=== PATIENT | female | born 1990 | race Caucasian/White ===

== ENCOUNTER 2019-07-13 08:53 | Outpatient (RCR) | payer OTHER, SELFPAY ==
[2019-07-13] MEDS: TETANUS,DIPHTHERIA,AC PERTUSSIS ADULT 0.5 ML (ADACEL) IM (09:17)
[2019-07-13] MEDS: RHO(D) IMMUNE GLOBULIN 300 MCG SYRINGE IM (09:18)
== END 2019-10-10 23:59 | disposition home or self-care (01) ==
LOC: ANHLAB 08:53
PROVIDERS: PCP Internal Medicine; Visit Provider Student in an Organized Health Care Education/Training Program
DX: Z29.13 Encounter for prophylactic Rho(D) immune globulin (principal); O36.0990 Maternal care for other rhesus isoimmunization, unspecified trimester, not applicable or unspecified; Z3A.00 Weeks of gestation of pregnancy not specified; Z23 Encounter for immunization
CPT/HCPCS: 36415; 86900; 86901; 90384; 90715; 96372; J2790

== ENCOUNTER 2019-07-15 09:47 | Outpatient (RCR) | payer OTHER, SELFPAY ==
[2019-07-15 10:21] VITALS: BMI 39.6
== END 2019-10-13 23:59 | disposition home or self-care (01) ==
LOC: ANHDMC 09:47
PROVIDERS: PCP Internal Medicine
DX: O24.410 Gestational diabetes mellitus in pregnancy, diet controlled (principal); Z71.3 Dietary counseling and surveillance; Z71.89 Other specified counseling
CPT/HCPCS: 97802; G0108

== ENCOUNTER 2019-09-15 15:24 | Outpatient (CLI) | payer OTHER, SELFPAY ==
[2019-09-15 15:46] VITALS: BP 156/85; PULSE 77
[2019-09-15 15:57] LABS: Basophils Percent Auto 0.1 % (0.2-1.2); Eosinophils Percent Auto 0.4 % (0-4.4); Hematocrit 35.9 % (37.0-47.0); Hemoglobin 12.1 g/dL (12.0-15.0); Immature Granulocyte Absolute 0.02 K/mm3 (0.00-0.031); Immature Granulocyte Percent A 0.2 % (0-0.5); Lymphocytes Absolute Auto 2.09 K/mm3 (0.9-3.2); Lymphocytes Percent Auto 22.2 % (18.3-44.2); Mean Corpuscular HGB Conc 33.7 g/dl (32-36); Mean Corpuscular Hemoglobin 29.4 pg (26-34); Mean Corpuscular Volume 87.3 fl (80-100); Mean Platelet Volume 9.9 fl (7.4-10.4); Monocytes Absolute Auto 0.6 K/mm3 (0.1-0.6); Monocytes Percent Auto 5.8 % (2.6-8.5); Neutrophils Absolute Auto 6.7 K/mm3 (1.3-6.7); Neutrophils Percent Auto 71.3 % (45.5-73.1); Platelet Count Result 215 k/mm3 (150-375); Red Blood Count 4.11 M/mm3 (4.2-5.4); Red Cell Distribution Width 14.6 % (11.5-14.5); White Blood Count 9.4 K/mm3 (4.5-10.0)
[2019-09-15 16:00] VITALS: BP 146/80; PULSE 73
[2019-09-15 16:02] LABS: Add Urine Microscopic? YES; Appearance Urine Cloudy (Clear); Bacteria Urine 3+ /hpf; Bilirubin Urine Negative (Negative); Blood Urine Negative (Negative); Color Urine Straw (Yellow); Glucose Urine UA Negative (Negative); Ketones Urine Trace mg/dL (Negative); Leukocyte Esterase Ur 3+ LEU/UL (NEGATIVE); Nitrate Urine Negative (Negative); Protein Urine Negative (Negative); Specific Grav Ur 1.006 (1.001-1.035); Squamous Epithelial Cell Urine Many /hpf (Few); Urobilinogen Urine Negative mg/dL (<2.0)
[2019-09-15 16:09] LABS: Alanine Aminotransferase 17 U/L (4-35); Albumin Level 3.4 g/dL (3.5-5.1); Alkaline Phosphatase 184 U/L (38-126); Aspartate Amino Transferase 24 U/L (14-36); Bilirubin,Total 0.2 mg/dL (0.2-1.3); Blood Urea Nitrogen 10 mg/dL (7-17); Calcium 9.3 mg/dL (8.4-10.2); Carbon Dioxide 19 mmol/L (22-30); Chloride 108 mmol/L (98-107); Estimated Glomerular Filt Rate > 60; Glucose 96 mg/dL (65-105); Potassium 3.7 mmol/L (3.4-5.0); Sodium 133 mmol/L (137-145); Uric Acid 5.1 mg/dL (2.5-7.5)
[2019-09-15 16:15] VITALS: BP 139/79; PULSE 71
[2019-09-15 16:17] LABS: Creatinine Urine 16.1 mg/dL; Total Protein Urine Random 14 mg/dL
[2019-09-15 16:30] VITALS: BP 136/75; PULSE 73
[2019-09-15 16:32] VITALS: BP 139/79; PULSE 78
--- NOTE | 2019-09-15 16:44 | PC.NURSE ---
Spoke with Dr Galeana, reveed labs. Orders to discharge to home with a 24 hour urine and twice weekly NST .
== END 2019-09-15 16:41 | disposition home or self-care (01) ==
LOC: ANHOBOP 15:28 → ANHOBPP 15:29
PROVIDERS: PCP Internal Medicine; Visit Provider Student in an Organized Health Care Education/Training Program
DX: O13.9 Gestational [pregnancy-induced] hypertension without significant proteinuria, unspecified trimester (principal); Z3A.00 Weeks of gestation of pregnancy not specified
CPT/HCPCS: 36415; 59025; 80053; 81001; 82570; 84156; 84550; 85025; 87086; 99199

== ENCOUNTER 2019-09-16 18:01 | Outpatient (CLI) | payer OTHER, SELFPAY ==
[2019-09-16 18:21] VITALS: BMI 39.5
[2019-09-16 18:41] LABS: Collection Time Urine 24 HOURS; Patient Weight 252 Lbs; Specific Gravity Ur 1.006; Total Volume 24 Hour Urine 4300 ml
[2019-09-16 20:13] LABS: Creatinine Clearance Urine 149.9 ml/min (75-125); Creatinine Urine 25.8 mg/dL
[2019-09-17 05:18] LABS: Total Protein Urine 24 Hr < 215 mg/24hr (0-149); Total Protein Urine Random < 5.0 mg/dL (0.0-11.9)
== END 2019-09-16 18:02 | disposition home or self-care (01) ==
LOC: ANHOBOP 18:10
PROVIDERS: PCP Internal Medicine; Visit Provider Student in an Organized Health Care Education/Training Program
DX: O13.9 Gestational [pregnancy-induced] hypertension without significant proteinuria, unspecified trimester (principal); Z3A.00 Weeks of gestation of pregnancy not specified
CPT/HCPCS: 81050; 82575; 84156

== ENCOUNTER 2019-09-30 16:21 | Outpatient (RCR) | payer OTHER, SELFPAY ==
[2019-09-18 09:47] VITALS: BP 137/83; PULSE 77
[2019-09-22 16:00] VITALS: BP 131/76; PULSE 77
[2019-09-27 08:03] VITALS: BP 133/77; PULSE 65
[2019-09-30 17:00] VITALS: BP 131/74; PULSE 73
== END 2019-10-06 07:53 | disposition home or self-care (01) ==
LOC: ANHOBOP 16:21
PROVIDERS: PCP Internal Medicine; Visit Provider Student in an Organized Health Care Education/Training Program
DX: O24.419 Gestational diabetes mellitus in pregnancy, unspecified control (principal); O26.891 Other specified pregnancy related conditions, first trimester; R03.0 Elevated blood-pressure reading, without diagnosis of hypertension; Z3A.37 37 weeks gestation of pregnancy; Z3A.38 38 weeks gestation of pregnancy
CPT/HCPCS: 59025

== ENCOUNTER 2019-10-03 18:52 | Inpatient (IN) | payer OTHER, SELFPAY ==
[2019-10-03] VITALS (9 sets, daily range): BP systolic 131–162; BP diastolic 68–103; PULSE 72–84; RESP 20; TEMP 37–37.2; BMI 39.5
--- NOTE | 2019-10-03 18:52 | LDADM ---
This patient, Latisha Laurent, was admitted to Labor/Delivery/Recovery 108 on 10/03/19 at 18:52. Plans for labor, pain management and were discussed with patient. Patient/family oriented to hospital policies and general routines including ID bracelet, bed and alarms, visiting hours, pain management, procedures, bathroom and other care routines, personal items, smoking policy, room service/diet and guest tray routines, security routines, and visiting hours. Patient/Family are encouraged to report perceived risks to care and to ask questions if they do not understand what they are told or what they should do. See OBIX for further documentation.
[2019-10-03 19:34] LABS: Glucose Point of Care 70 (65-105)
[2019-10-03 19:39] LABS: Basophils Percent Auto 0.1 % (0.2-1.2); Eosinophils Percent Auto 0.5 % (0-4.4); Hemoglobin 12.1 g/dL (12.0-15.0); Immature Granulocyte Absolute 0.04 K/mm3 (0.00-0.031); Immature Granulocyte Percent A 0.5 % (0-0.5); Lymphocytes Absolute Auto 2.29 K/mm3 (0.9-3.2); Lymphocytes Percent Auto 28.6 % (18.3-44.2); Mean Corpuscular HGB Conc 34.6 g/dl (32-36); Mean Corpuscular Hemoglobin 29.8 pg (26-34); Mean Corpuscular Volume 86.2 fl (80-100); Mean Platelet Volume 10.3 fl (7.4-10.4); Monocytes Absolute Auto 0.5 K/mm3 (0.1-0.6); Monocytes Percent Auto 5.9 % (2.6-8.5); Neutrophils Absolute Auto 5.2 K/mm3 (1.3-6.7); Neutrophils Percent Auto 64.4 % (45.5-73.1); Platelet Count Result 157 k/mm3 (150-375); Red Blood Count 4.06 M/mm3 (4.2-5.4)
[2019-10-03] MEDS: DINOPROSTONE 10 MG VAG INSERT VAGINAL (19:50)
[2019-10-03 20:46] LABS: Alanine Aminotransferase 18 U/L (4-35); Albumin Level 3.3 g/dL (3.5-5.1); Alkaline Phosphatase 224 U/L (38-126); Aspartate Amino Transferase 29 U/L (14-36); Bilirubin,Total 0.2 mg/dL (0.2-1.3); Blood Urea Nitrogen 12 mg/dL (7-17); Calcium 9.4 mg/dL (8.4-10.2); Carbon Dioxide 18 mmol/L (22-30); Chloride 108 mmol/L (98-107); Estimated CRCL calculation 179 ml/min; Estimated Glomerular Filt Rate > 60; Glucose 93 mg/dL (65-105); Potassium 3.8 mmol/L (3.4-5.0); Sodium 132 mmol/L (137-145); Uric Acid 5.8 mg/dL (2.5-7.5)
[2019-10-03] MEDS: glyBURIDE 5 MG TABLET PO (21:50)
[2019-10-03 23:04] LABS: Glucose Point of Care 103 (65-105)
[2019-10-04] VITALS (121 sets, daily range): BP systolic 106–160; BP diastolic 51–95; PULSE 58–104; RESP 18–20; TEMP 36.3–37.3; O2SAT 96–100
[2019-10-04 02:12] LABS: Glucose Point of Care 98 (65-105)
[2019-10-04 05:35] LABS: Glucose Point of Care 97 (65-105)
[2019-10-04] MEDS: LACTATED RINGERS 1,000 ML 125 ML IV CONT ×2 (05:55→12:30)
[2019-10-04] MEDS: OXYTOCIN 30 UNITS/NS 500 ML 30 UNITS/500 ML BAG IV CONT (05:56)
--- NOTE | 2019-10-04 07:13 | WPDHPUPDATE1 ---
History and Physical Update Update Date/Time: 10/04/19 07:13 29 yo G1 at 39w3d who presents for IOL for gestational diabetes, diet controlled. She endorses good FM. She denies contractions, vaginal bleeding or leakage of fluid. History and Physical has been reviewed, including an updated exam of the patient. There are NO changes in the patient's condition. Risks, benefits, and alternatives have been discussed and questions answered. Patient agrees to proceed with procedure. A/P: admit to L&D routine admission orders Rh neg, will need rhogam after delivery GBS neg FHT cat 1 regular ctx on toco Cervidil overnight will proceed with pitocin continuous EFM
[2019-10-04 07:41] LABS: Rapid Plasma Reagin Non-Reactive (NonReactive)
--- NOTE | 2019-10-04 09:29 | PM.OBPNLAB ---
Pain Control Date/time seen: 10/04/19 09:29 Pain control: tolerating well Comments: BS within normal limits. pt comofortable. Pelvic Exam Dilation (cm): 3 Effacement (%): 50 station: -3 Amniotic membrane status: Ruptured (clear) Comments: AROM for clear fluid Contractions Monitor mode: External Contraction frequency: 4 Contraction pattern: Regular Status status: Category l Assessment and Plan Pitocin rate (mU/min): 14 Assessment: induction ongoing Plan: continuous present management Comments: AROM for clear fluid, IUPC placed
[2019-10-04 09:32] LABS: Glucose Point of Care 80 (65-105)
--- NOTE | 2019-10-04 11:01 | WPDANESEPP ---
Anes - Eval Pre Procedure Procedure: labor epidural Date/Time: 10/04/19 11:01 Surgeon: sabine Pre Op Diagnosis: IOL Patient Data Age: 29 Gender: F Height: 1.7 m Weight: 114.5 kg Last Vital Signs Temp 36.3 C L 10/04/19 08:19 Pulse 58 L 10/04/19 10:21 Resp 20 10/04/19 05:26 BP 154/95 H 10/04/19 10:21 Allergies Allergy/AdvReac Type Severity Reaction Status Date / Time No Known Allergies Allergy Verified 10/01/19 12:53 Home Medications Medication Instructions Recorded Confirmed Type ferrous sulfate [Iron (ferrous 65 mg PO BID 09/18/19 10/03/19 History sulfate)] glyburide 5 mg PO HS 09/18/19 10/03/19 History PNV cmb#95-ferrous fumarate-FA 1 tablet PO DAILY 10/01/19 10/03/19 History [] Laboratory Tests 10/03/19 10/03/19 10/03/19 19:26 19:26 19:26 WBC 8.0 K/mm3 K/mm3 (4.5-10.0) RBC 4.06 M/mm3 L M/mm3 (4.2-5.4) Hgb 12.1 g/dL g/dL (12.0-15.0) Hct 35.0 % L % (37.0-47.0) MCV 86.2 fl fl (80-100) MCH 29.8 pg pg (26-34) MCHC 34.6 g/dl g/dl (32-36) RDW 14.0 % % (11.5-14.5) Plt Count 157 k/mm3 k/mm3 (150-375) MPV 10.3 fl fl (7.4-10.4) Immature Gran % (Auto) 0.5 % % (0-0.5) Neut % (Auto) 64.4 % % (45.5-73.1) Lymph % (Auto) 28.6 % % (18.3-44.2) [place] % (Auto) 5.9 % % (2.6-8.5) Eos % (Auto) 0.5 % % (0-4.4) Baso % (Auto) 0.1 % L % (0.2-1.2) Lymph # (Auto) 2.29 K/mm3 K/mm3 (0.9-3.2) [place] # (Auto) 0.5 K/mm3 K/mm3 (0.1-0.6) Eos # (Auto) 0.0 K/mm3 K/mm3 (0-0.3) Baso # (Auto) 0.0 K/mm3 K/mm3 (0.0-0.1) Abs Immat Gran (auto) 0.04 K/mm3 H K/mm3 (0.00-0.031) Absolute Neuts (auto) 5.2 K/mm3 K/mm3 (1.3-6.7) Absolute Nucleated RBC 0.0 K/mm3 K/mm3 (0.0-0.012) Nucleated RBC % 0.0 % % (0.0-0.2) Sodium Potassium Chloride Carbon Dioxide BUN Creatinine Estim Creat Clear Calc Estimated GFR Glucose POC Capillary Glucose Uric Acid Calcium Total Bilirubin AST ALT Alkaline Phosphatase Total Protein Albumin RPR Non-reactive (NonReactive) Blood Type O Negative Antibody Screen Negative 10/03/19 10/03/19 10/03/19 19:27 19:30 23:02 WBC RBC Hgb Hct MCV MCH MCHC RDW Plt Count MPV Immature Gran % (Auto) Neut % (Auto) Lymph % (Auto) [place] % (Auto) Eos % (Auto) Baso % (Auto) Lymph # (Auto) [place] # (Auto) Eos # (Auto) Baso # (Auto) Abs Immat Gran (auto) Absolute Neuts (auto) Absolute Nucleated RBC Nucleated RBC % Sodium 132 mmol/L L mmol/L (137-145) Potassium 3.8 mmol/L mmol/L (3.4-5.0) Chloride 108 mmol/L H mmol/L (98-107) Carbon Dioxide 18 mmol/L L mmol/L (22-30) BUN 12 mg/dL mg/dL (7-17) Creatinine 0.50 mg/dL L mg/dL (0.7-1.0) Estim Creat Clear Calc 179 ml/min ml/min Estimated GFR > 60 (59 - ) Glucose 93 mg/dL mg/dL (65-105) POC Capillary Glucose 70 mg/dl mg/dl 103 mg/dl mg/dl (65-105) (65-105) Uric Acid 5.8 mg/dL mg/dL (2.5-7.5) Calcium 9.4 mg/dL mg/dL (8.4-10.2) Total Bilirubin 0.2 mg/dL mg/dL (0.2-1.3) AST 29 U/L U/L (14-36) ALT 18 U/L U/L (4-35) Alkaline Phosphatase 224 U/L H U/L (38-126) Total Pr
[2019-10-04 14:51] LABS: Glucose Point of Care 105 (65-105)
[2019-10-04] MEDS: ACETAMINOPHEN 500 MG TABLET 1000 MG PO (17:35)
[2019-10-04 17:45] LABS: Glucose Point of Care 91 (65-105)
[2019-10-04] MEDS: ONDANSETRON INJ 4 MG/2 ML VIAL IV PUSH (18:48)
[2019-10-04 22:08] LABS: Glucose Point of Care 103 (65-105)
[2019-10-05] VITALS (42 sets, daily range): BP systolic 113–162; BP diastolic 57–90; PULSE 65–167; RESP 14–16; TEMP 36.5–37.5; O2SAT 98
[2019-10-05] MEDS: LACTATED RINGERS 1,000 ML 125 ML IV CONT (00:08)
[2019-10-05 00:16] LABS: Glucose Point of Care 120 (65-105)
[2019-10-05] MEDS: ONDANSETRON INJ 4 MG/2 ML VIAL IV PUSH (00:48)
[2019-10-05] MEDS: ACETAMINOPHEN 500 MG TABLET 1000 MG PO (01:35)
[2019-10-05 03:21] LABS: Glucose Point of Care 116 (65-105)
[2019-10-05] MEDS: AMPICILLIN 2 GM/NS 100 ML 2 GM/100 ML BAG IVPB (03:42)
[2019-10-05] MEDS: OXYTOCIN 30 UNITS/NS 500 ML 30 UNITS/500 ML BAG IV CONT (04:05)
[2019-10-05] MEDS: MISOPROSTOL 200 MCG TABLET 800 MCG (06:47)
--- NOTE | 2019-10-05 06:52 | PM.OBPRVD ---
OB - Delivery Note Procedure Procedure: Patient pushed for a spontaneous vaginal delivery. The fetus was delivered atraumatically and placed on the maternal abdomen. The cord was clamped and cut after 1 minute of life. The cord was double clamped and cut and a segment of cord was collected for cord gases. Cord blood was collected for blood type and Coomb's testing. The placenta delivered spontaneously and was noted to be intact. The perineum was inspected and there was a 2nd degree perineal laceration. The laceration was repaired with 3-0 vicryl in the usual fashion. The uterus was noted to be boggy with brisk bleeding. 800 mcg of cytotec was placed SC. Fundal massage was applied. The uterus was firm and good hemostasis was noted after interventions. The patient and fetus were stable in the delivery room. events: Gestational Diabetes Intrapartal events: None Induction method: other (Dinoprostone ) Delivery augmentation: rupture of membranes and pitocin Delivery monitor: external FHT and internal uterine Route of delivery: Episiotomy description: None Laceration description: Perineal - 2nd Degree Delivery repair: vicryl Specimen: No Estimated blood loss (mL): 350 Anesthesia type: Epidural Disposition: floor () Complications: No immediate complications [place] [facility] Date of : 10/05/19 Time of : 06:31 Weeks of gestation at delivery: 39 Infant gender: Female Weight (pounds): 7 Weight (ounces): 14 presentation: vertex position: Right Occiput Anterior Placenta delivery description: Spontaneous cord vessel description: 3 Vessels score one minute: 8 score five minutes: 9
[2019-10-05] MEDS: OXYTOCIN 30 UNITS/NS 500 ML 30 UNITS/500 ML BAG 125 UNITS IV CONT (07:11)
[2019-10-05] MEDS: WITCH HAZEL 40 PADS 1 PAD TOPICAL (08:20)
[2019-10-05] MEDS: IBUPROFEN 600 MG TABLET PO ×3 (08:20→21:33)
[2019-10-05] MEDS: BENZOCAINE 20% AER SPR (*SP) 56 GM CAN 1 SPRAY TOPICAL (08:20)
--- NOTE | 2019-10-05 09:48 | OBPPTRN ---
Patient transferred to post room # 281 via wheelchair. Support person present. Oriented to unit, room, information board, rooming in, admission packet and security measures. Patient verbalizes understanding.
--- NOTE | 2019-10-05 10:05 | PC.NURSE ---
Consult with pt., mother states she wishes to pump and bottle feed. Offered to assist mother with pumping. Mother states she will bottle feed while here in the hospital and will begin pumping once at home. Discussed stimulation and milk supply. Mother states she may pump, she will inform LC if she is ready.
[2019-10-06] MEDS: IBUPROFEN 600 MG TABLET PO (05:27)
[2019-10-06 05:33] LABS: Hematocrit 26.8 % (37.0-47.0); Hemoglobin 9.3 g/dL (12.0-15.0)
--- NOTE | 2019-10-06 07:05 | PM.OBDSVD ---
OB - DS: Summary OB Procedures : None OB Procedures Intrapartum: Spontaneous Vag Delivery OB Procedures: : None Status at Discharge Functional status at discharge: independent ambulation Overall status at discharge: patient is back to baseline Time Spent with Patient Time attestation: Total time spent providing and/or coordinating discharge services: Time spent: Less than 30 minutes Exam Const: General: comfortable and no acute distress Resp: Effort & Inspection: normal respiratory effort Auscultation: clear to auscultation bilaterally Cardio: Rate: regular rate GI: GI Palp: Yes Soft to palpation Auscultation: normal bowel sounds Other: Fundus firm below umbilicus Psych: Appearance: grossly normal Mental Status: mental status grossly normal Affect: normal affect DS: Data Data Completed and Pending Labs on day of discharge: Labs from last 24 hours 10/06/19 05:25 Hgb 9.3 L Hct 26.8 L Discharge Plan Discharge Attending physician on discharge: Kleber Galeana Discharging Clinician: Kleber Galeana Patient Disposition: Home, Self-Care Activity: as tolerated and pelvic rest Diet: regular Discharge Instructions: call or return for temperature >100.4, bleeding >2 pads/hr for 2 hrs, pain not controlled with medications, signs/symptoms of mastitis Patient Instructions: Antibiotic Form, Vaginal Delivery (DC) Stand Alone Forms: General Discharge Information Follow-up/Referrals: Kleber Galeana MD [Physician] - Discharge Medications: New acetaminophen [Mapap (acetaminophen)] 325 mg Tablet 650 mg PO Q6H PRN (Reason: Mild Pain (1-3) Or Headache) Qty: 30 RF: 0 Dermoplast (with menthol) 20-0.5 % Aerosol 1 spray topical PRN PRN (Reason: Perineal Discomfort) Qty: 1 RF: 0 ibuprofen 600 mg Tablet 600 mg PO Q6H PRN (Reason: Cramping) Qty: 30 RF: 0 Puy-B-Jrpewo Cream 1 applic topical PRN PRN (Reason: Sore Nipples) Qty: 1 RF: 0 Continued ferrous sulfate [Iron (ferrous sulfate)] 325 mg (65 mg iron) tablet 65 mg PO BID RF: 0 PNV cmb#95-ferrous fumarate-FA [] 28 mg iron- 800 mcg Tablet 1 tablet PO DAILY RF: 0 Discontinued glyburide 5 mg Tablet 5 mg PO HS RF: 0 Date of admission: 10/03/19 18:52 Primary Care Provider: Nilesh,Eliu Telles Admitting Provider: Kleber Galeana Attending physician on admission: Kleber Galeana
[2019-10-06 07:50] VITALS: BP 121/79; PULSE 64; RESP 18; TEMP 36.6; O2SAT 98
--- NOTE | 2019-10-06 08:21 | PC.NURSE ---
On 10/06/19, all charting on this pt. from [phone] to [phone] under the name Candelaria Parsons RN was actually performed and completed by Olga Logan RN
[2019-10-06] MEDS: WITCH HAZEL 40 PADS 1 PAD TOPICAL (09:01)
[2019-10-06] MEDS: BENZOCAINE 20% AER SPR (*SP) 56 GM CAN 1 SPRAY TOPICAL (09:01)
[2019-10-06] MEDS: POLYSACCHARIDE IRON COMPLEX 150 MG CAPSULE PO (09:01)
[2019-10-06] MEDS: MULTIVIT/MIN/PREN/FOL AC/IRON TABLET 1 TAB PO (09:01)
[2019-10-06] MEDS: DOCUSATE SODIUM 100 MG CAPSULE PO (09:01)
--- NOTE | 2019-10-06 09:34 | WPDANLDPN2 ---
Anes-Prog Note L&D Date/Time: 10/06/19 09:34 Comfortable throughout: labor and delivery Neuraxial method: epidural Epidural/Spinal procedure site: clean & non-tender Neuro status: Neuro function grossly intact. Cardiovascular status: normal Respiratory status: normal Airway patency: baseline Mental status: baseline Post-Op hydration status: normal Vital Signs: Last Vital Signs Temp 36.6 C 10/06/19 07:50 Pulse 64 10/06/19 07:50 Resp 18 10/06/19 07:50 BP 121/79 10/06/19 07:50 Pulse Ox 98 10/06/19 07:50 Post-procedural complaints: none Patient feedback: Patient satisfied with anesthetic care.
--- NOTE | 2019-10-06 10:30 | PC.NURSE ---
Consult with pt., offering to assist with pumping before discharge. Mother does not wish to pump. Discussed mother's wishes for education of engorgement or pumping. Mother states she is unsure and will seek assist from family if needed.
[2019-10-07 08:35] VITALS: BP 146/90; PULSE 62; RESP 24
== END 2019-10-06 11:06 | disposition home or self-care (01) | DRG 806 ==
LOC: ANHLDR 23:06 → ANHOB2 10-05 10:06
PROVIDERS: Admitting Provider Student in an Organized Health Care Education/Training Program; PCP Internal Medicine; Visit Provider Student in an Organized Health Care Education/Training Program
DX: O42.02 Full-term premature rupture of membranes, onset of labor within 24 hours of rupture (principal); O36.0930 Maternal care for other rhesus isoimmunization, third trimester, not applicable or unspecified; Z37.0 Single live birth; O24.420 Gestational diabetes mellitus in childbirth, diet controlled; Z3A.39 39 weeks gestation of pregnancy; O36.8330 Maternal care for abnormalities of the fetal heart rate or rhythm, third trimester, not applicable or unspecified; O70.1 Second degree perineal laceration during delivery; O99.214 Obesity complicating childbirth; E66.9 Obesity, unspecified; O99.02 Anemia complicating childbirth; D64.9 Anemia, unspecified
CPT/HCPCS: 36415; 80053; 84550; 85014; 85018; 85025; 86592; 86850; 86900; 86901; A9270; J0290; J2405; J2590; J2795; J7120

== ENCOUNTER → 2020-04-17 12:47 | Outpatient (CLI) | payer OTHER, SELFPAY ==
--- NOTE | ~2020-04-17 | MMUS_ITS ---
EXAMINATION: MM diagnostic mauri BI w hernán, US breast LT limited HISTORY: Left breast abnormality TECHNIQUE: Additional 3-D tomosynthesis images of the left breast were performed and synthetic 2-D im ages were generated. CAD analysis was submitted and interpreted. High resolution Limited left breast ultrasound was performed. COMPARISON: None BREAST PARENCHYMAL COMPOSITION: Breast composed of scattered areas of fibroglandular density FINDINGS: MAMMOGRAPHIC FINDINGS: There are no suspicious masses, calcifications or architectural distortion in either breast to sugges t malignancy. ULTRASOUND: Limited left breast ultrasound: There is an oval circumscribed hypoechoic mass with parallel orientat ion and internal striations parallel to the skin surface measuring 1.8 x 0.5 x 1.4 cm, compatible wit h benign lipoma. No internal vascularity or posterior features. No suspicious masses to suggest malig edy. IMPRESSION: 1. No evidence for malignancy in either breast. Benign findings of the left breast. BI-RADS CATEGORY 2 - BENIGN FINDINGS Reviewed, dictated and finalized at location A. T OFFICE AGENT IMPRESSION: 1. No evidence for malignancy in either breast. Benign findings of the left ivan ast. BI-RADS CATEGORY 2 - BENIGN FINDINGS
== END ==
PROVIDERS: PCP Internal Medicine; Visit Provider Student in an Organized Health Care Education/Training Program
DX: N63.20 Unspecified lump in the left breast, unspecified quadrant (principal)
CPT/HCPCS: 76642; 77062; 77066; G0279

== ENCOUNTER 2021-02-11 10:30 | Day surgery (SDC) | payer BC, SELFPAY ==
[2021-02-11] VITALS (18 sets, daily range): BP systolic 97–146; BP diastolic 54–112; PULSE 67–98; RESP 12–30; TEMP 36.2–36.7; O2SAT 97–100
--- NOTE | ~2021-02-11 | US_ITS ---
EXAMINATION: US OB <=14 wk fetus w TV DATE: 02/11/2021 11:29 INDICATION: Vaginal bleeding during first trimester TECHNIQUE: Real-time pelvic transabdominal and transvaginal ultrasound was performed. COMPARISON: None. FINDINGS: The uterus measures 10.3 x 5.4 x 4.0 cm. There is a complex fluid collection in the endocer vical canal. The ovaries are not visualized however no adnexal abnormality is seen. There is no free fluid in the pelvis. IMPRESSION: 1. Complex fluid collection in the endocervical canal possibly reflecting in progress. Reviewed, dictated and finalized at location A. IMPRESSION: 1. Complex fluid collection in the endocervical canal possibly reflecting abort ion in progress.
[2021-02-11 11:05] LABS: Basophils Percent Auto 0.3 % (0.2-1.2); Eosinophils Absolute Auto 0.1 K/mm3 (0-0.3); Hematocrit 38.8 % (37.0-47.0); Hemoglobin 13.2 g/dL (12.0-15.0); Immature Granulocyte Absolute 0.05 K/mm3 (0.00-0.031); Immature Granulocyte Percent A 0.5 % (0-0.5); Lymphocytes Absolute Auto 3.08 K/mm3 (0.9-3.2); Lymphocytes Percent Auto 30.2 % (18.3-44.2); Mean Corpuscular Hemoglobin 29.3 pg (26-34); Mean Corpuscular Volume 86.2 fl (80-100); Mean Platelet Volume 8.7 fl (7.4-10.4); Monocytes Absolute Auto 0.8 K/mm3 (0.1-0.6); Monocytes Percent Auto 7.6 % (2.6-8.5); Neutrophils Absolute Auto 6.2 K/mm3 (1.3-6.7); Neutrophils Percent Auto 60.4 % (45.5-73.1); Platelet Count Result 273 k/mm3 (150-375); Red Cell Distribution Width 12.4 % (11.5-14.5); White Blood Count 10.2 K/mm3 (4.5-10.0)
--- NOTE | 2021-02-11 11:27 | PC.NURSE ---
RN called to ultra sound due to patient's feeling light headed, patient stable at time of arrival and reports that she stood up and got dizzy. patient's vitals stable at this time, EDP aware.
--- NOTE | 2021-02-11 12:03 | ED.PREGNANCY ---
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 Patient reports she had an US last week that showed impending miscarriage with no yolk sac. She has been have mild vaginal spotting. Just prior to arrival she developed heavy vaginal bleeding and she is passing large clots. She was having lower abdominal cramping but that has resolved. She denies being lightheaded or dizzy currently. Her blood type is O negative. OBGYN is Dr. Galeana. Related Data Home Medications Medication Instructions Recorded Confirmed ferrous sulfate [Iron (ferrous 65 mg PO BID 09/18/19 10/03/19 sulfate)] PNV cmb#95-ferrous fumarate-FA 1 tablet PO DAILY 10/01/19 10/03/19 [] Allergies Allergy/AdvReac Type Severity Reaction Status Date / Time No Known Allergies Allergy Verified 02/11/21 10:43 Review of Systems Review of Systems: All systems reviewed & are unremarkable except as noted in HPI and below PMFSH Past Medical History Medical History Anemia Gestational diabetes Obesity Family History Family History Father Hypertension Renal cell carcinoma Mother Hypertension Social History Social History Smoking status: Never smoker Substance use: never Spiritual care concerns: No Exam Const: General: no acute distress and alert Orientation/consciousness: patient oriented x3 HENMT: Head: normocephalic and atraumatic Face and sinus: face symmetric Eyes: EOM: EOMs intact bilaterally Resp: Effort & Inspection: normal respiratory effort and no retractions Auscultation: clear to auscultation bilaterally Cardio: Rate: regular rate Rhythm: regular rhythm Heart sounds: no murmurs GI: GI Palp: Yes Soft to palpation, No Tenderness to palpation present (GI) and No Guarding due to palpation present (GI) Auscultation: normal bowel sounds : Other: open cervix, large red clot in vulva and vaginal vault, able to clear and small clot coming from cervix but no immediate blood pooling Neuro: General: patient oriented x3, moves all extremities and CN's II-XI intact bilaterally Extrem: General: normal to inspection Psych: Mental Status: mental status grossly normal Affect: normal affect Course Reevaluation(s) Reevaluation #1: I discussed with patient plan to go to OR for D and C. Date: 02/11/21 Time: 12:00 Consultations Consultation #1: Dr. Rosa Reid in ER to take patient to get D and C for her miscarriage. PAtient was complaining of being lightheaded so IV fluids started. Rhogam pending Date: 02/11/21 Time: 12:11 Vital Signs Vital signs: Vital Signs Temperature 98.0 F 02/11/21 10:37 Pulse Rate 72 02/11/21 10:37 Respiratory Rate 17 02/11/21 10:37 Blood Pressure 146/112 H 02/11/21 10:37 Pulse Oximetry 98 02/11/21 10:37 Temperature 97.2 F L 02/11/21 14:10 Pulse Rate 70 02/11/21 14:30 Respiratory Rate 16 02/11/21 14:30 Blood Pressure 116/77 02/11/21 14:30 Pulse Oximetry 98 02/11/21 13:35 MDM - OB/Uterine Contractions Lab Data Attestation: I reviewed the patient's lab results. Result diagrams: 02/11/21 10:48 Labs: Lab Results 02/11/21 02/11/21 02/11/21 Range/Units 10:48 10:48 10:48 WBC 10.2 H (4.5-10.0) K/mm3 RBC 4.50 (4.2-5.4) M/mm3 Hgb 13.2 D (12.0-15.0) g/dL Hct 38.8 (37.0-47.0) % MCV 86.2 (80-100) fl MCH 29.3 (26-34) pg MCHC 34.0 (32-36) g/dl RDW 12.4 (11.5-14.5) % Plt Count 273 D (150-375
--- NOTE | 2021-02-11 12:06 | WPDANESEPP ---
Anes - Eval Pre Procedure Procedure: Operation Date: 02/11/21 12:30 Proposed Procedures p D&C Suction and Sharp - Peter Corona MD Date/Time: 02/11/21 12:06 Pre Op Diagnosis: miscarriage Patient Data Age: 31 Gender: F Height: 1.7 m Weight: 103.1 kg Last Vital Signs Temp 36.7 C 02/11/21 10:37 Pulse 72 02/11/21 12:00 Resp 20 02/11/21 12:00 BP 97/54 L 02/11/21 12:00 Pulse Ox 99 02/11/21 12:00 Allergies Allergy/AdvReac Type Severity Reaction Status Date / Time No Known Allergies Allergy Verified 02/11/21 10:43 Home Medications Medication Instructions Recorded Confirmed Type ferrous sulfate [Iron (ferrous 65 mg PO BID 09/18/19 10/03/19 History sulfate)] PNV cmb#95-ferrous fumarate-FA 1 tablet PO DAILY 10/01/19 10/03/19 History [] acetaminophen [Mapap 650 mg PO Q6H PRN #30 tablet 10/06/19 Rx (acetaminophen)] benzocaine-menthol [Dermoplast 1 spray TOPICAL PRN PRN #1 g 10/06/19 Rx (with menthol)] ibuprofen 600 mg PO Q6H PRN #30 tablet 10/06/19 Rx lanolin [Kzp-N-Majxnp] 1 applic TOPICAL PRN PRN #1 g 10/06/19 Rx Laboratory Tests 02/11/21 02/11/21 10:48 10:48 WBC 10.2 K/mm3 H K/mm3 (4.5-10.0) RBC 4.50 M/mm3 M/mm3 (4.2-5.4) Hgb 13.2 g/dL D g/dL (12.0-15.0) Hct 38.8 % % (37.0-47.0) MCV 86.2 fl fl (80-100) MCH 29.3 pg pg (26-34) MCHC 34.0 g/dl g/dl (32-36) RDW 12.4 % % (11.5-14.5) Plt Count 273 k/mm3 D k/mm3 (150-375) MPV 8.7 fl fl (7.4-10.4) Immature Gran % (Auto) 0.5 % % (0-0.5) Neut % (Auto) 60.4 % % (45.5-73.1) Lymph % (Auto) 30.2 % % (18.3-44.2) [place] % (Auto) 7.6 % % (2.6-8.5) Eos % (Auto) 1.0 % % (0-4.4) Baso % (Auto) 0.3 % % (0.2-1.2) Lymph # (Auto) 3.08 K/mm3 K/mm3 (0.9-3.2) [place] # (Auto) 0.8 K/mm3 H K/mm3 (0.1-0.6) Eos # (Auto) 0.1 K/mm3 K/mm3 (0-0.3) Baso # (Auto) 0.0 K/mm3 K/mm3 (0.0-0.1) Abs Immat Gran (auto) 0.05 K/mm3 H K/mm3 (0.00-0.031) Absolute Neuts (auto) 6.2 K/mm3 K/mm3 (1.3-6.7) Absolute Nucleated RBC 0.0 K/mm3 K/mm3 (0.0-0.012) Nucleated RBC % 0.0 % % (0.0-0.2) Beta HCG, Quant 8952.80 mIU/ML mIU/ML Patient hx anesthesia problems: none Family hx anesthesia problems: none Results Review: All pre-operative results and documents have been reviewed as part of the pre-operative evaluation. [facility] Past Medical History Medical History Anemia Gestational diabetes Obesity Family History Family History Father Hypertension Renal cell carcinoma Mother Hypertension Social History Social History Smoking status: Never smoker Substance use: never Spiritual care concerns: No Exam Day of Procedure 02/11/21 12:06 Patient weight: obese Heart: regular rate and rhythm Lungs: normal air movement Airway: Mallampati scale
--- NOTE | 2021-02-11 12:12 | PM.IMHP ---
H&P: HPI History of Present Illness Date/Time: 02/11/21 12:12 31-year-old multiparous patient with first-trimester incomplete AB. She was seen through the ER with heavy bleeding and ultrasound proves were tissue remaining. Risks and benefits reviewed. Chief Complaint: Early bleeding Review of Systems Review of Systems: All systems reviewed & are unremarkable except as noted in HPI and below PMFSH Past Medical History Medical History Anemia Gestational diabetes Obesity Family History Family History Father Hypertension Renal cell carcinoma Mother Hypertension Social History Social History Smoking status: Never smoker Substance use: never Spiritual care concerns: No Meds Home Medications and Allergies Home Medications Medication Instructions Recorded Confirmed Type ferrous sulfate [Iron (ferrous 65 mg PO BID 09/18/19 10/03/19 History sulfate)] PNV cmb#95-ferrous fumarate-FA 1 tablet PO DAILY 10/01/19 10/03/19 History [] acetaminophen [Mapap 650 mg PO Q6H PRN #30 tablet 10/06/19 Rx (acetaminophen)] benzocaine-menthol [Dermoplast 1 spray TOPICAL PRN PRN #1 g 10/06/19 Rx (with menthol)] ibuprofen 600 mg PO Q6H PRN #30 tablet 10/06/19 Rx lanolin [Wkc-J-Ckaqhu] 1 applic TOPICAL PRN PRN #1 g 10/06/19 Rx Allergies Allergy/AdvReac Type Severity Reaction Status Date / Time No Known Allergies Allergy Verified 02/11/21 10:43 Vital Signs Vital Signs - 24 hr 02/11/21 10:37 02/11/21 11:27 02/11/21 11:54 Temperature 98.0 F Pulse Rate 72 84 71 Respiratory Rate 17 18 22 H Blood Pressure 146/112 H 127/66 111/59 L Pulse Oximetry 98 98 98 02/11/21 12:00 Temperature Pulse Rate 72 Respiratory Rate 20 Blood Pressure 97/54 L Pulse Oximetry 99 Exam Const: General: no acute distress Eyes: General: appearance normal, both eyes and all related structures Neck: Neck: supple and no JVD Thyroid: thyroid normal Resp: Effort & Inspection: normal respiratory effort Auscultation: clear to auscultation bilaterally Cardio: Rate: regular rate Rhythm: regular rhythm GI: Inspection: non-distended GI Palp: Yes Soft to palpation, No Tenderness to palpation present (GI) and No Guarding due to palpation present (GI) Auscultation: normal bowel sounds : External Female Exam: normal external appearance Speculum Exam - Vagina: normal appearance of the vagina and vaginal bleeding Speculum Exam - Cervix: Cervical os open Bimanual exam- vagina & uterus: enlarged Skin: General skin exam: no rashes or lesions noted Extrem: General: normal to inspection and no edema Psych: Mental Status: mental status grossly normal Affect: normal affect H&P: Results Labs Labs: Short CBC 02/11/21 Range/Units 10:48 WBC 10.2 H (4.5-10.0) K/mm3 Hgb 13.2 D (12.0-15.0) g/dL Hct 38.8 (37.0-47.0) % Plt Count 273 D (150-375) k/mm3 Assessment and Plan Additional Plan Impression: 1st trimester incomplete AB Plan: Suction dilatation curettage. Risks and benefits reviewed. She will require RhoGAM postop
--- NOTE | 2021-02-11 12:13 | WPDHPUPDATE1 ---
History and Physical Update Update Date/Time: 02/11/21 12:13 History and Physical has been reviewed, including an updated exam of the patient. There are NO changes in the patient's condition. Risks, benefits, and alternatives have been discussed and questions answered. Patient agrees to proceed with procedure.
[2021-02-11] MEDS: LACTATED RINGERS 1,000 ML 30 ML IV CONT (12:35)
--- NOTE | 2021-02-11 12:46 | W.PM.PROC2 ---
Procedure Note - Detailed Date of Procedure 02/11/21 Pre-op Diagnosis miscarriage Post-op Diagnosis same Procedure Performed Suction dilatation and curettage Surgeon Peter Corona MD Anesthesia general Indications This is a 31-year-old with an incomplete AB Findings Products of conception Description of Procedure The patient was prepped draped in the normal sterile fashion placed in the dorsal lithotomy position. Under excellent general endotracheal anesthesia weighted speculum placed in posterior fornix vagina. Anterior lip of the cervix grasped with a ring forceps. Uterus sounded to 10cm. Serial dilatation with fragmented dilators performed followed passes the 10. Suction curette pretty. When a good grating sound was heard no further tissue was removed. The procedure was terminated all sponge, needle, instrument counts were correct. There were no immediate complications Estimated Blood Loss 25 Drains No Packing No Pathology yes Complications No immediate complications Condition stable Disposition PACU
--- NOTE | 2021-02-11 14:17 | PC.NURSE ---
1415 rhogam shot given to pt in rt upper arm.
--- NOTE | 2021-02-11 14:33 | SUR.PHASEII ---
1430 pt doing ok after rhogam shot, pt ready to be discharged. vital signs stable. no pain on roomair
== END 2021-02-11 14:40 | disposition home or self-care (01) ==
LOC: ANHED 12:02 → ANHSURGERY 12:13
PROVIDERS: Emergency Provider General Practice; PCP Internal Medicine; Visit Provider Obstetrics & Gynecology
PROC: (CPT 59812; principal; 2021-02-11 12:30)
DX: O03.4 Incomplete spontaneous abortion without complication (principal); Z3A.12 12 weeks gestation of pregnancy
CPT/HCPCS: 59812; 36415; 76801; 76817; 84702; 85025; 85461; 88305; 90384; 99285; A9270; J0330; J2250; J2270; J2405; J2704; J2790; J7030; J7120

== ENCOUNTER 2022-09-11 14:07 | Outpatient (RCR) | payer OTHER, SELFPAY ==
[2022-08-03 09:23] VITALS: BP 122/62; PULSE 87
[2022-08-08 13:11] VITALS: BP 120/62; PULSE 78
[2022-08-15 07:50] VITALS: BP 127/57; PULSE 74
[2022-08-22 14:46] VITALS: BP 128/65; PULSE 79
[2022-08-29 16:12] VITALS: BP 125/64; PULSE 76
[2022-09-05 14:31] VITALS: BP 119/64; PULSE 74
[2022-09-11] VITALS (8 sets, daily range): BP systolic 115–122; BP diastolic 64–65; PULSE 78–88; O2SAT 98–99
== END 2022-09-20 17:41 | disposition home or self-care (01) ==
LOC: ANHOBOP 14:07
PROVIDERS: Visit Provider Obstetrics & Gynecology
DX: O24.419 Gestational diabetes mellitus in pregnancy, unspecified control (principal); Z3A.32 32 weeks gestation of pregnancy; O16.3 Unspecified maternal hypertension, third trimester; Z3A.33 33 weeks gestation of pregnancy; Z3A.34 34 weeks gestation of pregnancy; Z3A.35 35 weeks gestation of pregnancy; Z3A.36 36 weeks gestation of pregnancy; Z3A.37 37 weeks gestation of pregnancy; Z3A.38 38 weeks gestation of pregnancy
CPT/HCPCS: 59025

== ENCOUNTER 2022-09-18 16:01 | Inpatient (IN) | payer OTHER, SELFPAY ==
[2022-09-18] VITALS (10 sets, daily range): BP systolic 121–134; BP diastolic 63–73; PULSE 68–89; RESP 16–18; TEMP 36.2–36.7; BMI 40.1
[2022-09-18 16:35] LABS: Basophils Percent Auto 0.1 % (0.2-1.2); Eosinophils Percent Auto 0.5 % (0-4.4); Hemoglobin 10.7 g/dL (12.0-15.0); Immature Granulocyte Absolute 0.04 K/mm3 (0.00-0.031); Immature Granulocyte Percent A 0.5 % (0-0.5); Lymphocytes Absolute Auto 1.84 K/mm3 (0.9-3.2); Lymphocytes Percent Auto 20.9 % (18.3-44.2); Mean Corpuscular HGB Conc 33.4 g/dl (32-36); Mean Corpuscular Volume 83.8 fl (80-100); Mean Platelet Volume 9.2 fl (7.4-10.4); Monocytes Absolute Auto 0.5 K/mm3 (0.1-0.6); Monocytes Percent Auto 6.1 % (2.6-8.5); Neutrophils Absolute Auto 6.4 K/mm3 (1.3-6.7); Neutrophils Percent Auto 71.9 % (45.5-73.1); Platelet Count Result 213 k/mm3 (150-375); Red Blood Count 3.82 M/mm3 (4.2-5.4); Red Cell Distribution Width 13.6 % (11.5-14.5); White Blood Count 8.8 K/mm3 (4.5-10.0)
--- NOTE | 2022-09-18 16:40 | LDADM ---
This patient, Latisha Laurent, was admitted to Labor/Delivery/Recovery 108 on 09/18/22 at 16:01. Plans for labor, pain management and were discussed with patient. Patient/family oriented to hospital policies and general routines including ID bracelet, bed and alarms, visiting hours, pain management, procedures, bathroom and other care routines, personal items, smoking policy, room service/diet and guest tray routines, security routines, and visiting hours. Patient/Family are encouraged to report perceived risks to care and to ask questions if they do not understand what they are told or what they should do. See OBIX for further documentation.
[2022-09-18 16:46] LABS: Alanine Aminotransferase 26 U/L (6-35); Albumin Level 3.3 g/dL (3.5-5.1); Alkaline Phosphatase 175 U/L (38-126); Anion Gap 6 mmol/L (8-16); Aspartate Amino Transferase 28 U/L (14-36); Bilirubin,Total 0.3 mg/dL (0.2-1.3); Blood Urea Nitrogen 13 mg/dL (7-17); Calcium 8.7 mg/dL (8.4-10.2); Carbon Dioxide 22 mmol/L (22-30); Chloride 107 mmol/L (98-107); Estimated CRCL calculation 149 ml/min; Estimated Glomerular Filt Rate > 60; Glucose 97 mg/dL (65-110); Potassium 3.7 mmol/L (3.4-5.0); Sodium 135 mmol/L (137-145)
[2022-09-18] MEDS: DINOPROSTONE 10 MG VAG INSERT VAGINAL (16:56)
[2022-09-18 17:08] LABS: Uric Acid 4.4 mg/dL (2.5-7.5)
--- NOTE | 2022-09-18 18:14 | WPDANESEPPF ---
Anes - Initial Pre Proc Eval Procedure: Labor Epidural Date/Time: 09/18/22 18:14 Surgeon: Sukhdev Gutierrez MD Pre Op Diagnosis: Labor pain Pre Op Diagnosis: IOL Patient Data Age: 32 Gender: F Height: 1.7 m Weight: 116.4 kg Last Vital Signs Pulse 83 09/18/22 18:00 BP 133/68 09/18/22 18:00 O2 Del Method Room Air 09/18/22 16:38 Allergies Allergy/AdvReac Type Severity Reaction Status Date / Time No Known Allergies Allergy Verified 09/18/22 16:45 Home Medications Medication Instructions Recorded Confirmed Type vit no.95-ferrous 1 tablet PO DAILY 10/01/19 09/18/22 History fumarate 28 mg-folic acid 800 mcg tablet () nifedipine 30 mg tablet,extended 30 mg PO DAILY 08/08/22 09/18/22 History release 24 hr glyburide 5 mg tablet 10 mg PO DAILY 09/05/22 09/05/22 History Laboratory Tests 09/18/22 16:15 WBC 8.8 K/mm3 (4.5-10.0) RBC 3.82 L M/mm3 (4.2-5.4) Hgb 10.7 L g/dL (12.0-15.0) Hct 32.0 L % (37.0-47.0) MCV 83.8 fl (80-100) MCH 28.0 pg (26-34) MCHC 33.4 g/dl (32-36) RDW 13.6 % (11.5-14.5) Plt Count 213 k/mm3 (150-375) MPV 9.2 fl (7.4-10.4) Immature Gran % (Auto) 0.5 % (0-0.5) Neut % (Auto) 71.9 % (45.5-73.1) Lymph % (Auto) 20.9 % (18.3-44.2) [place] % (Auto) 6.1 % (2.6-8.5) Eos % (Auto) 0.5 % (0-4.4) Baso % (Auto) 0.1 L % (0.2-1.2) Lymph # (Auto) 1.84 K/mm3 (0.9-3.2) Treg[place] # (Auto) 0.5 K/mm3 (0.1-0.6) Eos # (Auto) 0.0 K/mm3 (0-0.3) Baso # (Auto) 0.0 K/mm3 (0.0-0.1) Abs Immat Gran (auto) 0.04 H K/mm3 (0.00-0.031) Absolute Neuts (auto) 6.4 K/mm3 (1.3-6.7) Absolute Nucleated RBC 0.0 K/mm3 (0.0-0.012) Nucleated RBC % 0.0 % (0.0-0.2) Sodium 135 L mmol/L (137-145) Potassium 3.7 mmol/L (3.4-5.0) Chloride 107 mmol/L (98-107) Carbon Dioxide 22 mmol/L (22-30) Anion Gap 6 L mmol/L (8-16) BUN 13 mg/dL (7-17) Creatinine 0.60 L mg/dL (0.7-1.0) Estim Creat Clear Calc 149 ml/min Estimated GFR > 60 (59 - ) Glucose 97 mg/dL (65-110) Uric Acid 4.4 mg/dL (2.5-7.5) Calcium 8.7 mg/dL (8.4-10.2) Total Bilirubin 0.3 mg/dL (0.2-1.3) AST 28 U/L (14-36) ALT 26 U/L (6-35) Alkaline Phosphatase 175 H U/L (38-126) Total Protein 7.0 g/dL (6.3-8.2) Albumin 3.3 L g/dL (3.5-5.1) RPR Pending Blood Type O Negative Antibody Screen Negative Patient hx anesthesia problems: none Family hx anesthesia problems: none Results Review: All pre-operative results and documents have been reviewed as part of the pre-operative evaluation. [facility] Past Medical History Medical History Anemia Gestational diabetes Obesity Family History Family History Father Hypertension Renal cell carcinoma Mother Hypertension Social History Social History Smoking status: Never smoker Substance use: never Lack of Transportation: No Lack of Food: Never True Current Housing: I Have Housing Concerned About Future Housing: No Difficulty Paying Gas/Electric Bills: No Difficulty Paying for Meds: No Currently Unemployed: No Education: Bachelor's Degree Difficulty w/ Childcare or Family Care: No Spiritual care concerns: No Anes - Eval Final PreProcedure Day of Procedure 09/18/22 18:14 Patient weight: obese Heart: regular rate and rhythm Lungs: clear to auscultation Neurological: alert and oriented ASA classification: III Emergent: no Anesthetic plan: proceed Anesthesia type and monitoring: regional epidural and standard monitoring Results Review: All pre-operative results and documents have been reviewed as part of the pre-operative evaluation.
[2022-09-18 20:46] LABS: Glucose Point of Care 116 mg/dl (65-105)
[2022-09-19] VITALS (194 sets, daily range): BP systolic 92–140; BP diastolic 49–104; PULSE 62–267; RESP 16–18; TEMP 36.3–37.3; O2SAT 87–100
[2022-09-19 01:02] LABS: Glucose Point of Care 96 mg/dl (65-105)
[2022-09-19 05:15] LABS: Glucose Point of Care 71 mg/dl (65-105)
[2022-09-19] MEDS: OXYTOCIN 30 UNITS/NS 500 ML 30 UNITS/500 ML BAG IV CONT (05:38)
[2022-09-19] MEDS: LACTATED RINGERS 1,000 ML 125 ML IV CONT ×3 (05:39→15:19)
[2022-09-19] MEDS: NIFEdipine 30 MG TAB.ER.24 PO (07:15)
--- NOTE | 2022-09-19 08:54 | WPDOBADMIT ---
Obstetrics - Admit Note Admission Note: record reviewed. Additions to the history and/or subsequent changes in the physical findings follow. 32 y/o at 39 1/7 weeks here for induction of labor. Cervidil last night, has been withdrawn. Type 2 DM, with good glycemic control. CHTN with good bp control. GBS neg. AVSS NST reactive TOCO: rare contractions ABD soft, nontender, gravid, vertex EXT nontender Cervix 2/50/-2. AROM with clear fluid. IUPC placed. Vertex. A: IUP at term with Type 2 DM, CHTN, here for induction. P: Oxytocin. Monitor bp and glucose. Anticipate .
[2022-09-19 08:59] LABS: Glucose Point of Care 145 mg/dl (65-105)
[2022-09-19 09:58] LABS: Rapid Plasma Reagin Non-Reactive (NonReactive)
[2022-09-19 11:03] LABS: Glucose Point of Care 85 mg/dl (65-105)
--- NOTE | 2022-09-19 12:30 | PM.OBPNLAB ---
Pain Control Date/time seen: 09/19/22 12:30 Comments: Feeling more contractions. Pelvic Exam Dilation (cm): 4 Effacement (%): 50 station: -2 Contractions Contraction frequency: 3 Status status: Category l Assessment and Plan Pitocin rate (mU/min): 16 Plan: continuous present management
[2022-09-19 15:21] LABS: Glucose Point of Care 95 mg/dl (65-105)
--- NOTE | 2022-09-19 16:22 | PM.OBPNLAB ---
Pain Control Date/time seen: 09/19/22 16:22 Comments: Comfortable with epidural Pelvic Exam Dilation (cm): 5 Effacement (%): 50 station: -2 Contractions Contraction frequency: 3 Contraction pattern: Regular Status status: Category l Assessment and Plan Pitocin rate (mU/min): 18 Plan: continuous present management
[2022-09-19] MEDS: ACETAMINOPHEN 500 MG TABLET 1000 MG PO (18:40)
[2022-09-19 18:56] LABS: Glucose Point of Care 85 mg/dl (65-105)
--- NOTE | 2022-09-19 20:04 | PM.OBPNLAB ---
Pain Control Date/time seen: 09/19/22 20:04 Comments: Comfortable with epidural. Pelvic Exam Dilation (cm): 9 Effacement (%): 90 station: +1 Contractions Contraction frequency: 2 Contraction pattern: Regular Status status: Category ll Assessment and Plan Comments: Attempt pushing
--- NOTE | 2022-09-19 20:43 | P.PCNOB_ITS ---
OB - Delivery Note Procedure Delivery date: 09/19/22 Procedure: Induction of labor with Events: Chronic Hypertension and Diabetes Mellitus Induction method: Per Cervidil Protocol Delivery augmentation: Rupture of Membranes and Pitocin Delivery monitor: External FHT, External Uterine and Internal Uterine Route of delivery: Laceration Description: Perineal - 1st Degree Delivery repair: vicryl (3-0) Specimen: Yes (Cord blood, placenta) Quantitative Blood Loss (ml): 330 Anesthesia type: Epidural Disposition: PACU Complications: Shoulder dystocia Narrative: 32 y/o at 39 1/7 weeks gestation who presented to the hospital for induction of labor. Cervidil was placed overnight, then withdrawn the following morning. Oxytocin was administered intravenously. Amniotomy was performed with return of clear fluid. She received an epidural for pain control. Accuchecks remained normal during labor. Her labor progressed and her cervix dilated completely. She pushed with good effort and delivered the infant's head to the perineum. At this point a shoulder dystocia was diagnosed. She was told to s top pushing. Fundal pressure was strictly avoided, as was traction on the head. Markie maneuver was employed. The posterior shoulder was able to be grasped. A counterclockwise corkscrew was attempted unsuccessfully, followed by a clockwise corkscrew. The posterior arm was then able to be delivered and the anterior shoulder delivered easily, followed by the body. The nose and mouth w ere bulb suctioned. After a delay, the cord was clamped and cut. The was handed off the field. Cord blood was collected. The placenta delivered spontaneously and was grossly normal in appearance. The usual 3 vessel cord was noted. A first degree midline perineal laceration was sustained. This was reapproximated using 3 0 Vicryl in interrupted figure of eight fashion. Excellent hemostasis resulted as did excellent reapproximation of the normal anatomy. Needle and instrument counts were correct. The patient was taken to recovery room in stable condition. The infant went to the nursery in stable condition. I was present and scrubbed for the entire delivery. [place] Baby Date of : 09/19/22 Time of : 20:18 Weeks of gestation at delivery: 39 Infant gender: Male Weight (pounds): 9 Weight (ounces): 10 presentation: vertex position: Right Occiput Anterior Placenta delivery description: Spontaneous and Normal Configuration Cord Vessel Description: 3 Vessels score one minute: 8 score five minutes: 9
--- NOTE | 2022-09-19 20:48 | PM.OBDSVD ---
DS: Admitting Diagnosis Discharge Date 09/21/22 Admitting Diagnosis IUP at 39 1/7 weeks Chronic hypertension Type 2 DM DS: Discharge Diagnosis Discharge Diagnosis (1) (normal spontaneous vaginal delivery): Code(s): O80 - Encounter for full-term uncomplicated delivery Status: Acute (2) Diabetes in : Code(s): O24.919 - Unspecified diabetes mellitus in , unspecified trimester Status: Acute (3) Chronic hypertension affecting : Code(s): O10.919 - Unspecified pre-existing hypertension complicating , unspecified trimester Status: Acute OB - DS: Summary OB Procedures : NST OB Procedures Intrapartum: Spontaneous Vag Delivery OB Procedures: : None Time Spent with Patient Time attestation: Total time spent providing and/or coordinating discharge services: DS: Data Data Completed and Pending Labs on day of discharge: Labs from last 24 hours 09/19/22 09/19/22 09/19/22 18:43 15:15 10:55 POC Capillary Glucose 85 95 85 RPR 09/19/22 09/19/22 09/19/22 08:55 04:53 00:59 POC Capillary Glucose 145 H 71 96 RPR 09/18/22 16:15 POC Capillary Glucose RPR Non-reactive Discharge Plan Discharge Attending physician on discharge: Sukhdev Gutierrez Consulting providers: Maite Abad; Yajaira Duran Discharging Clinician: Sukhdev Gutierrez Patient Disposition: Home, Self-Care Activity: pelvic rest Diet: diabetic Discharge Instructions: Call or return if temperature above 100.4? F, increased abdominal pain, increased vaginal bleeding or any new problems. Submit accucheck 1x daily for a few days (Do a fasting and postprandial for a few days and report MD office) Education: Mom and Baby Guide Given to: Mother Follow-Up: Call your delivering provider's office for an appointment to be seen in: 6 Weeks [facility]. Appointment Date/Time: September 23, 2022 at 2:30 pm What to expect at your follow-up visit: Physical Assessment Call [phone] if you are unable to keep your appointment time. BREAST CARE: * Wear a snug supportive bra. * For engorgement discomfort: Breast Feeding/Pumping: * Apply warm moist washcloths * Express milk as needed to relieve engorgement * Wear loose clothing Bottle Feeding: * May apply ice packs * For sore nipples: * Identify correct latch-on/Flange size * Apply warm moist washcloths before and after nursing * Air dry nipples after nursing * May apply Lansinoh cream to nipples EPISIOTOMY/PERINEAL CARE: * Until bleeding stops, use your jose l bottle after urinating * Change your pad frequently throughout the day * You may take sitz baths several times a day (fill your bathtub with warm water and soak for 20 minutes.) Do NOT bathe in the water * No tub baths until seen by your physician - You may shower ACTIVITY: * Rest as much as possible. * Do not exercise or lift anything heavier than your baby (such as laundry or other children.) * Avoid stairs or driving as much as possible. * Do not put anything into the vagina. No douching, tampons, or sexual activity until seen by physician. NOTIFY PHYSICIAN IF YOU HAVE ANY QUESTIONS OR IF ANY OF THE FOLLOWING SYMPTOMS OCCUR: * If your episiotomy becomes red, swollen, or more painful than what you have experienced in the hospital. * If your vaginal bleeding becomes foul smelling. * If your vaginal bleeding becomes more heavy than a period or if your bleeding changes from pink to bright red. However, you may pass an occasional walnut-sized clot once or twice for the first week . * If you experience a sharp, shooting pain in you calves. * If you discover a hard, reddened area on your breast or if you experience flu-like symptoms. DIET:
[2022-09-19] MEDS: IBUPROFEN 600 MG TABLET PO (20:50)
[2022-09-19] MEDS: OXYTOCIN 30 UNITS/NS 500 ML 30 UNITS/500 ML BAG 125 UNITS IV CONT (20:50)
[2022-09-19] MEDS: miSOPROStol 200 MCG TABLET 800 MCG RECTAL (21:50)
[2022-09-19] MEDS: WITCH HAZEL 40 PADS 1 PAD TOPICAL (22:52)
[2022-09-19] MEDS: BENZOCAINE 20% AER SPR (*SP) 56 GM CAN 1 SPRAY TOPICAL (22:53)
--- NOTE | 2022-09-19 23:10 | OBPPTRN ---
Patient transferred to post room #287 via wheelchair. Support person present. Oriented to unit, room, information board, rooming in, admission packet and security measures. Patient verbalizes understanding. with patient.
[2022-09-20] MEDS: IBUPROFEN 600 MG TABLET PO ×2 (03:58→10:51)
[2022-09-20 04:51] LABS: Hematocrit 31.5 % (37.0-47.0); Hemoglobin 10.5 g/dL (12.0-15.0)
[2022-09-20 05:21] VITALS: BP 129/69; PULSE 79; RESP 16; TEMP 36.4; O2SAT 98
[2022-09-20 08:30] VITALS: BP 127/72; PULSE 79; RESP 18; TEMP 36.3; O2SAT 100
--- NOTE | 2022-09-20 08:53 | PM.OBPNVD ---
OB - PN: Subj Subjective Date/time seen: 09/20/22 08:53 Narrative: Pain OK. Would like circumcision for son. OB - PN: Obj Data Labs 09/20/22 04:01 09/18/22 16:15 Labs: Laboratory Results - last 24 hr 09/18/22 09/19/22 09/19/22 16:15 08:55 10:55 Hgb Hct POC Capillary Glucose 145 H 85 RPR Non-reactive 09/19/22 09/19/22 09/20/22 15:15 18:43 04:01 Hgb 10.5 L Hct 31.5 L POC Capillary Glucose 95 85 RPR OB - PN A/P Plan day: 1 Comments: A: PPD#1, doing well. BP normal. P: Check accuchecks fasting and 1h pp. Continue Procardia XL 30 mg daily. We reviewed the shoulder dystocia and its management. Reviewed circumcision. Plan home tomorrow. Exam Psych: Other: AVSS ABD soft, nontender, fundus firm EXT nontender
[2022-09-20] MEDS: DOCUSATE SODIUM 100 MG CAPSULE PO (09:06)
[2022-09-20] MEDS: MULTIVIT/MIN/PREN/FOL AC/IRON TABLET 1 TAB PO (09:06)
[2022-09-20] MEDS: NIFEdipine 30 MG TAB.ER.24 PO (09:07)
[2022-09-20 09:12] LABS: Glucose Point of Care 145 mg/dl (65-105)
[2022-09-20 10:29] LABS: Glucose Point of Care 116 mg/dl (65-105)
--- NOTE | 2022-09-20 12:44 | WPDANLDPN2 ---
Anes-Prog Note L&D Date/Time: 09/20/22 12:44 Neuro status: Neuro function grossly intact. Cardiovascular status: normal Respiratory status: normal Airway patency: baseline Mental status: baseline Post-Op hydration status: normal Vital Signs: Last Vital Signs Temp 36.3 C L 09/20/22 08:30 Pulse 79 09/20/22 08:30 Resp 18 09/20/22 08:30 BP 127/72 09/20/22 08:30 Pulse Ox 100 09/20/22 08:30 O2 Del Method Room Air 09/19/22 23:10 Pain score (VAS): 0 I/O: Intake & Output 09/19/22 09/20/22 09/20/22 23:59 07:59 15:59 Intake Total 1500 Output Total 330 Balance 1170 Post-procedural complaints: none Patient feedback: Patient satisfied with anesthetic care.
[2022-09-20 12:45] VITALS: BP 120/74; PULSE 69; RESP 18; TEMP 36.2; O2SAT 98
[2022-09-20 13:55] LABS: Glucose Point of Care 125 mg/dl (65-105)
[2022-09-20] MEDS: TOBRAMYCIN SULFATE 0.3% OPHTH SOLN 5 ML 1 DROP EACH EYE (18:45)
[2022-09-20 20:10] VITALS: BP 125/73; PULSE 65; RESP 16; TEMP 36.2; O2SAT 100
[2022-09-20 20:20] LABS: Glucose Point of Care 120 mg/dl (65-105)
[2022-09-21] MEDS: IBUPROFEN 600 MG TABLET PO (04:00)
[2022-09-21 07:02] LABS: Glucose Point of Care 115 mg/dl (65-105)
[2022-09-21] MEDS: NIFEdipine 30 MG TAB.ER.24 PO (07:21)
[2022-09-21] MEDS: DOCUSATE SODIUM 100 MG CAPSULE PO (07:21)
[2022-09-21] MEDS: MULTIVIT/MIN/PREN/FOL AC/IRON TABLET 1 TAB PO (07:21)
[2022-09-21 08:00] VITALS: BP 121/73; PULSE 64; RESP 16; TEMP 36.3; O2SAT 100
[2022-09-21 10:25] LABS: Glucose Point of Care 113 mg/dl (65-105)
--- NOTE | 2022-09-21 12:09 | PC.NURSE ---
Patient encouraged to view the discharge video Mother & Baby Care, The First Two Weeks online. Patient was given the opportunity and encouraged to ask questions with discharge instructions. Patient verbalized understanding of information shared and has been given the mother/baby guide for home reference.
[2022-09-23 14:52] VITALS: BP 131/72; PULSE 72; RESP 18; TEMP 36.7; O2SAT 100
== END 2022-09-21 12:35 | disposition home or self-care (01) | DRG 806 ==
LOC: ANHLDR 09-19 20:50 → ANHOB2 09-19 23:44
PROVIDERS: Admitting Provider Obstetrics & Gynecology; Visit Provider Obstetrics & Gynecology
DX: O24.12 Pre-existing type 2 diabetes mellitus, in childbirth (principal); O10.92 Unspecified pre-existing hypertension complicating childbirth; Z37.0 Single live birth; O70.0 First degree perineal laceration during delivery; O66.0 Obstructed labor due to shoulder dystocia; Z3A.39 39 weeks gestation of pregnancy
CPT/HCPCS: 36415; 80053; 82948; 84550; 85014; 85018; 85025; 86592; 86850; 86900; 86901; 88307; A9270; J2590; J2795; J7120

== ENCOUNTER 2024-09-07 17:34 | Emergency (ER) | payer BC, SELFPAY ==
--- NOTE | 2024-09-07 17:36 | ED.URI ---
HPI - URI/Sore Throat General Chief Complaint: Upper Respiratory Infection Stated Complaint: cough and congestion Time Seen by Provider: 09/07/24 17:36 Source: patient Mode of arrival: ambulatory Limitations: no limitations History of Present Illness HPI Narrative: Patient is a 34-year-old female who presents with 4 days of sore throat, congestion, fever with highest being 100.4, cough. Body aches and chills started today along with sore throat read worse. Her kids are currently being treated for strep throat. Patient is 16 weeks and her Ob sentence a Z-Jose Carlos for her yesterday which she started. Patient was told to come get swabbed for strep throat and have antibiotic changed if positive. Denies any nausea, vomiting, diarrhea. Has had negative COVID test at home Related Data Home Medications Medication Instructions Recorded Confirmed Last Taken Type cholecalciferol (vitamin D3) 50 50 mcg PO DAILY 11/13/22 09/07/24 Unknown History mcg (2,000 unit) capsule multivitamin (Daily Multi-Vitamin 1 tablet PO DAILY 11/13/22 09/07/24 Unknown History tablet) sertraline 50 mg tablet 50 mg PO DAILY 10/31/23 09/07/24 Unknown History azithromycin 250 mg tablet mg 09/07/24 Unknown History (Zithromax Z-Jose Carlos) glyburide 5 mg tablet mg 09/07/24 Unknown History insulin glargine 100 unit/mL (3 unit subcut 09/07/24 Unknown History mL) subcutaneous pen (Lantus Solostar U-100 Insulin) lancets (Microlet Lancet) 09/07/24 09/07/24 Unknown History Allergies Allergy/AdvReac Type Severity Reaction Status Date / Time No Known Allergies Allergy Verified 09/07/24 17:40 Review of Systems Review of Systems: All systems reviewed & are unremarkable except as noted in HPI and below Constitutional: Constitutional: Reports chills, Denies fatigue, Reports fever(s), Denies headache(s), Denies malaise and Denies weakness Eyes: Eyes: Denies blurry vision, Denies itchy eyes and Denies loss of vision ENT: Denies otalgia, Denies headache(s), Reports nasal congestion, Denies sinus pain and Reports sore throat Cardiovascular: Cardiovascular: Denies chest pain, Denies irregular heart rhythm and Denies dyspnea Respiratory: Respiratory: Reports cough and Denies dyspnea Gastrointestinal: Gastrointestinal: Denies abdominal pain, Denies diarrhea, Denies nausea and Denies vomiting Musculoskeletal: Musculoskeletal: Denies back pain, Reports myalgias and Denies arthralgias Integumentary/Breasts: Skin/Breast: Denies pruritus and Denies rash Neurologic: Denies headache(s), Denies loss of vision and Denies weakness Psychiatric: Psychiatric: Reports no additional psychiatric complaints Endocrine: Endocrine: Denies fatigue Allergic/Immunologic: Allergic/Immunologic: Denies itchy eyes PMFSH Past Medical History Medical History Hospital discharge follow-up Obesity Abdominal pain Encounter to establish care with new doctor Weight loss counseling, encounter for Diabetes type 2, controlled Anemia Obesity Gestational diabetes Surgical History Surgical History Hx of tonsillectomy Family History Family History Father Hypertension Renal cell carcinoma Mother Hypertension Social History Social History Social History: 05/27/24 very confident with medical forms Smoking status: Never smoker Alcohol intake: current Substance use: never Do You Feel Safe in your Home?: Yes Lack of Transportation: No Lack of Food: Never True Current Housing: I Have Housing Concerned About Future Housing: No Difficulty Paying Gas/Electric Bills: No Difficulty Paying for Meds: No Currently Unemployed: No Education: Bachelor's Degree Difficulty w/ Childcare or Family Care: No Living arrangements: with family Occupation/Education: occupation 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 There is no relevant family history pertinent to the presenting complaint. Exam Const: General: cooperative, healthy appearing, comfortable, no acute distress and well nourished Nutritional Appearance: well nourished Orientation/consciousness: patient oriented x3 Limitations: no limitations HENMT: Head: normal to inspection, normocephalic and atraumatic Ears: hearing grossly normal bilaterally, external ears normal, TM's normal bilaterally, EAC's normal and no periauricular adenopathy Face/Nose/Sinus: Normal external nose present, Abnormal mucous membranes and turbinates present erythematous bilateral and diffuse, normal facial exam, sinuses nontender and face symmetric Face and sinus: normal facial exam, sinuses nontender and face symmetric Mouth: Yes Normal oral and palatal mucosa present, Yes lip normal, Yes tongue normal, Yes Normal salivary glands and ducts present, Yes oropharynx normal and Yes moist mucous membranes Teeth and gingiva: dentition normal Throat: posterior oropharynx normal, uvula midline and tonsils absent Eyes: General: appearance normal, both eyes and all related structures Alignment and Position: alignment normal and position normal Periorbital: periorbital findings normal Eyelids: eyelids normal Pupils: Equal, round and reactive pupils present Neck: Neck: normal visual inspection, full ROM, no lymphadenopathy and supple Chest: Chest palpation & inspection: normal inspection of the chest and normal palpation of entire chest wall Resp: Effort & Inspection: normal respiratory effort and able to speak in complete sentences Auscultation: clear to auscultation bilaterally, no crackles, no rales, no rhonchi and no wheezes Cardio: Rate: regular rate Rhythm: regular rhythm Heart sounds: S1 normal heart sound present and S2 normal heart sound present GI: Inspection: normal to inspection Skin: General skin exam: normal color and no rashes or lesions noted Neuro: General: patient oriented x3 and moves all extremities Cranial nerves: Yes Equal, round and reactive pupils present Speech: normal speech Gait exam (Neuro): Normal gait present Extrem: General: normal to inspection, full ROM and no edema Psych: Appearance: grossly normal and well kempt Mental Status: mental status grossly normal Speech and movement: Normal speech and movement present Affect: normal affect Attitude: cooperative Thought process: Normal thought process present Course Course Emergency Course: Discharge instructions reviewed with patient, as well as provided in writing per nursing staff. The instructions also include specific and strict return/GO TO THE ER as well as f/u information. All questions have been answered, and the patient deny any further questions with discharge and discharge plan. Portions of this record may have been created with voice recognition software Level of Care: Express Care Visit Vital Signs Vital signs: Vital Signs Temperature 37.2 C 09/07/24 17:49 Pulse Rate 84 09/07/24 17:49 Respiratory Rate 17 09/07/24 17:49 Blood Pressure 123/67 09/07/24 17:49 Pulse Oximetry 98 09/07/24 17:49 Oxygen Delivery Room Air 09/07/24 17:49 Temperature 37.2 C 09/07/24 17:49 Pulse Rate 84 09/07/24 17:49 Respiratory Rate 17 09/07/24 17:49 Blood Pressure 123/67 09/07/24 17:49 Pulse Oximetry 98 09/07/24 17:49 Oxygen Delivery Room Air 09/07/24 17:49 Reviewed MDM - URI/Sore Throat MDM Narrative Medical decision making narrative: Negative for strep throat will send for culture. Pt well hydrated appearing, in no respiratory distress, hemodynamically stable. Recommend supportive care. The patient is stable at time of discharge the clinical impression was discussed and the patient was given the opportunity to ask questions, which were addressed as completely as possible given the information available at present. Anticipatory guidance and return to care precautions were discussed and the importance of primary care follow-up was stressed and encouraged. The patient voiced understanding of the plan, indications to return, and the need for follow-up. Exam findings show no acute concerns or changes Patient is appropriate for outpatient treatment and follow-up. Differential diagnosis considered: Cisneros virus, strep pharyngitis, allergic rhinitis, upper respiratory tract infection, sinusitis, rhinosinusitis, nasopharyngitis. viral pharyngitis, otitis media, otitis externa, otitis effusion, foreign body, cerumen impaction, viral syndrome, and influenza. Medical Records Attestation: I reviewed the patient's medical records. Lab Data Attestation: I reviewed the patient's lab results. Lab results narrative: Patient was negative for strep throat Discharge Plan Discharge Clinical Impression: Upper respiratory infection Qualifiers: URI type: acute nasopharyngitis (common cold) Qualified Code(s): J00 - Acute nasopharyngitis [common cold] Patient Disposition: Home Condition: Stable Instructions: Upper Respiratory Infection (ED) Additional Instructions: Your rapid strep swab was negative today at [facility]. A throat culture will be sent to the laboratory for further testing. If the test is positive, you will receive a phone call within 48 hours and an appropriate antibiotic will be initiated at that time. Your symptoms are likely due to a viral illness, which is not treated with antibiotics. Viral symptoms can be present for up to a few weeks. -For pain/fever, you may take: Tylenol 650-1000mg by mouth every 4-6 hours. Do not exceed 4000mg in 24 hours. Advil (Ibuprofen) 600 mg by mouth every 6 hours. Do not exceed 2400mg in 24 hours. 8 AM: Tylenol 11 AM: Ibuprofen 2 PM: Tylenol 5 PM: Ibuprofen 8 PM: Tylenol 11 PM: Ibuprofen 2 AM: Tylenol 5 AM: Ibuprofen -Antihistamine medication such as Benadryl/Zyrtec at night and Claritin/Renetta during the day can help improve symptoms. -Use Flonase twice a day for 5 days then daily to help reduce the inflammation and dry up your sinuses. -You can also use Sudafed behind the pharmacy counter(12 or 24 hour). Be sure to drink plenty of water with these medications at least 8 ounces with every dose and it is important to drink 8 to 10 glasses of water per day. Water is a natural decongestant -Eat and drink things that are easy to swallow, like tea or soup, or popsicles. -Oral rinses such as: Salt water gargles and/or may use topical anesthetic (eg. Chloraseptic spray) or lozenges to relieve dryness or throat pain). -Frequent hand washing or hand stereo plotter operator is one of the best ways to prevent spread of infection. -Using a vaporizer or humidifier at night will also help thin secretions and help with coughing up phlegm. Call your Primary Care Doctor and make a follow-up appointment in 3 days. If your cough worsens, you develop a fever greater than 103, you develop shaking chills, a fast heartbeat, trouble breathing and/or feel you are are breathing much faster than usual, call your Primary Care Doctor or go to the ER. Patient Language: Greek Prescriptions: New fluticasone propionate [Flonase Allergy Relief] 50 mcg/actuation spray,suspension 1 spray intranasal DAILY Qty: 16 0RF Rx Instructions: administer into each nostril No Action azithromycin [Zithromax Z-Jose Carlos] 250 mg tablet glyburide 5 mg tablet (DME) lancets [Microlet Lancet] Misc MISCELLANEOUS insulin glargine [Lantus Solostar U-100 Insulin] 100 unit/mL (3 mL) insulin pen SUBCUT sertraline 50 mg tablet 50 mg PO DAILY cholecalciferol (vitamin D3) 50 mcg (2,000 unit) capsule 50 mcg PO DAILY multivitamin [Daily Multi-Vitamin] Tablet 1 tablet PO DAILY Mounjaro 12.5 mg/0.5 mL pen injector 12.5 mg subcut WEEKLY Qty: 2 0RF metformin 500 mg tablet 500 mg PO DAILY Qty: 90 1RF nifedipine 30 mg tablet extended release 24hr 30 mg PO DAILY Qty: 90 1RF Follow-up/Referrals: Cecily Mendoza APRN [Primary Care Provider] - 3 Days Time of Disposition: 18:08
--- OUTSIDE RECORDS SUMMARY | 2024-09-07 17:37 | XMS_ITS | Referral Summary ---
Author Organization [facility] Address [address] [place] [id number] Phone Care Team Providers Care Welfare Analyst Name Role Phone ClemonsGavino paradaelle Tiara CIGARETTE SELLER Primary Care Provider + Allergies No known active allergies Medications sertraline (ZOLOFT) 50 mg tablet Take 1 tablet (50 mg total) by mouth daily 4 Active Mounjaro 15 mg/0.5 mL pen injector INJECT 1 SYRINGE SUBCUTANEOUSLY ONCE A WEEK 4 Active NIFEdipine XL 30 mg 24 hr tablet Take 1 tablet (30 mg total) by mouth daily 4 Active Active Problems Problem Noted Date Diagnosed Date Myopia of both eyes 05/04/2024 Assessment & Plan (05/04/2024 9:24 AM INTERACTIVE MEDIA PROJECT MANAGER): Referral from Dr. Goldstein/ Dr. Trejo [facility] Good ocular health Lattice degeneration OS Elevated IOP's, Normal ONH LASIK OU with femtosecond laser flap creation Discussed risks of LASIK surgery. Discussed risk of dryness, glare and halo and flap complications. Discussed risk of enhancement surgery and no guarantee of 20/20 vision. Discussed risk of keratectasia. Discussed presbyopia and need for reading glasses. I gave patient ample time to ask questions and reviewed all concerns. Wore CL's in today, Return for repeat MR and Topos on day of surgery. Same day exam/surgery LASIK OU [place] [facility] House Discussed lattice and symptoms of RD Social History Tobacco Use Types Packs/Day Years Used Date Smoking Tobacco: Never Smokeless Tobacco: Never Tobacco Cessation:Counseling Given: Not Answered Comments Unknown Sex and Gender Information Value Date Recorded Sex Assigned at Not on file Legal Sex Female 7:20 AM INTERACTIVE MEDIA PROJECT MANAGER Gender Identity Female 05/03/2024 11:01 AM INTERACTIVE MEDIA PROJECT MANAGER Sexual Orientation Straight 05/03/2024 11 :01 AM INTERACTIVE MEDIA PROJECT MANAGER Plan of Treatment Not on file Insurance [employer] Care Teams Welfare Analyst Relationship Specialty Start Date End Date Cecily Mendoza NP PCP - General Nurse Practitioner 05/04/24
--- OUTSIDE RECORDS SUMMARY | 2024-09-07 17:37 | XMS_ITS | Clinical Summary ---
Author Organization [facility] Address [address] [place] [phone] Phone Care Team Providers Care Chauffeur Motorbus Name Role Phone OcalaGavino paradaelle Tiara WATERSHED MANAGER Primary Care Provider + Allergies No known [...] 05/04/2024 Assessment & Plan (05/04/2024 9:24 AM EGG BREAKING MACHINE OPERATOR): Referral from Dr. Goldstein/ Dr. Trejo [facility] Good ocular health Lattice degeneration OS Elevated [...] of surgery. Same day exam/surgery LASIK OU [place] [facility] In House Discussed lattice and symptoms of RD Social History Tobacco Use Types Packs/Day Years Used Date Smoking Tobacco: Never Smokeless Tobacco: Never Tobacco Cessation:Counseling Given: Not Answered Comments Unknown Sex and Gender Information Value Date Recorded Sex Assigned at Not on file Legal Sex Female 7:20 AM EGG BREAKING MACHINE OPERATOR Gender Identity Female 05/03/2024 11:01 AM EGG BREAKING MACHINE OPERATOR Sexual Orientation Straight 05/03/2024 11 :01 AM EGG BREAKING MACHINE OPERATOR Obstetrics History Plan of Treatment Health Maintenance Due Date Last Done Comments Cervical Cancer Screening 1989 Depression Screening 1989 Hepatitis C Screening 1989 Varicella Vaccines (1 of 2 - 13+ 2-dose series) 2002 Hepatitis B Screening 2007 Regular Well Visit/Exam 18-64 2007 Covid-19 Vaccine ( - season) 2023 04/26/2021, 06/23/2020 Influenza Vaccine (Season Ended) 2024 02/19/2023, 03/11/2022, 03/12/2021, Additional history exists DTaP/Tdap/Td Vaccine (3 - Td or Tdap) 07/11/2032 07/11/2022, 07/13/2019 HPV Vaccines Aged Out No longer eligi ble based on patient's age to complete this topic Pneumococcal vaccine <65 Aged Out No longer eligible based on patient's age to complete this topic Insurance [employer] Care Teams Chauffeur Motorbus Relationship Specialty Start Date End Date Cecily Mendoza NP PCP - General Nurse Practitioner 05/04/24
--- OUTSIDE RECORDS SUMMARY | 2024-09-07 17:37 | XMS_ITS | Clinical Summary ---
Author Organization [email or web address] Address [address] [place] [address] Care Team Providers Care Management Scientist Name Role Phone Eliu Galloway MD Primary Care Provider Source Comments [email or web address],non-owned Affiliates and Associated Physician Practices is amultiple site organization consisting of ambulatory clinics and hospital sitesin [place], [place], [place] and [place]. This disclosure is being madepursuant to the Care Everywhere program and may not contain all information available regarding this patient. Last updated 18.City Notes [email or web address] Allergies No known active allergies Medications * Be aware that medications may not be up to date on this document. Alwaysverify current medications with the patient. NIFEdipine CR 24hr (Adalat CC) 30 MG tabletIndicati ons:Hypertensi on Take 1 (one) tablet by mouth once daily Take on an empty stomach. Reasons: High Blood Pressure Active sertraline (Zoloft) 50 MG tablet Take 1 (one) tablet by mouth once daily Active Vit-Fe Fumarate-FA ( vitamin) 28-0.8 MG tabletIndicati ons: Take 1 (one) tablet by mouth once daily Reasons: Active insulin glargine (Lantus/Semgle e) 100 units/mL pen Inject 10 units at bedtime. Take dosages approximately the same time daily. Increase dose as directed due to increasing insulin requirements during . Max total daily dose = 50u 15 mL 5 5 Active insulin pen needle (Novofine) 32G X 6 MM MISCIndication s:Pre-existing type 2 diabetes mellitus during in first trimester (HCC) 1 (one) Each by Injection route once daily 100 Each 5 5 Active Glucagon (Baqsimi One Pack) 3 MG/DOSE POWD [place] 1 Each into the nose as needed For emergency use only 1 Each 5 Active blood glucose (JOHN CONTOUR NEXT TEST) test stripIndicatio ns:Pre-existin g type 2 diabetes mellitus during in first trimester ([facility]) Use 1 (one) strip 4 times daily 125 strip 5 5 Active lancetsIndicat ions:Pre-exist ing type 2 diabetes mellitus during in first trimester ([facility]) Use 1 (one) Each once daily 100 Each 11 5 Active glyBURIDE (Diabeta; Micronase) 5 MG tabletIndicati ons:Type 2 Diabetes Mellitus Take 1 (one) tablet by mouth daily with dinner Take with a meal. Reasons: Type 2 Diabetes Active Active Problems Problem Noted Date Diagnosed Date Advanced maternal age in multigravida, first tri mester 08/02/2024 Pre-existing type 2 diabetes mellitus during in first trimester 08/02/2024 Hypertension affecting in first trimes ter 08/02/2024 11 weeks gestation of 08/02/2024 Estimated Date of Delivery Comme nts Yes 02/18/2025 Based on last me nstrual period of 05/14/2024 Encounters Date Type Department Care Team Description 08/04/2024 1:39 PM CDT - 08/04/2024 11:59 PM CDT Hospital Encounter [facility] Maternal & Care [address] [place] [id number] Dimas Barnes MD Discharge Disposition: Home or Self Care 08/04/2024 1:00 PM CDT - 08/04/2024 1:38 PM CDT Hospital Encounter [facility] Maternal & Care [address] [place] [address] Dimas Barnes MD Discharge Disposition: Home or Self Care from Last 3 Months Family History Medical History Relation Name Comments Diabetes - Type 2 Father Hypertension Father Diabetes - Type 2 Maternal Grandfather Diabetes - Type 2 Maternal Grandmother Hypertension Mother Relation Name Status Comments Father Maternal Grandfather Maternal Grandmother Mother Social History Tobacco Use Types Packs/Day Years Used Date Smoking Tobacco: Never Smokeless Tobacco: Never Tobacco Cessation:Counseling Given: Not Answered Alcohol Use Standard Drinks/Week Comments Not Currently 0 (1 standard drink = 0.6 oz pur e alcohol) Estimated Date of Delivery Comme nts Yes 02/18/2025 Based on last me nstrual period of 05/14/2024 Sex and Gender Information Value Date Recorded Sex Assigned at Not on file Legal Sex Female 8:55 AM CDT Gender Identity Not on file Sexual Orientation Not on file Last Filed Vital Signs Vital Sign Reading Time Taken Comments Blood Pressure 124/67 08/04/2024 1:04 PM CDT Pulse 76 08/04/2024 1:04 PM CDT Temperature - - Respiratory Rate - - Oxygen Saturation - - Inhaled Oxygen Concentration - - Weight 103.8 kg (228 lb 12.8 oz) 08/04/2024 1:04 PM CDT Height 170.2 cm (5' 7 ) 08/04/2024 1:04 PM CDT Body Mass Index 35.84 08/04/2024 1:04 PM CDT Plan of Treatment Upcoming Encounters Date Type Department Care Team (Late st Contact Info) Description 09/08/2024 1:45 PM CDT Hospital Encounter [facility] Maternal & Care [address] [place] [address] Coral Dias MD [address] [place] [address] [address] [place] [address] Health Maintenance Due Date Last Done Comments PAP SMEAR 1989 HIV SCREENING 01/03/2004 HEPATITIS C SCREENING 12/29/2006 DTAP/TDAP/TD VACCINES (1 - Tdap) 01/03/2008 HEPATITIS B VACCINE (1 of 3 - 19+ 3-dose series) 01/03/2008 COVID-19 VACCINE ( - season) 2023 04/26/2021, 06/23/2020 DEPRESSION SCREENING 04/21/2024 INFLUENZA VACCINE (Season Ended) 2024 02/19/2023, 03/11/2022, 03/12/2021, Additional history exists Respiratory Syncytial Virus (RSV) Vaccine Pt: or over 60 yrs (1 - Risk 1-dose series) 12/24/2024 ZOSTER VACCINE (1 of 2) 2039 HIB VACCINE Aged Out No longer eligi ble based on patient's age to complete this topic HPV VACCINE Aged Out No longer eligi ble based on patient's age to complete this topic MENINGOCOCCAL (Group B) VACCINE SHARED DECISION-MAKING Aged Out No longer eligible based on patient's age to complete this topic MENINGOCOCCAL GROUPS A/C/Y/W VACCINE Aged Out No longer eligible based on patient's age to complete this topic PNEUMOCOCCAL VACCINE Aged Out No long er eligible based on patient's age to complete this topic Procedures Procedure Name Priority Date/Time Associated Diagnosis Comments SONOGRAM - COMPLETE Routine 08/04/2024 1 :49 PM CDT 11 weeks gestation of (HCC) Hypertension affecting in first trimester (HCC) Pre-existing type 2 diabetes mellitus during in first trimester (HCC) Advanced maternal age in multigravida, first trimester ([facility]) from Last 3 Months Results * SONOGRAM - COMPLETE (08/04/2024 1:49 PM CDT) Linked Results Indication ======== AMA 35 NIPT being drawn with primary OB Type II DM on glyburide, cHTN on nifedipine, Pre- obesity class I, Anxiety & depression on sertraline History ====== OB History 4. Para 2 [id number] 1. live 2019. Gest. age 39 w + 0 d. Weight 3,572 g. Sex of child: female. Details: 2. miscarriage 2020 3. live 2022. Gest. age 39 w + 5 d. Weight 4,365 g. Sex of child: male. Details: Maternal Assessment Physical Exam Height 170 cm, 5 ft 7 in. Weight 103 kg, 228 lb. Initial weight 98 kg, 216 lb. BMI 35.71 kg/m . Initial BMI 33.83 kg/m . Weight gain 5 kg, 12 lb Method ====== Transabdominal ultrasound. View: Sufficient ========= Marcelino . Number of fetuses: 1 Dating ====== Date Details Gest. age DAMIAN LMP 05/14/2024 11 w + 5 d 02/18/2025 U/S 08/04/2024 based upon CRL 11 w + 5 d 02/18/2025 Assigned dating based on the LMP, selected on 08/04/2024 11 w + 5 d 02/18/2025 General Evaluation Cardiac activity present Amniotic fluid: normal Biometry FHR 160 bpm CRL 50.5 mm 11w 5d 34% [place] NT 1.40 mm Anatomy Face: nasal bone suboptimal. The following structures appear normal: Cranium. Neck. Thorax. Abdominal wall. Stomach. Arms. Legs. The following structures could not be adequately visualized: Heart. Great vessels. Kidneys. Bladder. Spine. Impression ========= * Marcelino IUP at 11 weeks of gestation by stated EDC from LMP & early U/S * Referred to [facility] for obstetrical U/S & request for consult secondary to: Chronic hypertension, on nifedipine Diabetes mellitus Type II, on glyburide * Other relevant clinical diagnoses include: Advanced maternal age (AMA) 35 years at the EDC Pre- obesity Class I, BMI = 33.8 Anxiety & depression, on sertraline Prior complicated by LGA and humeral fracture * Today's ultrasound (U/S) findings: Living marcelino intrauterine fetus [place] rump length (CRL) is normal-range Nuchal translucency (NT) is normal-range Amniotic fluid volume appears normal COUNSELING & RECOMMENDATIONS (PLEASE SEE FULL CONSULT IN EPIC) * In my best medical opinion, I would advise: Today we will discontinue oral DM medications and start insulin Please also refer to the separate Diabetic/Lending Manager consultation report of today Low-dose aspirin (162 mg/day) preeclampsia prophylaxis start at 12 weeks Laboratory evaluation, if not recently done, to be done in OB office: Baseline preeclampsia labs (i.e. CBC, CMP & PCR), repeat PRN change in condition Baseline hemoglobin A1c MS-AFP at 15-18 weeks Initiate daily ambulatory BP monitoring, with appropriate size cuff Target goals for managing CHTN in : The 2018 ACOG PB-203 recommends 120-159/80-109 mmHg Based upon the 2021 CHAP study, ACOG now recommends < 140/90 mmHg Thresholds of BP for which she should notify her OB provider: For trends in SBP >= 140 or DBP >= 90 mmHg For any SBP >= 160 or DBP >= 110 mmHg Follow-up assessment: Early basic anatomy at 16 weeks Comprehensive anatomic survey & cervical length screening at 20 weeks Then U/S for growth & amniotic fluid volume every 4 weeks echocardiogram (for DM) by Pediatric Cardiology at 24 weeks Start 2x-weekly NST and 1x-weekly BPP at 32 weeks Would advise reviewing the G3 delivery note to determine if shoulder dystocia occured Delivery planning (timing, mode, location): too early to determine at present Follow-up ======== Follow-up U/S at 16 weeks Coding ====== Procedures 64954: 1st Trimester 04400: Nuchal Translucency [facility] [employer] PACS Anatomical Region Laterality Modality Other 08/04/2024 1:49 PM CDT Dimas Barnes MD [facility] ORDERABLES Edited Result - Final from Last 3 Months Insurance [employer] Care Teams Management Scientist Relationship Specialty Start Date End Date Eliu Galloway MD [address] [place] [id number] PCP - General 02/14/21
[2024-09-07 17:49] VITALS: BP 123/67; PULSE 84; RESP 17; TEMP 37.2; O2SAT 98
[2024-09-07 18:11] LABS: EDSTREPNEGPOS1 Negative (Negative)
== END 2024-09-07 18:17 | disposition home or self-care (01) ==
PROVIDERS: Emergency Provider Nurse Practitioner Family; PCP Nurse Practitioner Family
DX: O99.512 Diseases of the respiratory system complicating pregnancy, second trimester (principal); J00 Acute nasopharyngitis [common cold]; O24.912 Unspecified diabetes mellitus in pregnancy, second trimester; Z79.84 Long term (current) use of oral hypoglycemic drugs; Z79.85 Long-term (current) use of injectable non-insulin antidiabetic drugs; Z3A.16 16 weeks gestation of pregnancy
CPT/HCPCS: 87081; 87880; 99213; G0463

== ENCOUNTER 2025-01-11 12:18 | Outpatient (CLI) | payer BC, SELFPAY ==
--- OUTSIDE RECORDS SUMMARY | 2025-01-10 08:56 | XMS_ITS | Encounter Summary ---
Author Organization [facility] Address [address] [place] [address] Care Team Providers Care Teacher Vocal Name Role Phone Eliu Galloway MD Primary Care Provider [phone] Reason for Referral * (Routine) - Open Specialty Diagnoses / Procedures Referred By Madison ryan Referred To Contact Diagnoses Advanced maternal age in multigravida, first trimester (HCC) Pre-existing type 2 diabetes mellitus during in first trimester (HCC) Hypertension affecting in first trimester (HCC) 32 weeks gestation of (HCC) Encounter for ultrasound to assess growth (HCC) Encounter for other screening follow-up (HCC) Placenta previa in third trimester (HCC) Procedures Biophysical Profile w LUCIAT Sukhdev Gutierrez MD [address] [address] Phone: tel: fax: Referral ID Status Reason Start Date Expiration Date Visits Re quested Visits Authorized [id number] Open 12/21/2024 12/21/2025 4 4 Reason for Visit * Reason Comments Ultrasound * (Routine) - Open Specialty Diagnoses / Procedures Referred By Madison ryan Referred To Contact Diagnoses Advanced maternal age in multigravida, first trimester (HCC) Pre-existing type 2 diabetes mellitus during in first trimester (HCC) Hypertension affecting in first trimester (HCC) 32 weeks gestation of (HCC) Encounter for ultrasound to assess growth (HCC) Encounter for other screening follow-up (HCC) Placenta previa in third trimester (HCC) Procedures Biophysical Profile w Sukhdev Hernandez MD [address] [address] Phone: tel: fax: Referral ID Status Reason Start Date Expiration Date Visits Re quested Visits Authorized [id number] Open 12/21/2024 12/21/2025 4 4 Encounter Details Date Type Department Care Team (Latest Contact Info) Description 01/10/2025 8:56 AM CDT - 01/10/2025 11:59 PM CDT Hospital Encounter [facility] Maternal & Care [address] [place] [id number] Kirti Bui MD [address] [place] [address] Discharge Disposition: Home or Self Care Social History Tobacco Use Types Packs/Day Years Used Date Smoking Tobacco: Never Smokeless Tobacco: Never Alcohol Use Standard Drinks/Week Comments Not Currently 0 (1 standard drink = 0.6 oz pur e alcohol) Estimated Date of Delivery Comme nts Yes 02/18/2025 Based on last me nstrual period of 05/14/2024 Sex and Gender Information Value Date Recorded Sex Assigned at Not on file Legal Sex Female 8:55 AM CDT Gender Identity Not on file Sexual Orientation Not on file documented as of this encounter Last Filed Vital Signs Vital Sign Reading Time Taken Comments Blood Pressure 128/66 01/10/2025 11:26 AM CDT Pulse 74 01/10/2025 11:26 AM CDT Temperature - - Respiratory Rate - - Oxygen Saturation - - Inhaled Oxygen Concentration - - Weight - - Height - - Body Mass Index - - documented in this encounter Medications at Time of Discharge aspirin EC (Ecotrin) 81 MG tablet Take 2 (two) tablets by mouth once daily blood glucose (JOHN CONTOUR NEXT TEST) test stripIndications :Pre-existing type 2 diabetes mellitus during in first trimester (HCC) Use 1 (one) strip 4 times daily Test blood sugar fasting and 1 hour after breakfast, lunch and dinner. 125 strip 5 12/13/2024 docusate sodium (Colace) 100 MG capsuleIndicatio ns:Constipation Take 1 (one) capsule by mouth once daily Reasons: Constipation Glucagon (Baqsimi One Pack) 3 MG/DOSE POWD [place] 1 Each into the nose as needed For emergency use only 1 Each 08/04/2024 insulin glargine (Lantus/Semglee) 100 units/mL pen Inject 26 units in the morning and 56 units at bedtime. Take dosages approximately 12 hours apart. Increase dose as directed due to increasing insulin requirements during . Max total daily dose = 100u 30 mL 12/01/2024 Insulin Pen Needle (Pen [place]) 32G X 4 MM MISCIndications: Pre-existing type 2 diabetes mellitus during in first trimester ([facility]) Use 1 Each 2 times daily 100 Each 10/06/2024 lancetsIndicatio ns:Pre-existing type 2 diabetes mellitus during in first trimester ([facility]) Use 1 (one) Each once daily 100 Each 12/13/2024 NIFEdipine CR 24hr (Adalat CC) 30 MG tabletIndication s:Hypertension Take 1 (one) tablet by mouth once daily Take on an empty stomach. Reasons: High Blood Pressure Vit-Fe Fumarate-FA ( vitamin) 28-0.8 MG tabletIndication s: Take 1 (one) tablet by mouth once daily Reasons: sertraline (Zoloft) 50 MG tablet Take 1 (one) tablet by mouth once daily documented as of this encounter Progress Notes * Lizbeth Dias RN - 01/10/2025 11:28 AM CDT Patient here today for NST/BPP performed at [place] 34w3d. Patient reports positive movement. Denies cramping, contractions, vaginal bleeding, and leakage of fluid. Patient denies headache, epigastric pain and visual changes. BP 128/66 (BP Location: Left arm, Patient Position: Sitting, BP Cuff Size: Large adult) Pulse 74 Patient states her last OB appt was 01/06 and her next one is scheduled 01/17. Patient and OB plan for delivery between [id number] via section due to complete placenta previa. Patient inquiring about corticosteriods a week prior to delivery for lung maturity. Reports her OB was going to check in with MFM regarding steriods. RN reached out to Dr. Bui remotely regarding patient's question/concern about steriods one week prior to delivery in regards to lung maturity. MFM reports late steriods are controversial. Patient has T2dm so she would not be a good candidate. MFM stated in patient's with T2dm there is not enough evidence to support giving steroids in regards to the risk versus benefits. Notified. Fatuma Disla NP at Dr. Gutierrez's office of MFM recommendations. Patient is scheduled out for twice weekly NST and Weekly BPP's with MFM until delivery. Lizbeth Dias RN 01/10/2025 11:39 AM documented in this encounter Plan of Treatment Upcoming Encounters Date Type Department Care Team (Late st Contact Info) Description 01/14/2025 8:15 AM CDT Hospital Encounter [facility] Maternal & Care [address] [place] [id number] 01/18/2025 7:30 AM CDT Appointment [facility] Maternal & Care [address] [place] [phone] 01/18/2025 8:15 AM CDT Appointment [facility] Maternal & Care [address] [place] [address] 01/21/2025 9:00 AM CDT Appointment [facility] Maternal & Care [address] [place] [address] 01/25/2025 7:30 AM CDT Appointment [facility] Maternal & Care [address] [place] [phone] 01/25/2025 8:15 AM CDT Appointment [facility] Maternal & Care [address] [place] [address] 01/25/2025 9:00 AM CDT Appointment [facility] Maternal & Care [address] [place] [phone] documented as of this encounter Procedures Procedure Name Priority Date/Time Associated Diagnosis Comments BIOPHYSICAL PROFILE W NST Routine 01/10/2025 10:06 AM CDT Advanced maternal age in multigravida, first trimester (HCC) Pre-existing type 2 diabetes mellitus during in first trimester ([facility]) Hypertension affecting in first trimester ([facility]) 32 weeks gestation of ([facility]) Encounter for ultrasound to assess growth ([facility]) Encounter for other screening follow-up ([facility]) Placenta previa in third trimester ([facility]) documented in this encounter Results * Biophysical Profile w NST (01/10/2025 10:06 AM CDT) Linked Results Indication ======== Pre-existing type 2 diabetes mellitus, in Chronic hypertension (CHTN) complicating Maternal obesity complicating , class 1 (BMI 30.0 - 34.9) Advanced maternal age (AMA), multigravida Complete placenta previa NOS or without hemorrhage History ====== OB History 4. Para 2 [id number] 1. live 2019. Gest. age 39 w + 0 d. Weight 3,572 g. Sex of child: female. Details: 2. miscarriage 2020 3. live 2022. Gest. age 39 w + 5 d. Weight 4,365 g. Sex of child: male. Details: Lab Tests Test Date Result NIPT Low risk, Female Maternal Assessment = Physical Exam Height 170 cm, 5 ft 7 in. Weight 118 kg, 260 lb. Initial weight 98 kg, 216 lb. BMI 40.72 kg/m . Initial BMI 33.83 kg/m . Weight gain 20 kg, 44 lb Method ====== Transabdominal ultrasound. View: Sufficient ========= Goel . Number of fetuses: 1 Dating ====== Date Details Gest. age DAMIAN LMP 05/14/2024 34 w + 3 d 02/18/2025 Stated DAMIAN 34 w + 3 d 02/18/2025 Assigned dating based on the LMP, selected on 08/04/2024 34 w + 3 d 02/18/2025 General Evaluation Cardiac activity present. FHR 131 bpm. Presentation: cephalic Placenta: Placental site: left lateral, posterior previa Amniotic Fluid Assessment ===== Amount of AF: normal MVP 6.4 cm. B[place] 22.7 cm. Q1 5.7 cm, Q2 6.4 cm, Q3 5.9 cm, Q4 4.7 cm Biophysical Profile 2: breathing movements 2: Gross body movements 2: tone 2: Amniotic fluid volume NST: reactive 01/28 Biophysical profile score Non Stress Test NST interpretation: reactive. Test duration 30 min. Baseline FHR 130 bpm. Baseline variability: moderate. Accelerations: present. Decelerations: absent. Uterine activity: absent Growth Overview = Exam date GA BPD (mm) HC (mm) AC (mm) FL (mm) HL (mm) EFW (g) 10/06/2024 20w 5d 48 41% 182.6 38% 163.8 68% 34.3 44% 34.6 84% 397 64% 11/03/2024 24w 5d 58.5 17% 218.8 9% 208 62% 46 54% 771 58% 12/01/2024 28w 5d 68.9 12% 266.3 26% 251.5 63% 57.6 76% 51.3 78% 1397 65% 12/29/2024 32w 5d 78.2 10% 301.4 31% 290.2 60% 64.5 54% 59.9 96% 2095 49% Anatomy The following structures appear normal: Abdomen Stomach. Kidneys. Bladder. sex: female. Impression ========= Single, live, intrauterine at 34w3d The amniotic fluid volume is normal The biophysical profile is 01/28 Follow-up ======== Continue twice weekly testing Repeat growth assessment in two weeks Coding ====== Diagnoses O09.523: Supervision of elderly multigravida O99.213, E66.811: Obesity complicating , class 1 (BMI 30.0 - 34.9) O10.013, I10: Pre-existing essential hypertension complicating , Essential (primary) hypertension O24.113: Pre-existing type 2 diabetes mellitus, in O44.03: Complete placenta previa NOS or without hemorrhage Z36.2: Encounter for other screening follow-up O44.03: Complete placenta previa NOS or without hemorrhage O09.523: Supervision of elderly multigravida O99.213, E66.811: Obesity complicating , class 1 (BMI 30.0 - 34.9) O10.013, I10: Pre-existing essential hypertension complicating , Essential (primary) hypertension O24.113: Pre-existing type 2 diabetes mellitus, in Procedures 40972: US Uterus Limited 71438: Biophysical Profile W NST [facility] [employer] PACS Anatomical Region Laterality Modality Other 01/10/2025 10:0 6 AM CDT Sukhdev Gutierrez MD [facility] ORDERABLES Edited Result - Final documented in this encounter Visit Diagnoses Diagnosis Advanced maternal age in multigravida, first trimester (HCC)- Primary Pre-existing type 2 diabetes mellitus during in first trimester (HCC) Hypertension affecting in first trimester (HCC) 34 weeks gestation of ([facility]) state, incidental Encounter for other screening follow-up ([facility]) Encounter for ultrasound ([facility]) Encounter for routine screening for malformation using ultrasonics 32 weeks gestation of ([facility]) state, incidental Encounter for ultrasound to assess growth ([facility]) Placenta previa in third trimester (HCC) Advanced maternal age in multigravida, first trimester (HCC)- Primary Pre-existing type 2 diabetes mellitus during in first trimester (HCC) Hypertension affecting in first trimester (HCC) Encounter for other screening follow-up ([facility]) 34 weeks gestation of ([facility]) state, incidental Placenta previa in third trimester (HCC) documented in this encounter Care Teams Teacher Vocal Relationship Specialty Start Date End Date Eliu Galloway MD [address] [place] [id number] PCP - General 02/14/21 documented as of this encounter
--- OUTSIDE RECORDS SUMMARY | 2025-01-10 08:56 | XMS_ITS | Encounter Summary ---
Author Organization [facility] Address [address] [place] [address] Care Team Providers Care [facility] Name Role Phone Eliu Galloway MD Primary Care Provider [phone] Encounter Details Date Type Department Care Team (Latest Contact Info) Description 01/10/2025 8:56 AM CDT - 01/10/2025 11:59 PM CDT Hospital Encounter [facility] [address] [place] [id number] Kirti Bui MD [address] [address] Discharge Disposition: Home or Self Care Social [...] on file documented as of this encounter Medications at Time of Discharge [...] Glucagon (Baqsimi One Pack) 3 MG/DOSE POWD [place] 1 Each into the nose as needed For emergency use only 1 Each 08/04/2024 insulin glargine (Lantus/Semglee) 100 units/mL pen Inject 26 units in the morning and 56 units at bedtime. Take dosages approximately 12 hours apart. Increase dose as directed due to increasing insulin requirements during . Max total daily dose = 100u 30 mL 5 12/01/2024 Insulin Pen Needle (Pen [place]) 32G X 4 MM MISCIndications: Pre-existing type 2 diabetes mellitus during in first trimester ([facility]) Use 1 Each 2 times daily 100 Each 10/06/2024 lancetsIndicatio ns:Pre-existing type 2 diabetes mellitus during in first trimester ([facility]) Use 1 (one) Each once daily 100 Each 11 12/13/2024 NIFEdipine CR 24hr (Adalat CC) 30 MG tabletIndication s:Hypertension Take 1 (one) tablet by mouth once daily Take on an empty stomach. Reasons: High Blood Pressure Vit-Fe Fumarate-FA ( vitamin) 28-0.8 MG tabletIndication s: Take 1 (one) tablet by mouth once daily Reasons: sertraline (Zoloft) 50 MG tablet Take 1 (one) tablet by mouth once daily documented as of this encounter Plan of Treatment Upcoming Encounters Date Type Department Care Team (Late st Contact Info) Description 01/14/2025 8:15 AM CDT Hospital Encounter [facility] [address] [place] [id number] 01/18/2025 7:30 AM CDT Appointment [facility] [address] [place] [id number] 01/18/2025 8:15 AM CDT Appointment [facility] [address] [place] [id number] 01/21/2025 9:00 AM CDT Appointment [facility] [address] [place] [id number] 01/25/2025 7:30 AM CDT Appointment [facility] [address] [place] [id number] 01/25/2025 8:15 AM CDT Appointment [facility] [address] [place] [phone] 01/25/2025 9:00 AM CDT Appointment [facility] [address] [place] [phone] documented as of this encounter Visit Diagnoses Not on filedocumented in this encounter Care Teams [facility] Relationship Specialty Start Date End Date Eliu Galloway MD [address] [place] [id number] PCP - General 02/14/21 documented as of this encounter
--- NOTE | ~2025-01-11 | US_ITS ---
EXAMINATION: US OB BPP wo non-stress DATE: 01/11/2025 14:33 INDICATION: tachycardia TECHNIQUE: Real-time pelvic ultrasound was performed. The interpreting radiologist was not present for the study. COMPARISON: None. FINDINGS: There is a single living fetus in transverse presentation. The placenta is maternal right/posterior without previa. cardiac activity and movement are demonstrated. heart rate is 146 beats per minute (bpm). BAYRON is normal measuring 12.3 cm. Biophysical profile performed by the technologist: breathing (30 sec sustained breathing in 30 minutes): 2 out of 2 movement (3 gross body movements in 30 minutes): 2 out of 2 tone (one episode of edyovgc-[id number]-layfniu limb movement): 2 out of 2 Amniotic fluid pocket (2 cm): 2 out of 2 Total score: 8 out of 8 IMPRESSION: 1. Single living intrauterine in transverse presentation with heart rate of 146 bpm. 2. Placenta previa. 3. Biophysical profile 8 out of 8. Reviewed, dictated and finalized at location O. IMPRESSION: 1. Single living intrauterine in transverse presentation with h eart rate of 146 bpm. 2. Placenta previa. 3. Biophysical profile 8 out of 8.
[2025-01-11 12:50] VITALS: TEMP 36.4
--- NOTE | 2025-01-11 13:00 | PC.NURSE ---
Labs obtained under recurring NST number.
--- OUTSIDE RECORDS SUMMARY | 2025-01-11 13:15 | XMS_ITS | Clinical Summary ---
Author Organization [facility] Address [address] [facility] [facility] [place] [address] Care Team Providers Care Panel Maker Name Role Phone Eliu Galloway MD Primary Care Provider [phone] Source Comments [facility] [employer],non-owned Affiliates and Associated Physician Practices is amultiple site organization consisting of ambulatory clinics and hospital sitesin [place], [place], [place] and [place]. This disclosure is being madepursuant to the Care Everywhere program and may not contain all information available regarding this patient. Last updated [email or web address] Allergies No known active allergies Medications * [...] tablet by mouth once daily Reasons: Active Glucagon (Baqsimi One Pack) 3 MG/DOSE POWD [facility] 1 Each into the nose as needed For emergency use only 1 Each 08/05/19 25 Active aspirin EC (Ecotrin) 81 MG tablet Take 2 (two) tablets by mouth once daily Active docusate sodium (Colace) 100 MG capsuleIndicat ions:Constipat ion Take 1 (one) capsule by mouth once daily Reasons: Constipation Active Insulin Pen Needle (Pen Fenwick) 32G X 4 MM MISCIndication s:Pre-existing type 2 diabetes mellitus during in first trimester (HCC) Use 1 Each 2 times daily 100 Each 5 10/07/19 25 Active insulin glargine (Lantus/Semgle e) 100 units/mL pen Inject 26 units in the morning and 56 units at bedtime. Take dosages approximately 12 hours apart. Increase dose as directed due to increasing insulin requirements during . Max total daily dose = 100u 30 mL 5 12/02/19 25 Active Additional Information Patient taking differently: Inject 28 units in the morning and 66 units at bedtime. Take dosages approximately 12 hours apart. Increase dose as directed due to increasing insulin requirements during . Max total daily dose = 100u, Reason: Provider adjusted, Informant: Patient, Reported on 12/29/2024 lancetsIndicat ions:Pre-exist ing type 2 diabetes mellitus during in first trimester ([facility]) Use 1 (one) Each once daily 100 Each 11 12/14/19 25 Active blood glucose (JOHN CONTOUR NEXT TEST) test stripIndicatio ns:Pre-existin g type 2 diabetes mellitus during in first trimester ([facility]) Use 1 (one) strip 4 times daily Test blood sugar fasting and 1 hour after breakfast, lunch and dinner. 125 strip 5 12/14/19 25 Active blood glucose (JOHN CONTOUR NEXT TEST) test stripIndicatio ns:Pre-existin g type 2 diabetes mellitus during in first trimester ([facility]) Use 1 (one) strip 4 times daily 125 strip 5 08/05/19 25 12/13/2 025 Discontin ued(Reord er) lancetsIndicat ions:Pre-exist ing type 2 diabetes mellitus during in first trimester ([facility]) Use 1 (one) Each once daily 100 Each 11 08/05/19 25 12/13/2 025 Discontin ued(Reord er) blood glucose (JOHN CONTOUR NEXT TEST) test stripIndicatio ns:Pre-existin g type 2 diabetes mellitus during in first trimester ([facility]) Use 1 (one) strip 4 times daily Test blood sugar fasting and 1 hour after breakfast, lunch and dinner. 125 strip 5 12/14/19 25 12/13/2 025 Discontin ued(Reord er) Active Problems Problem Noted Date Diagnosed Date Placenta previa in third trimester 12/01/2024 Advanced maternal age in multigravida, first tri mester 08/02/2024 Pre-existing type 2 diabetes mellitus during in first trimester 08/02/2024 Hypertension affecting in first trimes ter 08/02/2024 11 weeks gestation of 08/02/2024 Estimated Date of Delivery Comme nts Yes 02/18/2025 Based on last me nstrual period of 05/14/2024 Encounters Date Type Department Care Team Description 01/10/2025 8:56 AM CDT - 01/10/2025 11:59 PM CDT Hospital Encounter [facility] [address] [place] [phone] Kirti Bui MD Discharge Disposition: Home or Self Care 01/10/2025 8:56 AM CDT - 01/10/2025 11:59 PM CDT Hospital Encounter [facility] [address] [place] [phone] Kirti Bui MD Discharge Disposition: Home or Self Care 01/07/2025 8:14 AM CDT - 01/07/2025 11:59 PM CDT Hospital Encounter [facility] [address] [place] [phone] Dimas Barnes MD Discharge Disposition: Home or Self Care 01/04/2025 8:16 AM CDT - 01/04/2025 11:59 PM CDT Hospital Encounter [facility] [address] [place] [phone] Dimas Barnes MD Discharge Disposition: Home or Self Care 01/04/2025 8:15 AM CDT Hospital Encounter [facility] [address] [place] [phone] Dimas Barnes MD Discharge Disposition: Home or Self Care 12/29/2024 9:45 AM CDT - 12/29/2024 11:59 PM CDT Hospital Encounter [facility] [address] [place] [phone] Coral Dias MD Discharge Disposition: Home or Self Care 12/29/2024 8:51 AM CDT - 12/29/2024 9:44 AM CDT Hospital Encounter [facility] [address] [place] [phone] Corla Dias MD Discharge Disposition: Home or Self Care 12/13/2024 Telephone [facility] [address] [place] [address] [phone] Lizbeth Dias, RN Refill Request (Patient emailed for refill of blood glucose test strips and lancets. Refill orders placed. ) 12/13/2024 Orders Only [facility] at [facility] [address] [facility] [address] [place] [phone] Kacey Buchanan, RD/LD Pre-existing type 2 diabetes mellitus during in first trimester ([facility]) 12/13/2024 Orders Only [facility] [address] [place] [address] [phone] Lizbeth Dias RN Pre-existing type 2 diabetes mellitus during in first trimester ([facility]) 12/01/2024 12:44 PM CDT - 12/01/2024 11:59 PM CDT Hospital Encounter [facility] [address] [place] [phone] Coral Dias MD Discharge Disposition: Home or Self Care 11/25/2024 8:15 AM CDT - 11/25/2024 11:59 PM CDT Hospital Encounter [address] [address] Michelle Roman, IDENTITY MANAGEMENT DEVELOPER-OPERATING ROOM AIDE Citlali Badillo MD Discharge Disposition: Home or Self Care 11/25/2024 8:13 AM CDT - 11/25/2024 8:14 AM CDT Hospital Encounter [facility] [address] [address] Citlali Badillo MD 11/15/2024 Travel 11/03/2024 8:54 AM CDT - 11/03/2024 11:59 PM CDT Hospital Encounter [facility] [address] [place] [address] Coral Dias MD Discharge Disposition: Home or Self Care [...] - Inhaled Oxygen Concentration - - Weight 117.1 kg (258 lb 3.2 oz) 12/29/2024 9:30 AM CDT Height 170.2 cm (5' 7) 08/04/2024 1:04 PM CDT Body Mass Index 40.44 08/04/2024 1:04 PM CDT Plan of Treatment Upcoming Encounters Date Type Department Care Team (Late st Contact Info) Description 01/14/2025 8:15 AM CDT Hospital Encounter [facility] [address] [place] [address] 01/18/2025 7:30 AM CDT Appointment [facility] [address] [place] [phone] 01/18/2025 8:15 AM CDT Appointment [facility] [address] [place] [address] 01/21/2025 9:00 AM CDT Appointment [facility] [address] [place] [phone] 01/25/2025 7:30 AM CDT Appointment [facility] [address] [place] [phone] 01/25/2025 8:15 AM CDT Appointment [facility] [address] [place] [phone] 01/25/2025 9:00 AM CDT Appointment [facility] [address] [place] [phone] Health Maintenance Due Date Last Done Comments HIV SCREENING 01/03/2004 HEPATITIS C SCREENING 12/29/2006 DTAP/TDAP/TD VACCINES (1 - Tdap) 01/03/2008 HEPATITIS B VACCINE (1 of 3 - 19+ 3-dose series) 01/03/2008 PAP SMEAR 2010 HPV VACCINE (1 - 3-dose SCDM series) 01/03/2016 DEPRESSION SCREENING 04/21/2024 OB-ONE HOUR GLUCOSE 11/12/2024 OB-TDAP CURRENT 11/19/2024 07/11/2022, OB-RHOGAM INJECTION 11/26/2024 COVID-19 VACCINE ( - 2024- season) 2024 04/26/2021, 06/23/2020 INFLUENZA VACCINE (#1) 2024 , 03/11/2022, 03/12/2021, Additional history exists Respiratory Syncytial Virus (RSV) Vaccine Pt: or over 60 yrs (1 - Risk 1-dose series) 12/24/2024 OB-GROUP B STREP SCREEN 01/14/2025 ZOSTER VACCINE (1 of 2) 2039 HIB [...] growth (HCC) Encounter for other screening follow-up ([facility]) Placenta previa in third trimester (HCC) BIOPHYSICAL PROFILE W NST Routine 01/04/2025 8:37 AM CDT Advanced maternal age in multigravida, first trimester (HCC) Pre-existing type 2 diabetes mellitus during in first trimester (HCC) Hypertension affecting in first trimester (HCC) 32 weeks gestation of (HCC) Encounter for ultrasound to assess growth (HCC) Encounter for other screening follow-up ([facility]) Placenta previa in third trimester (HCC) BIOPHYSICAL PROFILE W NST Routine 12/29/2024 8:53 AM CDT Advanced maternal age in multigravida, first trimester (HCC) Pre-existing type 2 diabetes mellitus during in first trimester (HCC) Hypertension affecting in first trimester (HCC) 32 weeks gestation of (HCC) Encounter for ultrasound to assess growth (HCC) Encounter for other screening follow-up ([facility]) Placenta previa in third trimester (HCC) SONOGRAM - COMPLETE Routine 12/01/2024 1 :55 PM CDT Advanced maternal age in multigravida, first trimester (HCC) Pre-existing type 2 diabetes mellitus during in first trimester (HCC) Hypertension affecting in first trimester (HCC) 16 weeks gestation of (HCC) ECHO COMPLETE CG Routine 11/25/2024 8:55 AM CDT Pre-existing type 2 diabetes mellitus during in first trimester (HCC) SONOGRAM - COMPLETE Routine 11/03/2024 9 :39 AM CDT Advanced maternal age in multigravida, first trimester (HCC) Pre-existing type 2 diabetes mellitus during in first trimester (HCC) Hypertension affecting in first trimester ([facility]) 16 weeks gestation of ([facility]) from Last 3 Months Results * Biophysical Profile w NST (01/10/2025 10:06 AM CDT) Only the most recent of3 resultswithin the time period is included. Linked Results Indication ======== Pre-existing type 2 diabetes mellitus, in Chronic hypertension (CHTN) complicating Maternal obesity complicating , class 1 (BMI 30.0 - 34.9) Advanced maternal age (AMA), multigravida Complete placenta previa NOS or without hemorrhage History ====== OB History 4. Para 2 [id number] 1. live 2019. Gest. age 39 w [...] Pre-existing type 2 diabetes mellitus, in Procedures 12615: US Uterus Limited 50750: Biophysical Profile W NST [facility] DNA SEQ PACS Anatomical Region Laterality Modality Other 01/10/2025 10:0 6 AM CDT Sukhdev Gutierrez MD [facility] ORDERABLES Edited Result - Final * SONOGRAM - COMPLETE (12/01/2024 1:55 PM CDT) Only the most recent of2 resultswithin the time period is included. Linked Results Indication ======== Screening Follow-Up Pre-existing type 2 diabetes mellitus, in Chronic hypertension (CHTN) complicating Maternal obesity complicating , class 1 (BMI 30.0 - 34.9) Advanced maternal age (AMA), multigravida Complete placenta previa NOS or without hemorrhage History ====== OB History 4. Para 2 [id number] 1. live 2019. Gest. age 39 w + 0 d. Weight 3,572 g. Sex of child: female. Details: 2. miscarriage 2020 3. live 2022. Gest. age 39 w + 5 d. Weight 4,365 g. Sex of child: male. Details: Lab Tests Test Date Result NIPT Low risk, Female Maternal Assessment Physical Exam Height 170 cm, 5 ft 7 in. Weight 116 kg, 255 lb. Initial weight 98 kg, 216 lb. BMI 39.94 kg/m . Initial BMI 33.83 kg/m . Weight gain 18 kg, 39 lb Method ====== Transabdominal and transvaginal ultrasound. View: Sufficient ========= Goel . Number of fetuses: 1 Dating ====== Date Details Gest. age DAMIAN LMP 05/14/2024 28 w + 5 d 02/18/2025 Stated DAMIAN 28 w + 5 d 02/18/2025 U/S 12/01/2024 based upon AC, BPD, Femur, HC 29 w + 0 d 02/16/2025 Assigned dating based on the LMP, selected on 08/04/2024 28 w + 5 d 02/18/2025 General Evaluation Cardiac activity present. FHR 137 bpm. Presentation: cephalic Placenta: Placental site: posterior, left lateral. Complete Placenta Previa Umbilical cord: Cord vessels: 3 vessel cord - previously documented Amniotic fluid: Amount of AF: normal. MVP 6.0 cm. BAYRON 18.1 cm. Q1 5.6 cm, Q2 4.0 cm, Q3 6.0 cm, Q4 2.5 cm Biometry BPD 68.9 mm 27w 5d 12% Hadlock HC 266.3 mm 29w 0d 26% Hadlock AC 251.5 mm 29w 2d 63% Hadlock Femur 57.6 mm 30w 1d 76% Hadlock Humerus 51.3 mm 30w 0d 78% Mohini HC / AC 1.06 -/- Hadlock Weight Calculation: EFW 1,397 g 65% Hadlock EFW (lb,oz) 3 lb 1 oz EFW by Hadlock ([id number]) appropriate Growth Overview Exam date GA BPD (mm) HC (mm) AC (mm) FL (mm) HL (mm) EFW (g) 10/06/2024 20w 5d 48 41% 182.6 38% 163.8 68% 34.3 44% 34.6 84% 397 64% 11/03/2024 24w 5d 58.5 17% 218.8 9% 208 62% 46 54% 771 58% 12/01/2024 28w 5d 68.9 12% 266.3 26% 251.5 63% 57.6 76% 51.3 78% 1397 65% Anatomy The following structures appear normal: Abdomen Stomach. Kidneys. Bladder. sex: female. Maternal Structures Cervix reassuring Approach - Transvaginal: Cervical length 6.00 cm Impression ========= Single, live, intrauterine at 28w 5d The size is appropriate. The amniotic fluid volume is normal. Transvaginal cervical length is reassuring. Single live intrauterine at 28w 5d Complete placenta previa No major malformations were seen within the limitations of ultrasound. Follow-up ======== Follow up ultrasound in 4 weeks for growth assessment and reassess placental location. Begin testing at 32 weeks. At this time, it is less likely that the previa will resolve. Coding ====== Diagnoses O09.523: Supervision of elderly multigravida O99.213, E66.811: Obesity complicating , class 1 (BMI 30.0 - 34.9) O10.013, I10: Pre-existing essential hypertension complicating , Essential (primary) hypertension O24.113: Pre-existing type 2 diabetes mellitus, in O44.03: Complete placenta previa NOS or without hemorrhage Z36.2: Encounter for other screening follow-up Procedures 40929: [place] [address]: [place] Preg Uterus Transvaginal DNA SEQ PACS Anatomical Region Laterality Modality Other 12/01/2024 1:55 PM CDT Sukhdev Gutierrez MD [facility] ORDERABLES Edited Result - Final * ECHO COMPLETE CG (11/25/2024 8:55 AM CDT) MV E pk fara 44.64 cm/s SSM CV F UJI PACS MV A pk fara 62.28 cm/s SSM CV F UJI PACS IVSd 2D 0.24 cm SSM CV FUJ I PACS Anatomical Region Laterality Modality Ultrasound 11/25/2024 8:31 AM CDT Narrative 11/25/2024 11:04 AM CDT Name: Latisha Laurent Patient Exam Info Gender: Female Patient Status: O/P : 1990 Admit Date: 11/25/2024 Exam Date/Time: 11/25/2024 8:31 AM Site: [facility] Current Location: CARE EStaffOrdering Provider: Michelle Roman Interpreting Physician: Citlali Badillo MD Automobile Contract Clerk: Jaswinder Garza ADARSH Study Info Procedure: ECHO COMPLETE CG Indications: O24.111 - Pre-existing type 2 diabetes mellitus during in first trimester (HCC) Maternal Gestational Status GA by EDC: 27 wks , 6 days EDC: 02/18/2025 Type: Goel Age: 34 yrs Lie: Transverse Summary * The echocardiogram was within normal limits. * Small atrial and ventricular septal defects and persistent ductus arteriosus cannot be excluded as findings. Anatomic Relationships Left sided cardiac apex (levocardia). There is normal visceral-cardiac situs, and normal segmental cardiac anatomical relationship. Systemic Veins There is normal systemic venous return. Pulmonary Veins The visualized pulmonary veins drain normally to the left atrium. Right Atrium The right atrial size is normal. Left Atrium The left atrial size is normal. Atrial Septum Patent foramen ovale with open foramen flap. Color flow is right to left. Right Ventricle The right ventricular cavity size is normal. The right ventricular wall thickness is normal. The right ventricular systolic function is normal. RV Outflow Tract The right ventricular outflow tract is normal. Left Ventricle The left ventricular cavity size is normal. The left ventricular wall thickness is normal. The left ventricular systolic function is normal. Ventricular Septum There is no ventricular septal defect with no shunting. LV Outflow Tract The left ventricular outflow tract is normal. Tricuspid Valve The tricuspid valve is structurally normal. The tricuspid inflow pattern is normal. Tricuspid velocity is within the normal range. There is no tricuspid regurgitation. Mitral Valve The mitral valve is structurally normal. The mitral inflow pattern is normal. Mitral velocity is within the normal range. There is no mitral regurgitation. Aorta aortic arch visualized and is without obstruction by 2D, color flow and Doppler. Pulmonary Arteries The main pulmonary artery is normal, with confluent branch pulmonary arteries. Ductus Arteriosus The antegrade flow velocity and pattern in the ductal arch is normal. A normal ductus arteriosus is appreciated. Doppler Flow in the ductus venosus is normal. The umbilical vein flow pattern is normal. The umbilical artery flow pattern is normal. Hydrops Assessment No pericardial effusion. No ascites present. No pleural effusion(s). Rhythm The rhythm is normal. There is 1:1 AV conduction. Pulmonary Valve The pulmonic valve is normal-sized. The transpulmonic velocity is within normal range. There is no pulmonic regurgitation. Aortic Valve The aortic valve is normal-sized. The transaortic velocity is within normal range. There is no aortic regurgitation. 2D Measurements (Fetus A) Ventricles Name Value Normal Z-Score Percentile Left Ventricle IVS Diastolic Thickness (2D) 2.4 mm Doppler Measurements (Fetus A) Atrioventricular Valves Name Value Normal Z-Score Percentile Atrioventricular Valves Doppler TV E Peak Velocity 0.5 m/s TV A Peak Velocity 0.7 m/s MV E Peak Velocity 0.4 m/s MV A Peak Velocity 0.6 m/s (Fetus A) Semilunar Valves Name Value Normal Z-Score Percentile Semilunar Valves Doppler PV Peak Velocity. 0.6 m/s AV Peak Velocity () 0.9 m/s (Fetus A) Heart Rate Name Value Normal Z-Score Percentile Heart Rate HR 142 bpm Report Signatures Finalized by Citlali Badillo MD on 11/25/2024 11:04 AM Procedure Note Citlali Badillo MD - 11/25/2024 Name: Latisha Laurent Patient Exam Info Gender: Female Patient Status: O/P : 1990 Admit Date: 11/25/2024 Exam Date/Time: 11/25/2024 8:31 AM Site: [facility] Current Location: CARE EStaffOrdering Provider: Michelle Roman Interpreting Physician: Citlali Badillo MD Automobile Contract Clerk: Jaswinder Garza [facility] Study Info Procedure: ECHO COMPLETE CG Indications: O24.111 - Pre-existing type 2 diabetes mellitus during infirst trimester (HCC) Maternal Gestational Status GA by EDC: 27 wks , 6 days EDC: 02/18/2025 Type: Goel Age: 34 yrs Lie: Transverse Summary * The echocardiogram was within normal limits. * Small atrial and ventricular septal defects and persistent ductus arteriosus cannot be excluded as findings. Anatomic Relationships Left sided cardiac apex (levocardia). There is normal visceral-cardiac situs, and normal segmental cardiac anatomical relationship. Systemic Veins There is normal systemic venous return. Pulmonary Veins The visualized pulmonary veins drain normally to the left atrium. Right Atrium The right atrial size is normal. Left Atrium The left atrial size is normal. Atrial Septum Patent foramen ovale with open foramen flap. Color flow is right toleft. Right Ventricle The right ventricular cavity size is normal. The right ventricularwall thickness is normal. The right ventricular systolic function is normal. RV Outflow Tract The right ventricular outflow tract is normal. Left Ventricle The left ventricular cavity size is normal. The left ventricular wall thickness is normal. The left ventricular systolic function is normal. Ventricular Septum There is no ventricular septal defect with no shunting. LV Outflow Tract The left ventricular outflow tract is normal. Tricuspid Valve The tricuspid valve is structurally normal. The tricuspid inflow patternis normal. Tricuspid velocity is within the normal range. There is notricuspid regurgitation. Mitral Valve The mitral valve is structurally normal. The mitral inflow pattern is normal. Mitral velocity is within the normal range. There is no mitral regurgitation. Aorta aortic arch visualized and is without obstruction by 2D, colorflow and Doppler. Pulmonary Arteries The main pulmonary artery is normal, with confluent branch pulmonary arteries. Ductus Arteriosus The antegrade flow velocity and pattern in the ductal arch is normal.A normal ductus arteriosus is appreciated. Doppler Flow in the ductus venosus is normal. The umbilical vein flow patternis normal. The umbilical artery flow pattern is normal. Hydrops Assessment No pericardial effusion. No ascites present. No pleural effusion(s). Rhythm The rhythm is normal. There is 1:1 AV conduction. Pulmonary Valve The pulmonic valve is normal-sized. The transpulmonic velocity iswithin normal range. There is no pulmonic regurgitation. Aortic Valve The aortic valve is normal-sized. The transaortic velocity is withinnormal range. There is no aortic regurgitation. 2D Measurements (Fetus A) Ventricles Name Value Normal Z-ScorePercentile Left Ventricle IVS Diastolic Thickness (2D) 2.4 mm Doppler Measurements (Fetus A) Atrioventricular Valves Name Value Normal Z-ScorePercentile Atrioventricular Valves Doppler TV E Peak Velocity 0.5 m/s TV A Peak Velocity 0.7 m/s MV E Peak Velocity 0.4 m/s MV A Peak Velocity 0.6 m/s (Fetus A) Semilunar Valves Name Value Normal Z-ScorePercentile Semilunar Valves Doppler PV Peak Velocity. 0.6 m/s AV Peak Velocity () 0.9 m/s (Fetus A) Heart Rate Name Value Normal Z-ScorePercentile Heart Rate HR 142 bpm Report Signatures Finalized by Citlali Badillo MD on 11/25/2024 11:04 AM Michelle Roman APRN-OPERATING ROOM AIDE ECHO CUPID Fin al Result from Last 3 Months Insurance ANTHEM Care Teams Panel Maker Relationship Specialty Start Date End Date Eliu Galloway MD [address] [place] [address] [address] [place] [address] PCP - General 02/14/21
--- OUTSIDE RECORDS SUMMARY | 2025-01-11 13:15 | XMS_ITS | Clinical Summary ---
Author Organization [facility] Address [address] [facility] [address] [place] [id number] Phone Care Team Providers Care Head Porter Name Role Phone Gavino Mendozaelle Tiara MATTRESS MAKER Primary Care Provider + Allergies No known [...] 05/04/2024 Assessment & Plan (05/04/2024 9:24 AM MILITARY POLICE OFFICER): Referral from Dr. Goldstein/ Dr. Trejo [facility] Good ocular health Lattice degeneration OS Elevated [...] of surgery. Same day exam/surgery LASIK [facility] [place] [facility] Discussed lattice and symptoms of RD Social History Tobacco Use Types Packs/Day Years Used Date Smoking Tobacco: Never Smokeless Tobacco: Never Tobacco Cessation:Counseling Given: Not Answered Comments Unknown Sex and Gender Information Value Date Recorded Sex Assigned at Not on file Legal Sex Female 7:20 AM [employer]ITARY [employer] OFFICER Gender Identity Female 05/03/2024 11:01 AM [employer]ARY [employer] OFFICER Sexual Orientation Straight 05/03/2024 11 :01 AM [employer]ITARY POLICE OFFICER Obstetrics History Plan of Treatment Health Maintenance Due Date Last Done Comments Cervical Cancer Screening 1989 Depression Screening 1989 Hepatitis C Screening 1989 Varicella Vaccines (1 of 2 - 13+ 2-dose series) 2002 Hepatitis B Screening 2007 Regular Well Visit/Exam 18-64 2007 HPV Vaccines (1 - 3-dose SCDM series) 01/03/2016 Covid-19 Vaccine (3 - season) 2024 04/26/2021, 06/23/2020 Influenza Vaccine (#1) 2024 , 03/11/2022, 03/12/2021, Additional history exists DTaP/Tdap/Td Vaccine (3 - Td or Tdap) 07/11/2032 07/11/2022, 07/13/2019 Pneumococcal vaccine <65 Aged Out No longer eligible based on patient's age to complete this topic Insurance [employer] Care Teams Head Porter Relationship Specialty Start Date End Date Cecily Mendoza NP PCP - General Nurse Practitioner 05/04/24
[2025-01-11 13:16] VITALS: BP 119/70; PULSE 78
--- OUTSIDE RECORDS SUMMARY | 2025-01-11 13:16 | XMS_ITS | Clinical Summary ---
Author Organization [facility] Address [address] [place] [address] Phone Care Team Providers Care Production Grip Name Role Phone Unavailable Primary Care Provider Unavailabl e Medications No known medications Active Problems Estimated Date of Delivery Comme nts Yes 02/18/2025 No known active problems Encounters Date Type Department Care Team Description 01/05/2025 External Device Data [facility] Provider, Abstract 12/21/2024 External Device Data [facility] Provider, Abstract 12/07/2024 External Device Data [facility] Provider, Abstract 11/30/2024 External Device Data [facility] Provider, Abstract 11/30/2024 External Device Data [facility] Provider, Abstract 11/30/2024 External Device Data [facility] Provider, Abstract 11/29/2024 10:00 AM CDT Video Visit [facility] and Medicine - Medical [facility] [address] [address], [place] [address] with type 2 diabetes mellitus in third trimester (Primary Dx); 28 weeks gestation of 11/29/2024 Chart Note [facility] and Medicine - Medical [place] [facility] [address], [place] [address] Diabetes 11/23/2024 Abstract [facility]aternal and Medicine - Medical [place] [facility] [address] [facility] [address], [place] [address] Gisela Ferguson RN 11/23/2024 Abstract [facility]aternal and Medicine - Medical [place] [facility] [address] [facility] [address], [place] [address] Gisela Ferguson, RN from Last 3 Months Social History Tobacco Use Types Packs/Day Years Used Date Smoking Tobacco: Never Assessed Estimated Date of Delivery Comme nts Yes 02/18/2025 Sex and Gender Information Value Date Recorded Sex Assigned at Not on file Legal Sex Female 9:21 AM CDT Gender Identity Not on file Sexual Orientation Not on file Last Filed Vital Signs Vital Sign Reading Time Taken Comments Blood Pressure - - Pulse - - Temperature - - Respiratory Rate - - Oxygen Saturation - - Inhaled Oxygen Concentration - - Weight 113.9 kg (251 lb) 11/29/2024 11:36 AM CDT Height 170.2 cm (5' 7) 11/29/2024 11:36 AM CDT Body Mass Index 39.31 11/29/2024 11:36 AM CDT Plan of Treatment Health Maintenance Due Date Last Done Comments DIABETES ANNUAL FOOT EXAM 2007 DIABETES ANNUAL RETINAL EXAM 2007 DIABETES HBA1C Q 6 MONTHS 2007 DIABETES MICROALBUMIN ANNUAL SCREEN 2007 LDL CHOLESTEROL ANNUAL 2007 HEPATITIS B VACCINES (1 of 3 - 19+ 3-dose series) 01/03/2008 HPV/Cotest (21-29) 2010 HPV VACCINES (1 - 3-dose SCD M series) 01/03/2016 CERVICAL CANCER SCREENING 2019 HPV/Cotest (30-65) 2019 PAP SMEAR 2019 INFLUENZA VACCINE (#1) 2024 , 03/11/2022, 03/12/2021, Additional history exists RSV VACCINE (60+ or ) (1 - Risk 1-dose series) 12/24/2024 DTAP/TDAP/TD VACCINES (3 - T d or Tdap) 07/11/2032 07/11/2022, 07/13/2019
--- OUTSIDE RECORDS SUMMARY | 2025-01-11 13:16 | XMS_ITS | Clinical Summary ---
Author Organization [facility] Address [address] [place] [address] Care Team Providers Care Chicken Cutter Name Role Phone Luke Olson MD Primary Care Provider [phone] Allergies No known active allergies Medications metFORMIN ER, OSM, (FORTAMET) 500 MG 24 hr tablet Take 1 tablet (500 mg total) by mouth daily with breakfast. Active tirzepatide (MOUNJARO) 2.5 MG/0.5ML injection Inject 2.5 mg into the skin every 7 days. Active NIFEdipine ER (ADALAT CC) 30 MG 24 hr tablet Take 1 tablet (30 mg total) by mouth daily. Active HYDROcodone-acet aminophen (NORCO) 5-325 MG tabletIndication s:Acute Pain < 3 Day Supply Take 1 tablet by mouth every 6 (six) hours as needed for Pain. Indications : Acute Pain < 3 Day Supply 8 tablet 12/06/2022 Active Family History Medical History Relation Comments renal cell carcinoma Father Relation Status Comments Father Social History Tobacco Use Types Packs/Day Years Used Date Smoking Tobacco: Never Smokeless Tobacco: Never Alcohol Use Standard Drinks/Week Comments Not Currently 0 (1 standard drink = 0.6 oz pur e alcohol) Comments Unknown Sex and Gender Information Value Date Recorded Sex Assigned at Not on file Legal Sex Female 7:59 PM CDT Gender Identity Not on file Sexual Orientation Not on file Last Filed Vital Signs Vital Sign Reading Time Taken Comments Blood Pressure 157/97 12/06/2022 9:10 AM CDT Pulse 55 12/06/2022 9:10 AM CDT Temperature 36.3 C (97.3 F) 12/06/2022 9:10 AM CDT Respiratory Rate 20 12/06/2022 9:10 AM CDT Oxygen Saturation 97% 12/06/2022 9:10 AM CDT Inhaled Oxygen Concentration - - Weight 106.6 kg (235 lb) 12/06/2022 5:35 AM CDT Height 170.2 cm (5' 7) 12/06/2022 5:35 AM CDT Body Mass Index 36.81 12/06/2022 5:35 AM CDT Plan of Treatment Health Maintenance Due Date Last Done Comments Cervical Cancer Screening Pap Smear (Age 30 to 64) Every 3 Years 1989 Annual Physical 01/03/1992 DTaP, Tdap and Td Vaccines (5 - Tdap) 01/03/2000 11/13/1994, 12/19/1993, 02/17/1990, Additional history exists Hepatitis C 2007 HPV Vaccines (1 - 3-dose SCDM series) 01/03/2016 Cervical Cancer Screening Pap with HPV Testing (Age 30 to 64) Every 5 Years 2019 Cervical Cancer Screening with HPV 2019 COVID-19 Vaccine ( season) 2024 Hepatitis B Vaccines Completed 07/31/1999, 02/27/1999, 01/23/1999 Meningococcal B Vaccine Aged Out No l onger eligible based on patient's age to complete this topic Meningococcal Vaccine Aged Out No esteban senait eligible based on patient's age to complete this topic Pneumococcal Vaccine: Pediatrics (0 to 5 Years) and At-Risk Patients (6 to 49 Years) Aged Out No longer eligible based on patient's age to complete this topic RSV Immunizations Under 20 Months Aged Out No longer eligible based on patient's age to complete this topic Insurance [employer] Care Teams Chicken Cutter Relationship Specialty Start Date End Date Luke Olson MD [address] [place] [id number] PCP - General FAMILY PRACTICE 12/06/22
[2025-01-11] MEDS: ONDANSETRON HCL ODT 4 MG TABLET PO (13:28)
[2025-01-11 13:30] VITALS: BP 115/72; PULSE 78
== END 2025-01-11 14:40 | disposition home or self-care (01) ==
LOC: ANHOBOP 13:08 → ANHOBPP 13:08
PROVIDERS: PCP Nurse Practitioner Family; Visit Provider Obstetrics & Gynecology
DX: O13.9 Gestational [pregnancy-induced] hypertension without significant proteinuria, unspecified trimester (principal); Z3A.00 Weeks of gestation of pregnancy not specified
CPT/HCPCS: 36415; 76819; 80053; 81001; 82570; 84156; 84550; 85025; 87086; 99199; A9270

== ENCOUNTER 2025-01-11 12:18 | Outpatient (RCR) | payer BC, SELFPAY ==
[2024-12-29 11:55] VITALS: BP 119/54; PULSE 79
[2025-01-11 12:57] LABS: Hematocrit 32.9 % (37.0-47.0); Hemoglobin 11.0 g/dL (12.0-15.0); Immature Granulocyte Percent A 0.8 % (0-0.5); Lymphocytes Absolute Auto 0.75 K/mm3 (0.9-3.2); Mean Corpuscular HGB Conc 33.4 g/dl (32-36); Mean Corpuscular Hemoglobin 29.3 pg (26-34); Mean Corpuscular Volume 87.7 fl (80-100); Nucleated Red Blood Cells Absolute Auto 0.000 K/mm3 (0.0-0.012); Nucleated Red Blood Cells Perc 0.0 % (0.0-0.2); Platelet Count Result 169 k/mm3 (150-375); Red Blood Count 3.75 M/mm3 (4.2-5.4); White Blood Count 9.6 K/mm3 (4.5-10.0)
[2025-01-11 13:01] LABS: Add Urine Microscopic? YES; Appearance Urine Clear (Clear); Glucose Urine UA Negative (Negative); Leukocyte Esterase Ur 2+ LEU/UL (Negative); Nitrate Urine Negative (Negative); Non Pathogenic Casts 0-2; Specific Grav Ur 1.007 (1.001-1.035)
[2025-01-11 13:07] LABS: Alanine Aminotransferase 24 U/L (6-35); Albumin Level 3.3 g/dL (3.5-5.1); Alkaline Phosphatase 99 U/L (38-126); Anion Gap 6 mmol/L (4-12); Aspartate Amino Transferase 36 U/L (14-36); Bilirubin,Total 0.4 mg/dL (0.2-1.3); Blood Urea Nitrogen 11 mg/dL (7-17); Calcium 8.4 mg/dL (8.4-10.2); Carbon Dioxide 20 mmol/L (22-30); Chloride 107 mmol/L (98-107); Estimated Glomerular Filt Rate > 60; Glucose 97 mg/dL (65-110); Potassium 3.7 mmol/L (3.4-5.0); Sodium 133 mmol/L (137-145); Total Protein 6.6 g/dL (6.3-8.2); Uric Acid 4.3 mg/dL (2.5-7.5)
[2025-01-11 13:08] LABS: Total Protein Urine Random 11 mg/dL; Ur Ttl Prot Creatinine Ratio 0.43 mg/mg (0-0.20)
== END 2025-01-29 09:27 | disposition other institution (70) ==
LOC: ANHOBOP 12:18
PROVIDERS: PCP Nurse Practitioner Family; Visit Provider Obstetrics & Gynecology
DX: O36.8390 Maternal care for abnormalities of the fetal heart rate or rhythm, unspecified trimester, not applicable or unspecified (principal)
CPT/HCPCS: 36415; 59025; 80053; 81001; 82570; 84156; 84550; 85025; 87086

== ENCOUNTER 2025-01-24 09:01 | Outpatient (CLI) | payer BC, SELFPAY ==
--- OUTSIDE RECORDS SUMMARY | 2025-01-24 09:39 | XMS_ITS | Clinical Summary ---
Author Organization [facility] Address [address] [facility] [place] [address] Care Team Providers Care Exercise Scientist Name Role Phone Eliu Galloway MD Primary Care Provider [phone] Source Comments [facility],non-owned Affiliates and Associated Physician Practices is amultiple site organization consisting of ambulatory clinics and hospital sitesin [place], [place], [place] and [place]. This disclosure is being madepursuant to the Care Everywhere program and may not contain all information available regarding this patient. Last updated 18.[place] [facility] Allergies No known active allergies Medications * [...] Glucagon (Baqsimi One Pack) 3 MG/DOSE POWD [place] 1 Each into the nose as needed For emergency use only 1 Each 5 Active aspirin EC (Ecotrin) 81 MG tablet Take 2 (two) tablets by mouth once daily Active docusate sodium (Colace) 100 MG capsuleIndicat ions:Constipat ion Take 1 (one) capsule by mouth once daily Reasons: Constipation Active Insulin Pen Needle (Pen [place]) 32G X 4 MM MISCIndication s:Pre-existing type 2 diabetes mellitus during in first trimester (HCC) Use 1 Each 2 times daily 100 Each 5 5 Active insulin glargine (Lantus/Semgle e) 100 units/mL pen Inject 26 units in the morning and 56 units at bedtime. Take dosages approximately 12 hours apart. Increase dose as directed due to increasing insulin requirements during . Max total daily dose = 100u 30 mL 5 5 Active Additional Information Patient taking differently: Inject 28 units in the morning and 66 units at bedtime. Take dosages approximately 12 hours apart. Increase dose as directed due to increasing insulin requirements during . Max total daily dose = 100u, Reason: Provider adjusted, Informant: Patient, Reported on 12/29/2024 lancetsIndicat ions:Pre-exist ing type 2 diabetes mellitus during in first trimester ([facility]) Use 1 (one) Each once daily 100 Each 11 5 Active blood glucose (JOHN CONTOUR NEXT TEST) test stripIndicatio ns:Pre-existin g type 2 diabetes mellitus during in first trimester ([facility]) Use 1 (one) strip 4 times daily Test blood sugar fasting and 1 hour after breakfast, lunch and dinner. 125 strip 5 5 Active Active Problems Problem Noted Date Diagnosed Date Placenta previa in third trimester 12/01/2024 Advanced maternal age in multigravida, first [facility] 08/02/2024 Pre-existing type 2 diabetes mellitus during in first trimester 08/02/2024 Hypertension affecting in first [facility] 08/02/2024 11 weeks gestation of 08/02/2024 Estimated Date of Delivery Comme nts Yes 02/18/2025 Based on last me nstrual period of 05/14/2024 Encounters Date Type Department Care Team Description 01/21/2025 8:53 AM CDT - 01/21/2025 11:59 PM CDT Hospital Encounter [facility] & Care [address] [place] [address] [phone] Earl Cuevas DO FACE WORKER Discharge Disposition: Home or Self Care 01/18/2025 7:25 AM CDT - 01/18/2025 11:59 PM CDT Hospital Encounter [facility] Care [address] [place] [address] 23120 Best Montague MD Discharge Disposition: Home or Self Care 01/18/2025 7:25 AM CDT - 01/18/2025 11:59 PM CDT Hospital Encounter [facility] Maternal & Care [address] [place] [address] 23166 Best Montague MD FACE WORKER Discharge Disposition: Home or Self Care 01/14/2025 8:11 AM CDT - 01/14/2025 11:59 PM CDT Hospital Encounter [facility] M[facility] & Care [address] [place] [address] 29295 Dimas Barnes MD Discharge Disposition: Home or Self Care 01/10/2025 8:56 AM CDT - 01/10/2025 11:59 PM CDT Hospital Encounter [facility] M[facility] & Care [address] [place] [address] [phone] Kirti Bui MD Discharge Disposition: Home or Self Care 01/10/2025 8:56 AM CDT - 01/10/2025 11:59 PM CDT Hospital Encounter [facility] Maternal & Care [address] [place] [address] 76633 Kirti Bui MD Discharge Disposition: Home or Self Care 01/07/2025 8:14 AM CDT - 01/07/2025 11:59 PM CDT Hospital Encounter [facility] Maternal & Care [address] [place] [address] [phone] Dimas Barnes MD Discharge Disposition: Home or Self Care 01/04/2025 8:16 AM CDT - 01/04/2025 11:59 PM CDT Hospital Encounter [facility] Maternal & Care [address] [place] [address] 30372 Dimas Barnes MD Discharge Disposition: Home or Self Care 01/04/2025 8:15 AM CDT Hospital Encounter [facility] Maternal & Care [address] [place] [address] Dimas Barnes MD Discharge Disposition: Home or Self Care 12/29/2024 9:45 AM CDT - 12/29/2024 11:59 PM CDT Hospital Encounter [facility] Maternal & Care [address] [place] [address] 29301 Coral iDas MD Discharge Disposition: Home or Self Care 12/29/2024 8:51 AM CDT - 12/29/2024 9:44 AM CDT Hospital Encounter [facility] M[facility] & Care [address] [place] [address] 889[address] Coral Dias MD Discharge Disposition: Home or Self Care 12/13/2024 Telephone [facility] M[facility] & Care [address] [place] [address] 88140 Lizbeth Dias, RN Refill Request (Patient emailed for refill of blood glucose test strips and lancets. Refill orders placed. ) 12/13/2024 Orders Only Maternal & Care at [facility] [address] [facility] , [address] [place] [address] Kacey Buchanan, CHRIS/LD Pre-existing type 2 diabetes mellitus during in first trimester (HCC) 12/13/2024 Orders Only [facility] Maternal & Care [address] [place] [address] 37947 Lizbeth Dias RN Pre-existing type 2 diabetes mellitus during in first trimester (HCC) 12/01/2024 12:44 PM CDT - 12/01/2024 11:59 PM CDT Hospital Encounter [facility] Maternal & Care [address] [place] [address] 9[address] Coral Dias MD Discharge Disposition: Home or Self Care 11/25/2024 8:15 AM CDT - 11/25/2024 11:59 PM CDT Hospital Encounter [facility] [place] [address] [place] [address] 24605 Michelle Roman, EMBEDDED DEVELOPER-MORTUARY BEAUTICIAN Citlali Badillo MD Discharge Disposition: Home or Self Care 11/25/2024 8:13 AM CDT - 11/25/2024 8:14 AM CDT Hospital Encounter [facility] [place] [address] [place] [address] Citlali Badillo MD 11/15/2024 Travel 11/03/2024 8:54 AM CDT - 11/03/2024 11:59 PM CDT Hospital Encounter [facility] Maternal & Care [address] [place], [place] [phone] Coral Dias MD Discharge Disposition: Home or [...] Sign Reading Time Taken Comments Blood Pressure 117/69 01/21/2025 9:29 AM CDT Pulse 68 01/21/2025 9:29 AM CDT Temperature - - Respiratory Rate - - Oxygen Saturation - - Inhaled Oxygen Concentration - - Weight 117.1 kg (258 lb 3.2 oz) 12/29/2024 9:30 AM CDT Height 170.2 cm (5' 7) 08/04/2024 1:04 PM CDT Body Mass Index 40.44 08/04/2024 1:04 PM CDT Plan of Treatment Health Maintenance Due Date Last Done Comments HIV SCREENING 01/03/2004 HEPATITIS C SCREENING 12/29/2006 DTAP/TDAP/TD VACCINES (1 - Tdap) 01/03/2008 HEPATITIS B VACCINE (1 of 3 - 19+ 3-dose series) 01/03/2008 PAP SMEAR 2010 HPV VACCINE (1 - 3-dose SCDM series) 01/03/2016 DEPRESSION SCREENING 04/21/2024 OB-ONE HOUR GLUCOSE 11/12/2024 OB-TDAP CURRENT 11/19/2024 07/11/2022, OB-RHOGAM INJECTION 11/26/2024 COVID-19 VACCINE (3 - 2024- season) 2024 04/26/2021, 06/23/2020 INFLUENZA [...] Procedure Name Priority Date/Time Associated Diagnosis Comments NON-STRESS TEST Routine 01/21/2025 12:55 PM CDT Advanced maternal age in multigravida, first trimester (HCC) Pre-existing type 2 diabetes mellitus during in first trimester (HCC) Hypertension affecting in first trimester (HCC) Encounter for other screening follow-up ([facility]) 34 weeks gestation of ([facility]) Placenta previa in third trimester ([facility]) BIOPHYSICAL PROFILE W NST Routine 01/18/2025 7:27 AM CDT Advanced maternal age in multigravida, first trimester (HCC) Pre-existing type 2 diabetes mellitus during in first trimester (HCC) Hypertension affecting in first trimester (HCC) 32 weeks gestation of (HCC) Encounter for ultrasound to assess growth (HCC) Encounter for other screening follow-up (HCC) Placenta previa in third trimester (HCC) BIOPHYSICAL PROFILE W NST Routine 01/10/2025 10:06 AM CDT Advanced maternal age in multigravida, first trimester (HCC) Pre-existing type 2 diabetes mellitus during in first trimester (HCC) Hypertension affecting in first trimester (HCC) 32 weeks gestation of (HCC) Encounter for ultrasound to assess growth (HCC) Encounter for other screening follow-up (HCC) Placenta previa in third trimester (HCC) BIOPHYSICAL PROFILE W NST Routine 01/04/2025 8:37 AM CDT Advanced maternal age in multigravida, first trimester (HCC) Pre-existing type 2 diabetes mellitus during in first trimester (HCC) Hypertension affecting in first trimester (HCC) 32 weeks gestation of (HCC) Encounter for ultrasound to assess growth (HCC) Encounter for other screening follow-up (HCC) Placenta previa in third trimester (HCC) BIOPHYSICAL PROFILE W NST Routine 12/29/2024 8:53 AM CDT Advanced maternal age in multigravida, first trimester (HCC) Pre-existing type 2 diabetes mellitus during in first trimester (HCC) Hypertension affecting in first trimester (HCC) 32 weeks gestation of (HCC) Encounter for ultrasound to assess growth (HCC) Encounter for other screening follow-up (HCC) Placenta previa in third trimester (HCC) SONOGRAM [...] trimester (HCC) 16 weeks gestation of (HCC) from Last 3 Months Results * Non-Stress Test (01/21/2025 12:55 PM CDT) Anatomical Region Laterality Modality Other Narrative 01/21/2025 12:55 PM CDT Earl Cuevas DO 01/21/2025 12:57 PM Name: Latisha Laurent Date of : 1990 Today's Date: 01/21/2025 36w0d NST RESULTS (OSUNA) OBJECTIVE FINDINGS , Pulse: 68, , BP: 117/69 NST Indication(s): Gestational diabetes Type 2 DM on insulin, Chronic HTN, AMA Uterine Irritability: No Contractions: Not present OBJECTIVE FINDINGS Movement: Present Monitoring Mode: External Baseline: 130 BPM Variability: Moderate Decelerations: None Accelerations: Yes OTHER INFORMATION Reactive NST Earl Cuevas DO us Sukhdev Gutierrez MD [facility] ORDERABLES Final Result * Biophysical Profile w NST (01/18/2025 7:27 AM CDT) Only the most recent of4 resultswithin the time period is included. Linked Results Indication ======== Pre-existing type 2 diabetes mellitus, in Chronic hypertension (CHTN) complicating Maternal obesity complicating , class 1 (BMI 30.0 - 34.9) Advanced maternal age (AMA), multigravida Complete placenta previa NOS or without hemorrhage History ====== OB History 4. Para 2 [id number] 1. live 2019. Gest. age 39 w + 0 d. Weight 3,572 g. Sex of child: female. Details: 2. miscarriage 2020 3. live 2022. Gest. age 39 w + 5 d. Weight 4,365 g. Sex of child: male. Details: Lab Tests Test Date Result NIPT Low risk, Female Maternal Assessment Physical Exam Height 170 cm, 5 ft 7 in. Weight 117 kg, 258 lb. Initial weight 98 kg, 216 lb. BMI 40.41 kg/m . Initial BMI 33.83 kg/m . Weight gain 19 kg, 42 lb Method ====== Transabdominal ultrasound, Transabdominal ultrasound examination. View: Limited by late gestational age, maternal body habitus, and position. ========= Osuna . Number of fetuses: 1 Dating ====== Date Details Gest. age DAMIAN LMP 05/14/2024 35 w + 4 d 02/18/2025 Stated DAMIAN 35 w + 4 d 02/18/2025 Assigned dating based on the LMP, selected on 08/04/2024 35 w + 4 d 02/18/2025 General Evaluation Cardiac activity present. FHR 135 bpm. Presentation: cephalic Placenta: Placental site: posterior, left lateral. Complete Placenta Previa Amniotic Fluid Assessment === Amount of AF: normal MVP 8.2 cm. BAYRNO 24.1 cm. Q1 6.5 cm, Q2 3.7 cm, Q3 5.8 cm, Q4 8.2 cm Biophysical Profile 2: breathing movements 2: Gross body movements 2: tone 2: Amniotic fluid volume NST: reactive 10 Biophysical profile score Non Stress Test NST interpretation: reactive. Baseline FHR 125 bpm. Baseline variability: moderate. Accelerations: present. Decelerations: absent. Uterine activity: absent Biometry BPD 82.9 mm 33w 2d 6% Hadlock HC 314.4 mm 35w 2d 14% Hadlock AC 317.9 mm 35w 5d 63% Hadlock Femur 71.3 mm 36w 4d 70% Hadlock Humerus 60.5 mm 35w 0d 56% Mohini HC / AC 0.99 Weight Calculation: EFW 2,724 g 50% Hadlock EFW (lb,oz) 6 lb 0 oz EFW by Hadlock ([id number]) appropriate Growth Overview Exam date GA BPD [...] 60% 64.5 54% 59.9 96% 2095 49% 01/18/2025 35w 4d 82.9 6% 314.4 14% 317.9 63% 71.3 70% 60.5 56% 2724 50% Anatomy The following structures appear normal: Abdomen Stomach. Kidneys. Bladder. sex: female. Impression ========= Single, live, intrauterine at 35w 4d. The growth is appropriate. The amniotic fluid volume is normal. The biophysical profile is 10/10. Complete previa again noted transabdominally. Comment ======== ultrasound alone cannot detect all structural, genetic, or functional , placental, or maternal abnormalities Follow-up ======== scheduled for January 25 - while there has not been sonographic evidence of placenta accreta her a prior risk is 3%. Therefore (as in all deliveries) hemorrhage should be managed aggressively and appropriately. Coding ====== Diagnoses O09.523: Supervision of elderly multigravida O99.213, E66.811: Obesity complicating , class 1 (BMI 30.0 - 34.9) O10.013, I10: Pre-existing essential hypertension complicating , Essential (primary) hypertension O24.113: Pre-existing type 2 diabetes mellitus, in O44.03: Complete placenta previa NOS or without hemorrhage Z36.2: Encounter for other screening follow-up Procedures 16944: [place] [address]: Biophysical Profile W NST LEVELOCK PACS Anatomical Region Laterality Modality Other 01/18/2025 7:27 AM CDT Sukhdev Gutierrez MD [facility] ORDERABLES Edited Result - Final * [...] History ====== OB History 4. Para 2 [id number] 1. live 2019. Gest. age 39 w [...] Transabdominal and transvaginal ultrasound. View: Sufficient ========= Osuna . Number of fetuses: 1 Dating ====== [...] 3 lb 1 oz EFW by Hadlock ([id number]) appropriate Growth Overview Exam date GA BPD [...] Z36.2: Encounter for other screening follow-up Procedures 49844: [place] [address]: [place] Preg Uterus Transvaginal [employer] PACS Anatomical Region Laterality Modality Other 12/01/2024 1:55 PM CDT Sukhdev Gutierrez MD [facility] ORDERABLES Edited Result - Final * [...] 11/25/2024 Exam Date/Time: 11/25/2024 8:31 AM Site: [facility] Current Location: CARE EStaffOrdering Provider: Michelle Roman Interpreting Physician: Citlali Badillo MD Veterinary Pathologist: Jaswinder Garza [facility] Study Info Procedure: ECHO COMPLETE CG Indications: O24.111 - Pre-existing type 2 diabetes mellitus during in first trimester (HCC) Maternal Gestational Status GA by EDC: 27 wks , 6 days EDC: 02/18/2025 Type: Osuna Age: 34 yrs Lie: Transverse Summary * [...] 11/25/2024 Exam Date/Time: 11/25/2024 8:31 AM Site: [facility] Current Location: CARE EStaffOrdering Provider: Michelle Roman Interpreting Physician: Citlali Badillo MD Veterinary Pathologist: Jaswinder Garza [facility] Study Info Procedure: ECHO COMPLETE CG Indications: O24.111 - Pre-existing type 2 diabetes mellitus during infirst trimester (HCC) Maternal Gestational Status GA by EDC: 27 wks , 6 days EDC: 02/18/2025 Type: Osuna Age: 34 yrs Lie: Transverse Summary * [...] MD on 11/25/2024 11:04 AM Michelle Roman EMBEDDED DEVELOPER-MORTUARY BEAUTICIAN ECHO CUPID [facility] al Result from Last 3 Months Insurance ANTH Care Teams Exercise Scientist Relationship Specialty Start Date End Date Eliu Galloway MD [address] [place] [address] [address] [place] [address] PCP - General 02/14/21
--- OUTSIDE RECORDS SUMMARY | 2025-01-24 09:39 | XMS_ITS | Clinical Summary ---
Author Organization [facility] Address [address] [facility] [address] [place] [address] Phone Care Team Providers Care Powder Truck Driver Name Role Phone Gavino Mendozaelle Tiara INDUSTRIAL ANALYST Primary Care Provider + Allergies No known [...] 05/04/2024 Assessment & Plan (05/04/2024 9:24 AM SONAR WATCHSTANDER): Referral from Dr. Goldstein/ Dr. Trejo [facility] Good ocular health Lattice degeneration OS Elevated [...] of surgery. Same day exam/surgery LASIK [facility] [place] [facility] In House Discussed lattice and symptoms of RD Social History Tobacco Use Types Packs/Day Years Used Date Smoking Tobacco: Never Smokeless Tobacco: Never Tobacco Cessation:Counseling Given: Not Answered Comments Unknown Sex and Gender Information Value Date Recorded Sex Assigned at Not on file Legal Sex Female 7:20 AM SONAR WATCHSTANDER Gender Identity Female 05/03/2024 11:01 AM SONAR WATCHSTANDER Sexual Orientation Straight 05/03/2024 11 :01 AM SONAR WATCHSTANDER Obstetrics History Plan of Treatment Health Maintenance [...] patient's age to complete this topic Insurance [employer] [facility] Care Teams Powder Truck Driver Relationship Specialty Start Date End Date Cecily Mendoza NP PCP - General Nurse Practitioner 05/04/24
--- OUTSIDE RECORDS SUMMARY | 2025-01-24 09:39 | XMS_ITS | Clinical Summary ---
Author Organization [facility] Address [address] [place] [address] Phone Care Team Providers Care Sustainability Communicator Name Role Phone Unavailable Primary Care Provider [...] Abstract 11/29/2024 10:00 AM CDT Video Visit [facility] Maternal and Medicine - Medical [facility] [address] [facility] [address], [place] [address] with type 2 diabetes mellitus in third trimester (Primary Dx); 28 weeks gestation of 11/29/2024 Chart Note [facility] [place] Maternal and Medicine - Medical [place] [facility] [address], [place] [address] Diabetes 11/23/2024 Abstract [facility] [place] Maternal and Medicine - Medical [place] [facility] [address] [facility] [address], [place] [address] Gisela Ferguson RN 11/23/2024 Abstract [facility] [place] Maternal and Medicine - Medical [place] [address] [facility] [address], [place] [address] Gisela Ferguson, RN from Last [...]
--- OUTSIDE RECORDS SUMMARY | 2025-01-24 09:39 | XMS_ITS | Clinical Summary ---
Author Organization [facility] Address [address] [place] [address] Care Team Providers Care Bevel Face Stoner And Polisher Name Role Phone Luke Olson MD Primary Care Provider [phone] Allergies No known active allergies Medications metFORMIN [...] patient's age to complete this topic Insurance [facility] Care Teams Bevel Face Stoner And Polisher Relationship Specialty Start Date End Date Luke Olson MD [address] [place] [phone] PCP - General FAMILY PRACTICE 12/06/22
[2025-01-24 10:07] LABS: Hematocrit 33.4 % (37.0-47.0); Hemoglobin 11.0 g/dL (12.0-15.0); Mean Corpuscular HGB Conc 32.9 g/dl (32-36); Mean Corpuscular Hemoglobin 29.3 pg (26-34); Mean Corpuscular Volume 89.1 fl (80-100); Platelet Count Result 195 k/mm3 (150-375); Red Blood Count 3.75 M/mm3 (4.2-5.4); White Blood Count 9.2 K/mm3 (4.5-10.0)
[2025-01-24 10:57] LABS: Syphilis IgG/IgM Antibody Non-Reactive (Nonreactive)
== END 2025-01-24 09:02 | disposition home or self-care (01) ==
LOC: ANHLAB 09:03
PROVIDERS: PCP Nurse Practitioner Family; Visit Provider Obstetrics & Gynecology
DX: Z01.812 Encounter for preprocedural laboratory examination (principal); W19.XXXA Unspecified fall, initial encounter
CPT/HCPCS: 36415; 85027; 86593; 86850; 86900; 86901

== ENCOUNTER 2025-01-24 12:30 | Observation (INO) | payer BC, SELFPAY ==
[2025-01-24 13:01] VITALS: BP 115/62; PULSE 73
[2025-01-24 13:16] VITALS: BP 113/58; PULSE 70
[2025-01-24 13:30] VITALS: BP 116/68; PULSE 67
--- OUTSIDE RECORDS SUMMARY | 2025-01-24 13:31 | XMS_ITS | Clinical Summary ---
Author Organization [facility] Address [address] [place] [address] Phone Care Team Providers Care Equipment Analyst Name Role Phone Unavailable Primary Care Provider [...] Abstract 11/29/2024 10:00 AM CDT Video Visit [facility] Maternal and Medicine - Medical [facility] [address] [facility] [address] [address] with type 2 diabetes mellitus in third trimester (Primary Dx); 28 weeks gestation of 11/29/2024 Chart Note [facility] Maternal and Medicine - Medical [place] [facility] [address] [facility] [address] [address] Diabetes 11/23/2024 Abstract [facility] Maternal and Medicine - Medical [place] [facility] [address] [facility] [address] [address] Gisela Ferguson RN 11/23/2024 Abstract [facility] Maternal and Medicine - Medical [place] [facility] [address] [facility] [address] [address] Gisela Ferguson, RN from Last [...]
--- OUTSIDE RECORDS SUMMARY | 2025-01-24 13:31 | XMS_ITS | Clinical Summary ---
Author Organization [facility] Address [address] [facility] [address] [place] [address] Phone Care Team Providers Care Banquet Attendant Name Role Phone Gavino Mendozaelle Tiara SALES REPRESENTATIVE DOOR TO DOOR Primary Care Provider + Allergies No known [...] 05/04/2024 Assessment & Plan (05/04/2024 9:24 AM MANAGER PRODUCE): Referral from Dr. Goldstein/ Dr. Trejo [facility] Good ocular health Lattice degeneration OS Elevated [...] of surgery. Same day exam/surgery LASIK [facility] [place] Goal In House Discussed lattice and symptoms of RD Social History Tobacco Use Types Packs/Day Years Used Date Smoking Tobacco: Never Smokeless Tobacco: Never Tobacco Cessation:Counseling Given: Not Answered Comments Unknown Sex and Gender Information Value Date Recorded Sex Assigned at Not on file Legal Sex Female 7:20 AM MANAGER PRODUCE Gender Identity Female 05/03/2024 11:01 AM MANAGER PRODUCE Sexual Orientation Straight 05/03/2024 11 :01 AM MANAGER PRODUCE Obstetrics History Plan of Treatment Health Maintenance [...] patient's age to complete this topic Insurance [employer] [facility] Address: [address] [place] [address] Care Teams Banquet Attendant Relationship Specialty Start Date End Date Cecily Mendoza NP PCP - General Nurse Practitioner 05/04/24
--- OUTSIDE RECORDS SUMMARY | 2025-01-24 13:31 | XMS_ITS | Clinical Summary ---
Author Organization [facility] Address [address] [place] [address] Care Team Providers Care Orchid Transplanter Name Role Phone Luke Olson MD Primary Care Provider [phone] Allergies No known active allergies Medications metFORMIN [...] patient's age to complete this topic Insurance [facility] Care Teams Orchid Transplanter Relationship Specialty Start Date End Date Luke Olson MD [address] [place] [id number] PCP - General FAMILY PRACTICE 12/06/22
--- OUTSIDE RECORDS SUMMARY | 2025-01-24 13:31 | XMS_ITS | Clinical Summary ---
Author Organization [facility] Address [address] [place] [address] Care Team Providers Care Educational Adviser Name Role Phone Eliu Galloway MD Primary Care Provider Source Comments [facility],non-owned Affiliates and Associated Physician Practices is amultiple site organization consisting of ambulatory clinics and hospital sitesin [place], [place], [place] and [place]. This disclosure is being madepursuant to the Care Everywhere program and may not contain all information available regarding this patient. Last updated 18.[employer] [facility] Allergies No known active allergies Medications * [...] Glucagon (Baqsimi One Pack) 3 MG/DOSE POWD [place] 1 Each into the nose as needed For emergency use only 1 Each 5 Active aspirin EC (Ecotrin) 81 MG tablet Take 2 (two) tablets by mouth once daily Active docusate sodium (Colace) 100 MG capsuleIndicat ions:Constipat ion Take 1 (one) capsule by mouth once daily Reasons: Constipation Active Insulin Pen Needle (Pen Ceylon) 32G X 4 MM MISCIndication s:Pre-existing type [...] 2 diabetes mellitus during in first trimester ([facility]) Use 1 (one) Each once daily 100 Each 11 5 Active blood glucose (JOHN CONTOUR NEXT TEST) test stripIndicatio ns:Pre-existin g type 2 diabetes mellitus during in first trimester ([facility]) Use 1 (one) strip 4 times daily Test blood sugar fasting and 1 hour after breakfast, lunch and dinner. 125 strip 5 5 Active Active Problems Problem Noted Date Diagnosed Date Placenta previa in third trimester 12/01/2024 Advanced maternal age in multigravida, first [facility] 08/02/2024 Pre-existing type 2 diabetes mellitus during in first trimester 08/02/2024 Hypertension affecting in first [facility] 08/02/2024 11 weeks gestation of 08/02/2024 Estimated Date of Delivery Comme nts Yes 02/18/2025 Based on last me nstrual period of 05/14/2024 Encounters Date Type Department Care Team Description 01/21/2025 8:53 AM CDT - 01/21/2025 11:59 PM CDT Hospital Encounter [facility] [address] [place] [address] [phone] Earl Cuevas DO HOUSE RN Discharge Disposition: Home or Self Care 01/18/2025 7:25 AM CDT - 01/18/2025 11:59 PM CDT Hospital Encounter [facility] [address] [place] [address] [phone] Best Montague MD Discharge Disposition: Home or Self Care 01/18/2025 7:25 AM CDT - 01/18/2025 11:59 PM CDT Hospital Encounter [facility] [address] [place] [address] [phone] Best Montague MD HOUSE RN Discharge Disposition: Home or Self Care 01/14/2025 8:11 AM CDT - 01/14/2025 11:59 PM CDT Hospital Encounter [facility] [address] [place] [address] [phone] Dimas Barnes MD Discharge Disposition: Home or Self Care 01/10/2025 8:56 AM CDT - 01/10/2025 11:59 PM CDT Hospital Encounter [facility] [address] [place] [address] 46941 Kirti Bui MD Discharge Disposition: Home or Self Care 01/10/2025 8:56 AM CDT - 01/10/2025 11:59 PM CDT Hospital Encounter [facility] [address] [place] [address] [phone] Kirti Bui MD Discharge Disposition: Home or Self Care 01/07/2025 8:14 AM CDT - 01/07/2025 11:59 PM CDT Hospital Encounter [facility] [address] [place] [address] [phone] Dimas Barnes MD Discharge Disposition: Home or Self Care 01/04/2025 8:16 AM CDT - 01/04/2025 11:59 PM CDT Hospital Encounter [facility] [address] [place] [address] [phone] Dimas Barnes MD Discharge Disposition: Home or Self Care 01/04/2025 8:15 AM CDT Hospital Encounter [facility] [address] [place] [address] Dimas Barnes MD Discharge Disposition: Home or Self Care 12/29/2024 9:45 AM CDT - 12/29/2024 11:59 PM CDT Hospital Encounter [facility] [address] [place] [address] [phone] Coral Dias MD Discharge Disposition: Home or Self Care 12/29/2024 8:51 AM CDT - 12/29/2024 9:44 AM CDT Hospital Encounter [facility] [address] [place] [address] [phone] Coral Dias MD Discharge Disposition: Home or Self Care 12/13/2024 Telephone [facility] [address] [place] [address] [phone] Lizbeth Dias, RN Refill Request (Patient emailed for refill of blood glucose test strips and lancets. Refill orders placed. ) 12/13/2024 Orders Only Maternal & Care at [facility] [address] [facility] , [address] [place] [phone] Kacey Buchanan, CHRIS/LD Pre-existing type 2 diabetes mellitus during in first trimester (HCC) 12/13/2024 Orders Only [facility] [address] [place] [address] [phone] Lizbeth Dias RN Pre-existing type 2 diabetes mellitus during in first trimester (HCC) 12/01/2024 12:44 PM CDT - 12/01/2024 11:59 PM CDT Hospital Encounter [facility] [address] [place] [address] [phone] Coral Dias MD Discharge Disposition: Home or Self Care 11/25/2024 8:15 AM CDT - 11/25/2024 11:59 PM CDT Hospital Encounter [facility] [place] [address] [place] [phone] Michelle Roman, WELFARE INVESTIGATOR-LOGISTICS PLANNING ENGINEER Citlali Badillo MD Discharge Disposition: Home or Self Care 11/25/2024 8:13 AM CDT - 11/25/2024 8:14 AM CDT Hospital Encounter [facility] [place] [address] [place] [address] Citlali Badillo MD 11/15/2024 Travel 11/03/2024 8:54 AM CDT - 11/03/2024 11:59 PM CDT Hospital Encounter [facility] [address] [place], [place] [phone] Coral Dias MD Discharge Disposition: Home or [...] trimester (HCC) Encounter for other screening follow-up ([facility]) 34 weeks gestation of ([facility]) Placenta previa in third trimester ([facility]) BIOPHYSICAL PROFILE W NST Routine 01/18/2025 7:27 [...] Earl Cuevas DO us Sukhdev Gutierrez MD [facility] ORDERABLES Final Result * Biophysical Profile [...] History ====== OB History 4. Para 2 [id number] 1. live 2019. Gest. age 39 w [...] Amount of AF: normal MVP 8.2 cm. BAYRON 24.1 cm. Q1 6.5 cm, Q2 3.7 [...] 6 lb 0 oz EFW by Hadlock ([id number]) appropriate Growth Overview Exam date [place] BPD [...] Z36.2: Encounter for other screening follow-up Procedures 63307: [place] [address]: Biophysical Profile W NST MINTO PACS Anatomical Region Laterality Modality Other 01/18/2025 7:27 AM CDT Sukhdev Gutierrez MD [facility] ORDERABLES Edited Result - Final * [...] History ====== OB History 4. Para 2 [id number] 1. live 2019. Gest. age 39 w [...] 3 lb 1 oz EFW by Hadlock ([id number]-FL) appropriate Growth Overview Exam date [place] BPD [...] Z36.2: Encounter for other screening follow-up Procedures 69203: [place] [address]: US Preg Uterus Transvaginal Labs PACS Anatomical Region Laterality Modality Other 12/01/2024 1:55 PM CDT Sukhdev Gutierrez MD [facility] ORDERABLES Edited Result - Final * [...] 11/25/2024 Exam Date/Time: 11/25/2024 8:31 AM Site: [facility] Current Location: CARE EStaffOrdering Provider: Michelle Roman Interpreting Physician: Citlali Badillo MD Firearms Model Maker: Jaswinder Garza [facility] Study Info Procedure: ECHO COMPLETE [...] 11/25/2024 Exam Date/Time: 11/25/2024 8:31 AM Site: [facility] Current Location: CARE EStaffOrdering Provider: Micehlle Roman Interpreting Physician: Citlali Badillo MD Firearms Model Maker: Jaswinder Garza [facility] Study Info Procedure: ECHO COMPLETE [...] MD on 11/25/2024 11:04 AM Michelle Roman WELFARE INVESTIGATOR-LOGISTICS PLANNING ENGINEER ECHO C[facility] al Result from Last 3 Months Insurance ANTH Care Teams Educational Adviser Relationship Specialty Start Date End Date Eliu Galloway MD [address] [place] [address] [address] [place] [address] PCP - General 02/14/21
[2025-01-24 13:45] VITALS: BP 115/69; PULSE 69
[2025-01-24 14:00] VITALS: BP 116/71; PULSE 68
--- NOTE | 2025-02-11 03:02 | PM.OBTRLD ---
OB - Triage/Final Diagnosis Visit Information Comments/Additional reasons for admission: I have assessed the risk for this patient, Latisha Laurent, and determined that she would benefit from observation care. Final Diagnosis (1) Fall: Code(s): W19.XXXA - Unspecified fall, initial encounter Status: Acute
== END 2025-01-24 14:12 | disposition home or self-care (01) ==
PROVIDERS: Admitting Provider Obstetrics & Gynecology; PCP Nurse Practitioner Family; Visit Provider Obstetrics & Gynecology
DX: O9A.213 Injury, poisoning and certain other consequences of external causes complicating pregnancy, third trimester (principal); T14.90XA Injury, unspecified, initial encounter; Z3A.36 36 weeks gestation of pregnancy; W19.XXXA Unspecified fall, initial encounter
CPT/HCPCS: G0378; G0379

== ENCOUNTER 2025-01-25 09:47 | Inpatient (IN) | payer BC, SELFPAY ==
[2025-01-25] VITALS (46 sets, daily range): BP systolic 110–147; BP diastolic 54–95; PULSE 48–76; RESP 15–21; TEMP 36.3–37.1; O2SAT 95–100; BMI 40.7; BMI 40.4
--- NOTE | 2025-01-25 09:05 | PM.IMHP ---
H&P: HPI History of Present Illness Date/Time: 01/25/25 09:05 Chief Complaint: Here for C section Narrative: 35 y/o at 36 4/7 weeks with complete previa, Type 2 DM, and CHTN, here for primary . Her care has been comanaged with MFM. She has had good management of bp and of blood glucose. She has no vaginal bleeding. Review of Systems Review of Systems: All systems reviewed & are unremarkable except as noted in HPI and below PMFSH Past Medical History Medical History Hospital discharge follow-up Obesity Abdominal pain Encounter to establish care with new doctor Weight loss counseling, encounter for Diabetes type 2, controlled Anemia Obesity Gestational diabetes Surgical History Surgical History Hx of tonsillectomy Family History Family History Father Renal cell carcinoma Hypertension Diabetes 1.5, managed as type 2 Mother Hypertension Social History Social History Social History: 05/27/24 very confident with medical forms Smoking status: Never smoker Alcohol intake: current Substance use: never Do You Feel Safe in your Home?: Yes Lack of Transportation: No Lack of Food: Never True Current Housing: I Have Housing Concerned About Future Housing: No Difficulty Paying Gas/Electric Bills: No Difficulty Paying for Meds: No Currently Unemployed: No Education: Bachelor's Degree Difficulty w/ Childcare or Family Care: No Living arrangements: with family Occupation/Education: occupation 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 [employer] care concerns: No Agree to blood products: Yes Meds Home Medications and Allergies Home Medications ?Medication ?Instructions ?Recorded ?Confirmed ?Type insulin glargine 100 unit/mL (3 28 unit subcut QAM 09/07/24 01/22/25 History mL) subcutaneous pen (Lantus Solostar U-100 Insulin) lancets (Microlet Lancet) 09/07/24 01/17/25 History docosahexaenoic acid 200 mg 200 mg PO DAILY 07/01/25 10/04/25 History capsule ( DHA) nifedipine 30 mg tablet,extended 30 mg PO DAILY #90 tabs 11/02/24 01/22/25 Rx release 24 hr sertraline 50 mg tablet 50 mg PO DAILY #30 tabs 12/03/24 01/22/25 Rx docusate sodium 100 mg capsule 100 mg PO DAILY 01/11/25 01/22/25 History (Dulcolax Stool Softener (docusate)) insulin glargine 100 unit/mL (3 76 unit subcut QPM 01/11/25 01/22/25 History mL) subcutaneous pen (Lantus Solostar U-100 Insulin) ferrous sulfate 325 mg (65 mg 325 mg PO DAILY 01/22/25 01/22/25 History iron) tablet (Feosol) Allergies Allergy/AdvReac Type Severity Reaction Status Date / Time No Known Allergies Allergy Verified 01/22/25 13:27 Exam Const: Other: Well-developed, well-nourished female in no acute distress. Neck: Other: Neck: Trachea midline, no thyromegaly or masses. Resp: Other: Lungs: Normal respiratory effort. Clear to auscultation bilaterally. Cardio: Other: Heart: Regular rate and rhythm with normal S1-S2. GI: Other: ABD: Soft, nontender, nondistended, gravid. No guarding or rebound tenderness. No hepatosplenomegaly. heartbeat auscultated. : Other: Cervix: not examined. Back/Spine/Pelvis: Other: Back: No CVA tenderness. Skin: Other: Skin: No lesions, rashes or ulcers noted. Extrem: Other: Extremities: nontender with no edema Psych: Other: Mental status grossly normal, with normal mood and affect. Assessment and Plan Assessment and plan (1) : Qualifiers: Weeks of gestation: 35 weeks Qualified Code(s): Z3A.35 - 35 weeks gestation of Code(s): Z34.90 - Encounter for supervision of normal , unspecified, unspecified trimester Status: Acute Assessment and Plan: A: IUP at 36 4/7 weeks with complete previa, Type 2 DM, and CHTN. P: Offered primary . We are timing delivery per current ACOG recommendations. MFGlenroy has recommended against steroids, in light of her diabetes. She understands risks of surgery to include risks of anesthesia, risks of pain, infection, bleeding, blood products, thromboembolic phenomena and damage to adjacent structures such as bowel, bladder, ureters, blood vessels and nerves. She understands risks associated with prematurity. She understands all these risks and elects to proceed with primary delivery. (2) Diabetes in : Qualifiers: Diabetes in type: pre-existing, type 2 Trimester: third trimester Qualified Code(s): O24.113 - Pre-existing type 2 diabetes mellitus, in , third trimester Code(s): O24.919 - Unspecified diabetes mellitus in , unspecified trimester Status: Acute (3) Chronic hypertension affecting : Code(s): O10.919 - Unspecified pre-existing hypertension complicating , unspecified trimester Status: Acute
--- OUTSIDE RECORDS SUMMARY | 2025-01-25 10:39 | XMS_ITS | Clinical Summary ---
Author Organization [facility] Address [address] [place] [address] Phone Care Team Providers Care Supervisor Sewing Department Name Role Phone Unavailable Primary Care Provider [...] Abstract 11/29/2024 10:00 AM CDT Video Visit [facility] Maternal and Medicine - Medical [facility] [address] [facility] [address], [place] [address] with type 2 diabetes mellitus in third trimester (Primary Dx); 28 weeks gestation of 11/29/2024 Chart Note [facility]aternal and Medicine - Medical [facility] [address], [place] [address] Diabetes 11/23/2024 Abstract [facility] Maternal and Medicine - Medical [facility] [address] [facility] [address], [place] [address] Gisela Ferguson RN 11/23/2024 Abstract [facility]aternal and Medicine - Medical [facility] [address] [facility] [address], [place] [address] Gisela Ferguson, RN from Last [...]
--- OUTSIDE RECORDS SUMMARY | 2025-01-25 10:39 | XMS_ITS | Clinical Summary ---
Author Organization [facility] Address [address] [place] [phone] Phone Care Team Providers Care Log Cut Off Sawyer Name Role Phone Gavino Mendozaelle Tiara MICROFILM CAMERA OPERATOR Primary Care Provider + Allergies No known [...] 05/04/2024 Assessment & Plan (05/04/2024 9:24 AM COMMERCIAL AGENT): Referral from Dr. Goldstein/ Dr. Trejo [facility] Good ocular health Lattice degeneration [...] of surgery. Same day exam/surgery LASIK [facility] [place] [facility] Discussed lattice and symptoms of RD Social History Tobacco Use Types Packs/Day Years Used Date Smoking Tobacco: Never Smokeless Tobacco: Never Tobacco Cessation:Counseling Given: Not Answered Comments Unknown Sex and Gender Information Value Date Recorded Sex Assigned at Not on file Legal Sex Female 7:20 AM COMMERCIAL AGENT Gender Identity Female 05/03/2024 11:01 AM COMMERCIAL AGENT Sexual Orientation Straight 05/03/2024 11 :01 AM COMMERCIAL AGENT Obstetrics History Plan of Treatment Health Maintenance [...] patient's age to complete this topic Insurance [employer] CHOICE Care Teams Log Cut Off Sawyer Relationship Specialty Start Date End Date Cecily Mendoza NP PCP - General Nurse Practitioner 05/04/24
--- OUTSIDE RECORDS SUMMARY | 2025-01-25 10:39 | XMS_ITS | Clinical Summary ---
Author Organization [facility] Address [address] [place] [phone] Care Team Providers Care Power Plant Operations Manager Name Role Phone Luke Olson MD Primary Care Provider [phone] Allergies No known active allergies Medications metFORMIN [...] patient's age to complete this topic Insurance [facility] Care Teams Power Plant Operations Manager Relationship Specialty Start Date End Date Luke Olson MD [address] [place] [id number] PCP - General FAMILY PRACTICE 12/06/22
--- OUTSIDE RECORDS SUMMARY | 2025-01-25 10:39 | XMS_ITS | Clinical Summary ---
Author Organization [facility] Address [address] [place] [address] Care Team Providers Care Conveyor Console Operator Name Role Phone Eliu Galloway MD Primary Care Provider [phone] Source Comments [facility] [employer],non-owned Affiliates and Associated Physician Practices is amultiple site organization consisting of ambulatory clinics and hospital sitesin [place], [place], [place] and [place]. This disclosure is being madepursuant to the Care Everywhere program and may not contain all information available regarding this patient. Last updated 18.[facility] Allergies No known active allergies Medications * [...] Glucagon (Baqsimi One Pack) 3 MG/DOSE POWD [place] 1 Each into the nose as needed For emergency use only 1 Each 5 Active aspirin EC (Ecotrin) 81 MG tablet Take 2 (two) tablets by mouth once daily Active docusate sodium (Colace) 100 MG capsuleIndicat ions:Constipat ion Take 1 (one) capsule by mouth once daily Reasons: Constipation Active Insulin Pen Needle (Pen [place]) 32G X 4 MM MISCIndication s:Pre-existing type [...] 2 diabetes mellitus during in first trimester ([facility]) Use 1 (one) Each once daily 100 Each 11 5 Active blood glucose (JOHN CONTOUR NEXT TEST) test stripIndicatio ns:Pre-existin g type 2 diabetes mellitus during in first trimester ([facility]) Use 1 (one) strip 4 times daily Test blood sugar fasting and 1 hour after breakfast, lunch and dinner. 125 strip 5 5 Active Active Problems Problem Noted Date Diagnosed Date Placenta previa in third trimester 12/01/2024 Advanced maternal age in multigravida, first [facility] 08/02/2024 Pre-existing type 2 diabetes mellitus during in first trimester 08/02/2024 Hypertension affecting in first [facility] 08/02/2024 11 weeks gestation of 08/02/2024 Estimated Date of Delivery Comme nts Yes 02/18/2025 Based on last me nstrual period of 05/14/2024 Encounters Date Type Department Care Team Description 01/21/2025 8:53 AM CDT - 01/21/2025 11:59 PM CDT Hospital Encounter [facility] [address] [place] [address] [phone] Earl Cuevas DO SALES ORDER COORDINATOR Discharge Disposition: Home or Self Care 01/18/2025 7:25 AM CDT - 01/18/2025 11:59 PM CDT Hospital Encounter [facility] [address] [place] [address] [phone] Best Montague MD Discharge Disposition: Home or Self Care 01/18/2025 7:25 AM CDT - 01/18/2025 11:59 PM CDT Hospital Encounter [facility] [address] [place] [address] [phone] Best Montague MD SALES ORDER COORDINATOR Discharge Disposition: Home or Self Care 01/14/2025 8:11 AM CDT - 01/14/2025 11:59 PM CDT Hospital Encounter [facility] [address] [place] [address] [phone] Dimas Barnes MD Discharge Disposition: Home or Self Care 01/10/2025 8:56 AM CDT - 01/10/2025 11:59 PM CDT Hospital Encounter [facility] [address] [place] [address] [phone] Kirti Bui MD Discharge Disposition: Home or Self Care 01/10/2025 8:56 AM CDT - 01/10/2025 11:59 PM CDT Hospital Encounter [facility] [address] [place] [address] [phone] Kirti Bui MD Discharge Disposition: Home or Self Care 01/07/2025 8:14 AM CDT - 01/07/2025 11:59 PM CDT Hospital Encounter [facility] [address] [place] [address] [phone] Dimas Barnes MD Discharge Disposition: Home or Self Care 01/04/2025 8:16 AM CDT - 01/04/2025 11:59 PM CDT Hospital Encounter [facility] [address] [place] [address] [phone] Dimas Barnes MD Discharge Disposition: Home or Self Care 01/04/2025 8:15 AM CDT Hospital Encounter [facility] [address] [place] [address] Dimas Barnes MD Discharge Disposition: Home or Self Care 12/29/2024 9:45 AM CDT - 12/29/2024 11:59 PM CDT Hospital Encounter [facility] [address] [place] [address] [phone] Coral Dias MD Discharge Disposition: Home or Self Care 12/29/2024 8:51 AM CDT - 12/29/2024 9:44 AM CDT Hospital Encounter [facility] [address] [place] [address] [phone] Coral Dias MD Discharge Disposition: Home or Self Care 12/13/2024 Telephone [facility] [address] [place] [address] [phone] Lizbeth Dias, RN Refill Request (Patient emailed for refill of blood glucose test strips and lancets. Refill orders placed. ) 12/13/2024 Orders Only Maternal & Care at [facility] [address] [facility] , [address] [place] [phone] Kacey Buchanan, CHRIS/LD Pre-existing type 2 diabetes mellitus during in first trimester (HCC) 12/13/2024 Orders Only [facility] [address] [place] [address] [phone] Lizbeth Dias RN Pre-existing type 2 diabetes mellitus during in first trimester (HCC) 12/01/2024 12:44 PM CDT - 12/01/2024 11:59 PM CDT Hospital Encounter [facility] [address] [place] [address] [phone] Coral Dias MD Discharge Disposition: Home or Self Care 11/25/2024 8:15 AM CDT - 11/25/2024 11:59 PM CDT Hospital Encounter [facility] [address] [place] [address] [phone] Michelle Roman, CUSTOMER SUPPORT AGENT-PHARMACY AIDE Citlali Badillo MD Discharge Disposition: Home or Self Care 11/25/2024 8:13 AM CDT - 11/25/2024 8:14 AM CDT Hospital Encounter [facility] [address] [place] [address] Citlali Badillo MD 11/15/2024 Travel 11/03/2024 8:54 AM CDT - 11/03/2024 11:59 PM CDT Hospital Encounter [facility] [address] [place], [place] [id number] Coral Dias MD Discharge Disposition: Home or [...] trimester (HCC) Encounter for other screening follow-up ([facility]) 34 weeks gestation of ([facility]) Placenta previa in third trimester ([facility]) BIOPHYSICAL PROFILE W NST Routine 01/18/2025 7:27 [...] Earl Cuevas DO us Sukhdev Gutierrez MD [facility] ORDERABLES Final Result * Biophysical Profile [...] History ====== OB History 4. Para 2 [id number] 1. live 2019. Gest. age 39 w [...] 6 lb 0 oz EFW by Hadlock ([id number]) appropriate Growth Overview Exam date [place] BPD [...] Z36.2: Encounter for other screening follow-up Procedures 96340: [place] [address]: Biophysical Profile W NST LAC COURTE OREILLES PACS Anatomical Region Laterality Modality Other 01/18/2025 7:27 AM CDT Sukhdev Gutierrez MD [facility] ORDERABLES Edited Result - Final * [...] History ====== OB History 4. Para 2 [id number] 1. live 2019. Gest. age 39 w [...] 3 lb 1 oz EFW by Hadlock ([id number]) appropriate Growth Overview Exam date [place] BPD [...] Z36.2: Encounter for other screening follow-up Procedures 44054: [place] [address]: [place] Preg Uterus Transvaginal Admetric PACS Anatomical Region Laterality Modality Other 12/01/2024 1:55 PM CDT Sukhdev Gutierrez MD [facility] ORDERABLES Edited Result - Final * [...] 11/25/2024 Exam Date/Time: 11/25/2024 8:31 AM Site: [facility] Current Location: CARE EStaffOrdering Provider: Michelle Roman Interpreting Physician: Citlali Badillo MD Dry Placer Machine Operator: Jaswinder Garza [facility] Study Info Procedure: ECHO COMPLETE CG [...] 11/25/2024 Exam Date/Time: 11/25/2024 8:31 AM Site: [facility] Current Location: CARE EStaffOrdering Provider: Michelle Roman Interpreting Physician: Citlali Badillo MD Dry Placer Machine Operator: Jaswinder Garza [facility] Study Info Procedure: ECHO COMPLETE CG [...] MD on 11/25/2024 11:04 AM Michelle Roman CUSTOMER SUPPORT AGENT-PHARMACY AIDE ECHO CUPID [facility] al Result from Last 3 Months Insurance ANTH Care Teams Conveyor Console Operator Relationship Specialty Start Date End Date Eliu Galloway MD [address] [place] [address] [address] [place] [address] PCP - General 02/14/21
[2025-01-25] MEDS: LACTATED RINGERS 1,000 ML 125 ML IV CONT ×2 (10:40→11:17)
[2025-01-25] MEDS: ACETAMINOPHEN 500 MG TABLET 1000 MG PO ×2 (10:41→18:43)
[2025-01-25] MEDS: DEXTROSE 50% 25 GM/50 ML SYRINGE IV PUSH ×2 (11:49→12:45)
--- NOTE | 2025-01-25 11:55 | LDADM ---
This patient, Latisha Laurent, was admitted to Labor/Delivery/Recovery 119 on 01/25/25 at 09:47. Plans for section, pain management and were discussed with patient. Patient/family oriented to hospital policies and general routines including ID bracelet, bed and alarms, visiting hours, pain management, procedures, bathroom and other care routines, personal items, smoking policy, room service/diet and guest tray routines, infant security routines, and visiting hours. Patient/Family are encouraged to report perceived risks to care and to ask questions if they do not understand what they are told or what they should do. See OBIX for further documentation.
--- NOTE | 2025-01-25 12:32 | WPDANESEPPF ---
Anes - Initial Pre Proc Eval Procedure: Operation Date: 01/25/25 12:00 Proposed Procedures p Primary Section - Sukhdev Gutierrez MD Date/Time: 01/25/25 12:32 Surgeon: Sukhdev Gutierrez MD Pre Op Diagnosis: C/S Patient Data Age: 35 Gender: F Height: 1.7 m Weight: 117 kg Last Vital Signs Temp 36.6 C 01/25/25 11:05 Pulse 76 01/25/25 11:06 BP 124/64 01/25/25 11:06 O2 Del Method Room Air 01/25/25 11:55 Allergies Allergy/AdvReac Type Severity Reaction Status Date / Time No Known Allergies Allergy Verified 01/25/25 12:02 Home Medications ?Medication ?Instructions ?Recorded ?Confirmed ?Type insulin glargine 100 unit/mL (3 28 unit subcut QAM 09/07/24 01/25/25 History mL) subcutaneous pen (Lantus Solostar U-100 Insulin) lancets (Microlet Lancet) 09/07/24 01/17/25 History docosahexaenoic acid 200 mg 200 mg PO DAILY 10/19/24 01/25/25 History capsule ( DHA) nifedipine 30 mg tablet,extended 30 mg PO DAILY #90 tabs 11/02/24 01/25/25 Rx release 24 hr sertraline 50 mg tablet 50 mg PO DAILY #30 tabs 12/03/24 01/25/25 Rx docusate sodium 100 mg capsule 100 mg PO DAILY 01/11/25 01/25/25 History (Dulcolax Stool Softener (docusate)) insulin glargine 100 unit/mL (3 76 unit subcut QPM 01/11/25 01/25/25 History mL) subcutaneous pen (Lantus Solostar U-100 Insulin) ferrous sulfate 325 mg (65 mg 325 mg PO DAILY 01/22/25 01/25/25 History iron) tablet (Feosol) Laboratory Tests 01/25/25 11:25 POC Capillary Glucose 51 L* mg/dl (65-105) Patient hx anesthesia problems: none Family hx anesthesia problems: none Results Review: All pre-operative results and documents have been reviewed as part of the pre-operative evaluation. [facility] Past Medical History Medical History Hospital discharge follow-up Obesity Abdominal pain Encounter to establish care with new doctor Weight loss counseling, encounter for Diabetes type 2, controlled Anemia Obesity Gestational diabetes Surgical History Surgical History Hx of tonsillectomy Family History Family History Father Renal cell carcinoma Hypertension Diabetes 1.5, managed as type 2 Mother Hypertension Social History Social History Social History: 05/27/24 very confident with medical forms Smoking status: Never smoker Alcohol intake: current Substance use: never Do You Feel Safe in your Home?: Yes Lack of Transportation: No Lack of Food: Never True Current Housing: I Have Housing Concerned About Future Housing: No Difficulty Paying Gas/Electric Bills: No Difficulty Paying for Meds: No Currently Unemployed: No Education: Bachelor's Degree Difficulty w/ Childcare or Family Care: No Living arrangements: with family Occupation/Education: occupation 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 Informed Consent: The patient's anesthetic plan and its attendant risks and benefits were discussed with the patient/family/POA. Questions were solicited and answers provided to the satisfaction of the patient/family/POA.
[2025-01-25] MEDS: ceFAZolin 2 GM in SODIUM CHLORIDE 0.9% IV 50 ML 100 ML IVPB (12:50)
[2025-01-25] MEDS: ONDANSETRON INJ 4 MG/2 ML VIAL IV PUSH (12:50)
[2025-01-25] MEDS: FAMOTIDINE 20 MG/2 ML VIAL IV PUSH (12:50)
--- NOTE | 2025-01-25 12:55 | WPDHPUPDATE1 ---
History and Physical Update Update Date/Time: 01/25/25 12:55 History and Physical has been reviewed, including an updated exam of the patient. There are NO changes in the patient's condition. Risks, benefits, and alternatives have been discussed and questions answered. Patient agrees to proceed with procedure.
--- NOTE | 2025-01-25 13:37 | S_PTH ---
PATIENT: Latisha Laurent LOC: ANHOB2 U#:[id number] AGE/SX: 35/F ROOM: 283 RE01/25/[address]: Sukhdev Gutierrez MD : 1990 BED: 00 DIS: 01/27/2025 SPEC #: [id number] RECD: 01/26/25 07:50 STATUS: CARMINE REClement #: [id number] KEIRA: 01/25/25 13:[address]: Sukhdev Gutierrez DEPT: [facility] Surgical RECD BY: Radha Rosa ENTERED: 01/26/25 07:50 SP TYPE: Surgical OTHR DR: Cecily Mendoza APRN Tissues: A - Placenta Procedures: Hematoxylin and Eosin Stain Gross and Microscopic Level 5
--- NOTE | 2025-01-25 14:16 | P.PCNOB_ITS ---
OB - Delivery Note Procedure Delivery date: 01/25/25 Pre-op diagnosis: Chronic Hypertension, Diabetes Mellitus and Placenta Previa Post-op Diagnosis: Same Induction method: None Delivery monitor: External FHT and External Uterine Procedure Performed: Primary Surgeon: Sukhdev Gutierrez MD Anesthesia type: Spinal Description of Procedure/Findings: Findings: Uterus, tubes and ovaries unremarkable. Placenta previa noted. Techniques: The patient was taken to the operating room where she was prepared and draped in the usual sterile fashion in dorsal supine position with a leftward tilt. She received cefazolin preoperatively. Spinal anesthesia was found to be adequate. A Pfannenstiel skin incision was made and carried through to the underlying layer of the fascia. The fascia was incised in the midline and the incision was extended laterally. The fascia was dissected free of the underlying rectus muscles. The rectus muscles were in the midline. The peritoneum was identified, tented up and entered sharply. The peritoneal incision was extended superiorly and inferiorly with good visualization of the bladder. The bladder blade was placed. The vesicouterine peritoneum was identified, tented up and entered sharply. The incision was extended laterally and the bladder flap was developed. The bladder blade was replaced. The uterus was then incised sharply in a transverse fashion along the lower uterine s egment. The incision was extended laterally. The infant's head was delivered atraumatically to the sterile field, followed by the body. The nose and mouth were bulb suctioned. After a delay, the cord was clamped and cut. The was handed off the field. Cord blood was collected. The placenta was removed manually and was passed off the field. The uterus was exteriorized and cleared of all clots and debris. The uterine incision was reapproximated using 0 Monocryl in a running, locked fashion. Excellent hemostasis resulted as did excellent reapproximation of the normal anatomy. The uterus was returned the abdomen. The pelvis was irrigated copiously with warmed normal saline. Rigorous hemostasis was assured. The fascial layer was reapproximated using 0 Vicryl in a running fashion. Interrupted sutures of 2-0 plain gut were used to reapproximate the subcutaneous tissue. The skin was closed with a running, subcuticular stitch of 4 0 Vicryl. Dermaflex was applied externally. Sponge, lap, needle and instrument counts were correct. The patient was taken to the recovery room in stable condition. The infant went to the nursery in stable condition. I was present and scrubbed the entire procedure. Specimen: Yes (Placenta, cord blood) Estimated Blood Loss: 1,145 Drains: Yes (Graf) Packing: No Pathology: Yes (Placenta) Complications: None Condition: Stable Disposition: PACU [place] Baby Date of : 01/25/25 Time of : 13:35 Gestational Age by Date: 35 Infant gender: Female presentation: vertex Placenta delivery description: Expressed and Normal Configuration Cord Vessel Description: 3 Vessels and Delayed Cord Clamping
--- NOTE | 2025-01-25 14:19 | PM.OBDSVD ---
DS: Admitting Diagnosis Discharge Date 01/27/25 Admitting Diagnosis IUP at 36 4/7 weeks Type 2 DM CHTN Complete placenta previa DS: Discharge Diagnosis Discharge Diagnosis (1) delivery delivered: Code(s): O82 - Encounter for delivery without indication Status: Acute (2) Diabetes type 2, controlled: Code(s): E11.9 - Type 2 diabetes mellitus without complications Status: Acute (3) Chronic hypertension affecting : Code(s): O10.919 - Unspecified pre-existing hypertension complicating , unspecified trimester Status: Acute OB - DS: Summary OB Procedures : NST OB Procedures Intrapartum: OB Procedures: : None Peripartum Data Procedures: Procedures Operation Date: 01/25/25 12:00 <No data on this case meets the specified criteria> Time Spent with Patient Time attestation: Total time spent providing and/or coordinating discharge services: DS: Data Data Completed and Pending Labs on day of discharge: Labs from last 24 hours 01/25/25 01/25/25 12:37 11:25 POC Capillary Glucose 62 L 51 L* Discharge Plan Discharge Attending physician on discharge: Sukhdev Gutierrez Discharging Clinician: Sukhdev Gutierrez Patient Disposition: Home Activity: may shower, may drive after 2 weeks and pelvic rest Diet: regular Wound Care Instructions: incision open to air Discharge Instructions: Call or return if temperature above 100.4? F, increased abdominal pain, increased vaginal bleeding or any new problems. Patient Language: Niuean Stand Alone Forms: General Discharge Information Follow-up/Referrals: Sukhdev Gutierrez MD [Physician, WOODWORKING MACHINE OPERATOR] - 4 Weeks Discharge Medications: New ibuprofen 600 mg tablet 600 mg PO Q6H PRN (Reason: cramps) Qty: 30 0RF oxycodone-acetaminophen [Percocet] 5-325 mg tablet 1 - 2 tablet PO Q6H PRN (Reason: pain) Qty: 30 0RF Continued DHA 200 mg capsule 200 mg PO DAILY ferrous sulfate [Feosol] 325 mg (65 mg iron) tablet 325 mg PO DAILY docusate sodium [Dulcolax Stool Softener (dss)] 100 mg capsule 100 mg PO DAILY nifedipine 30 mg tablet extended release 24hr 30 mg PO DAILY Qty: 90 1RF sertraline 50 mg tablet 50 mg PO DAILY Qty: 30 3RF Discontinued (DME) lancets [Microlet Lancet] Misc MISCELLANEOUS insulin glargine [Lantus Solostar U-100 Insulin] 100 unit/mL (3 mL) insulin pen 28 unit SUBCUT QAM insulin glargine [Lantus Solostar U-100 Insulin] 100 unit/mL (3 mL) insulin pen 76 unit subcut QPM Date of admission: 01/25/25 09:47 Primary Care Provider: Cecily Mendoza Admitting Provider: Sukhdev Gutierrez Attending physician on admission: Sukhdev Gutierrez Condition: Stable
[2025-01-25] MEDS: OXYTOCIN 30 UNITS/NS 500 ML 30 UNITS/500 ML BAG 125 UNITS IV CONT (14:47)
[2025-01-25] MEDS: LIDOCAINE 5% PATCH 1 PATCH TRANSDERM (18:43)
[2025-01-25] MEDS: KETOROLAC 15 MG/ML VIAL (*BKC) IV PUSH (18:43)
[2025-01-25] MEDS: DEXTROSE 5%/0.45% SOD CHL 1,000 ML 125 ML IV CONT (19:12)
[2025-01-26] MEDS: KETOROLAC 15 MG/ML VIAL (*BKC) IV PUSH ×2 (01:28→07:38)
[2025-01-26] MEDS: ACETAMINOPHEN 500 MG TABLET 1000 MG PO ×4 (01:28→21:50)
--- NOTE | 2025-01-26 01:46 | PC.NURSE ---
0140 - THis RN entered the patient's room to remove catheter and administer pain medications. After catheter was removed, this RN noted large clot on pad. Helene Almeida RN weighed the pad as 28g. This RN gave fundal massage, cleaned patient up, and got her to the restroom. Patient had small, quarter sized clot in toilet. Bleeding appears small to moderate at this time. This RN contacted Dr. Green and informed her of the above. Dr. Green stated to do the CBC ordered for 0500 and continue to monitor that fundus is firm
[2025-01-26 05:13] LABS: Hematocrit 30.0 % (37.0-47.0); Hemoglobin 9.5 g/dL (12.0-15.0); Immature Granulocyte Percent A 0.8 % (0-0.5); Lymphocytes Absolute Auto 1.79 K/mm3 (0.9-3.2); Mean Corpuscular HGB Conc 31.7 g/dl (32-36); Mean Corpuscular Hemoglobin 28.9 pg (26-34); Mean Corpuscular Volume 91.2 fl (80-100); Nucleated Red Blood Cells Absolute Auto 0.000 K/mm3 (0.0-0.012); Nucleated Red Blood Cells Perc 0.0 % (0.0-0.2); Platelet Count Result 180 k/mm3 (150-375); Red Blood Count 3.29 M/mm3 (4.2-5.4); White Blood Count 11.3 K/mm3 (4.5-10.0)
[2025-01-26 08:00] VITALS: BP 123/66; PULSE 59; RESP 16; TEMP 36.8; O2SAT 100
[2025-01-26] MEDS: SERTRALINE HCL 50 MG TABLET PO (09:10)
[2025-01-26] MEDS: DOCUSATE SODIUM 100 MG CAPSULE PO ×2 (09:10→21:50)
[2025-01-26] MEDS: oxyCODONE HCL (*CRX) 5 MG TAB IR PO ×2 (09:10→15:15)
[2025-01-26] MEDS: MULTIVIT/MIN/PREN/FOL AC/IRON TABLET 1 TAB PO (09:10)
--- NOTE | 2025-01-26 09:18 | P.PNOB_ITS ---
OB - PN: Subj Subjective Date/time seen: 01/26/25 09:18 Narrative: Pain OK. Tolerating diet. Baby was transferred, but is reportedly being weaned from vent. OB - PN: Obj Data Labs 01/26/25 03:19 Labs: Laboratory Results - last 24 hr 01/25/25 01/25/25 01/26/25 11:25 12:37 03:19 WBC 11.3 H RBC 3.29 L Hgb 9.5 L Hct 30.0 L MCV 91.2 MCH 28.9 MCHC 31.7 L RDW 12.9 Plt Count 180 MPV 9.8 Immature Gran % (Auto) 0.8 H Neut % (Auto) 74.6 H Lymph % (Auto) 15.8 L Glenn % (Auto) 7.5 Eos % (Auto) 1.1 Baso % (Auto) 0.2 Lymph # (Auto) 1.79 Glenn # (Auto) 0.9 H Eos # (Auto) 0.1 Baso # (Auto) 0.0 Abs Immat Gran (auto) 0.09 H Absolute Neuts (auto) 8.5 H Absolute Nucleated RBC 0.000 Nucleated RBC % 0.0 POC Capillary Glucose 51 L* 62 L OB - PN A/P Plan day: 1 Comments: A: POD#1, doing well. P: Routine care. May go visit baby on pass. Consider discharge tomorrow. Exam 2 Narrative: AVSS I/O OK ABD soft, nontender, fundus firm. Incision c/d/i. EXT nontender
--- NOTE | 2025-01-26 15:00 | PC.NURSE ---
Patient returned to unit from therapeutic day pass to visit at NICU
[2025-01-26 15:15] VITALS: BP 131/63; PULSE 77; RESP 18; TEMP 36.4; O2SAT 98
[2025-01-26] MEDS: IBUPROFEN 600 MG TABLET PO ×2 (15:15→21:50)
--- NOTE | 2025-01-26 15:29 | WPDANLDPN2 ---
Anes-Prog Note L&D Date/Time: 01/26/25 15:29 Comfortable throughout: section Neuraxial method: spinal Epidural/Spinal procedure site: clean & non-tender Neuro status: Neuro function grossly intact. Cardiovascular status: normal Respiratory status: normal Airway patency: baseline Mental status: baseline Post-Op hydration status: normal Vital Signs: Last Vital Signs Temp 36.4 C L 01/26/25 15:15 Pulse 77 01/26/25 15:15 Resp 18 01/26/25 15:15 BP 131/63 01/26/25 15:15 Pulse Ox 98 01/26/25 15:15 O2 Del Method Room Air 01/25/25 19:32 Pain score (VAS): 3 I/O: Intake & Output 01/25/25 01/26/25 01/26/25 23:59 07:59 15:59 Output Total 900 600 Balance -900 -600 Post-procedural complaints: none Patient feedback: Patient satisfied with anesthetic care.
--- NOTE | 2025-01-26 15:30 | WPDANLDNPN2 ---
Anes-Prog Note L&D-Neuraxial Date/Time: 01/26/25 15:30 Neuraxial medications: intrathecal PF morphine Opiod-related complaints: none Patient feedback: Patient satisfied with post-operative pain management.
[2025-01-26 21:50] VITALS: BP 141/80; PULSE 71; RESP 18; TEMP 36.3; O2SAT 100
[2025-01-26] MEDS: SIMETHICONE 80 MG TAB.CHEW PO (21:50)
[2025-01-26] MEDS: LIDOCAINE 5% PATCH 1 PATCH TRANSDERM (21:50)
[2025-01-27] MEDS: IBUPROFEN 600 MG TABLET PO ×2 (03:45→09:20)
[2025-01-27] MEDS: SIMETHICONE 80 MG TAB.CHEW PO (03:45)
[2025-01-27] MEDS: ACETAMINOPHEN 500 MG TABLET 1000 MG PO ×2 (03:45→09:20)
[2025-01-27 08:20] VITALS: BP 129/74; PULSE 67; RESP 18; TEMP 36.8; O2SAT 97
[2025-01-27] MEDS: MULTIVIT/MIN/PREN/FOL AC/IRON TABLET 1 TAB PO (09:20)
[2025-01-27] MEDS: DOCUSATE SODIUM 100 MG CAPSULE PO (09:20)
[2025-01-27] MEDS: SERTRALINE HCL 50 MG TABLET PO (09:20)
--- NOTE | 2025-01-27 09:34 | P.PNOB_ITS ---
OB - PN: Subj Subjective Date/time seen: 01/27/25 09:34 Narrative: Pain OK. Tolerating diet. Would like to go home. OB - PN: Obj Data Labs 01/26/25 03:19 Labs: Laboratory Results - last 24 hr 01/27/25 07:25 POC Capillary Glucose 89 OB - PN A/P Plan day: 2 Comments: A: POD#2, doing well. P: Home to f/u 4 weeks. Exam 2 Narrative: AVSS ABD soft, nontender, fundus firm. Incision c/d/i. EXT nontender Accucheck fasting this morning was 89
[2025-01-27] MEDS: oxyCODONE HCL (*CRX) 5 MG TAB IR PO (09:37)
[2025-01-28 10:04] VITALS: BP 142/75; PULSE 80; RESP 18; TEMP 36.4; O2SAT 99
== END 2025-01-27 10:56 | disposition home or self-care (01) | DRG 786 ==
LOC: ANHLDR 14:21 → ANHOB2 17:44
PROVIDERS: Admitting Provider Obstetrics & Gynecology; PCP Nurse Practitioner Family; Visit Provider Obstetrics & Gynecology
PROC: 10D00Z1 Extraction of Products of Conception, Low, Open Approach (ICD-10-PCS; CPT 59514; principal; 2025-01-25 12:00)
DX: O44.03 Complete placenta previa NOS or without hemorrhage, third trimester (principal); O24.12 Pre-existing type 2 diabetes mellitus, in childbirth; O10.92 Unspecified pre-existing hypertension complicating childbirth; Z37.0 Single live birth; Z3A.36 36 weeks gestation of pregnancy
CPT/HCPCS: 36415; 82948; 85025; 85027; 86593; 86850; 86900; 86901; 88307; J0690; A9270; G0378; G0379; J1200; J1885; J2274; J2405; J2590; J7120